=== PATIENT | female | born 1950 | race Caucasian/White ===

== ENCOUNTER → 2017-11-21 10:44 | Outpatient (CLI) | payer MEDICARE, SELFPAY ==
--- NOTE | 2017-11-21 | DI.RAD.S_ITS ---
PROCEDURE: XR CHEST 2V INDICATIONS: DYSPNEA TECHNIQUE: 2 views of the chest were acquired. COMPARISON: [facility], , CHEST 1 VIEW, 12/13/2016, 11:04. FINDINGS: Surgical changes and devices: Surgical clips right upper quadrant. Lungs and pleura: No pleural effusions or pneumothorax. Lungs are clear. Mediastinum: Mediastinal contours are normal. Heart size is normal. Bones and chest wall: No suspicious bony abnormalities. Mild thoracic spondylosis. Soft tissues appear unremarkable. IMPRESSION: No acute cardiopulmonary abnormality. Dictated by: Jeison Maldonado M.D. on 11/21/2017 at 11:36 Approved by: Jeison Maldonado M.D. on 11/21/2017 at 11:37
== END ==
PROVIDERS: Visit Provider Nurse Practitioner Family
DX: R06.00 Dyspnea, unspecified (principal)
CPT/HCPCS: 71046

== ENCOUNTER → 2017-12-10 07:42 | Outpatient (CLI) | payer MEDICARE, SELFPAY ==
--- NOTE | 2017-12-13 14:36 | PM.PFT.1 ---
Pulmonary Function Test Referral & Results Date Patient Seen: 12/10/17 Requesting provider: lBanka Gonzáles Results: The spirometry demonstrates an FVC of 2.45 L which is 77% of predicted. The FEV1 was measured at 1.95 L which is 80% of predicted. The FEV1/FVC ratio was 79 which is 104% of predicted. Following the administration of bronchodilator there was no appreciable change. Lung volumes show an SVC of 2.67 L which is 88% of predicted. The diffusing capacity was measured at 24.19 which is 92% of predicted. No hemoglobin value was provided, so no correction for potential anemia could be made, if appropriate. The maximum voluntary ventilation was reduced. Interpretation: This study demonstrates mild obstructive lung disease without evidence of benefit following bronchodilator. Lung volumes and diffusing capacity are probably normal. Compared to PFTs performed in December 2016, current study is essentially unchanged. Diffusing capacity was 20.08 in 2017 and currently 24.19 which is probably a significant improvement. Clinical correlation suggested
== END ==
PROVIDERS: Visit Provider Nurse Practitioner Family
DX: R06.00 Dyspnea, unspecified (principal)
CPT/HCPCS: 94010; 94060; 94726; 94729

== ENCOUNTER → 2018-05-14 08:19 | Outpatient (CLI) | payer MEDICARE, SELFPAY ==
--- NOTE | 2018-05-14 | DI.MG.S_ITS ---
BILATERAL DIGITAL SCREENING MAMMOGRAM 3D/2D WITH CAD: 05/14/2018 CLINICAL: Routine screening. Family history of breast cancer. Comparison is made to exams dated: 04/22/2017 mammogram, 04/16/2016 mammogram, and 05/25/2015 breast MRI [facility]. There are scattered fibroglandular elements in both breasts. Current study was also evaluated with a Computer Aided Detection (CAD) system. There is a benign biopsy clip in the right breast. No significant masses, calcifications, or other findings are seen in either breast. There has been no significant interval change. IMPRESSION: NEGATIVE There is no mammographic evidence of malignancy. A 1 year screening mammogram is recommended. This exam was interpreted at Station ID: [id number]. NOTE: For mammograms, a report in lay terms will be sent to the patient. Approximately 15% of breast malignancies will not be visualized mammographically. In the management of a palpable breast mass, a negative mammogram must not discourage biopsy of a clinically suspicious lesion. Electronically Signed By: Lobo yu/eduar:05/14/2018 14:16:16 letter sent: Normal Exam ACR BI-RADS Category 1: Negative [id number]
== END ==
PROVIDERS: PCP Internal Medicine; Visit Provider Internal Medicine
DX: Z12.31 Encounter for screening mammogram for malignant neoplasm of breast (principal); Z80.3 Family history of malignant neoplasm of breast
CPT/HCPCS: 77063; 77067

== ENCOUNTER → 2018-07-22 16:33 | Outpatient (CLI) | payer MEDICARE, SELFPAY ==
--- NOTE | 2018-07-22 16:37 | DI.RAD.S_ITS ---
PROCEDURE: XR CHEST 2V INDICATIONS: COUGH,CONGESTION SOB TECHNIQUE: 2 views of the chest were acquired. COMPARISON: [facility], CT, PE STUDY (CTA CHEST), 06/20/2016, 15:58. [facility], CR, XR CHEST 2V, 11/21/2017, 10:33. FINDINGS: Surgical changes and devices: None. Lungs and pleura: Lungs are clear. Biapical pleural parenchymal thickening, right greater than left, is unchanged. No pleural effusions or pneumothorax. Mediastinum: Mediastinal contours are normal. Heart size is normal. Bones and chest wall: No suspicious bony abnormalities. Soft tissues appear unremarkable. IMPRESSION: Stable chest films with no evidence of a acute pulmonary process. Dictated by: Charbel Grove M.D. on 07/22/2018 at 17:03 Approved by: Charbel Grove M.D. on 07/22/2018 at 17:06
== END ==
PROVIDERS: PCP Internal Medicine; Visit Provider Nurse Practitioner Family
DX: R05 Cough (principal); R09.89 Other specified symptoms and signs involving the circulatory and respiratory systems; R06.02 Shortness of breath
CPT/HCPCS: 71046

== ENCOUNTER 2018-10-01 10:06 | Emergency (ER) | payer MEDICARE, SELFPAY ==
[2018-10-01 10:10] VITALS: BP 128/90; PULSE 62; RESP 20; TEMP 36.2; O2SAT 100
--- NOTE | 2018-10-01 10:30 | ED_ITS ---
HPI - Neuro Symptoms/Deficit General Chief Complaint: Neuro Symptoms/Deficit Stated Complaint: sent over by doctor, dizzy, disconnected Time Seen by Provider: 10/01/18 10:29 Source: patient Mode of arrival: ambulatory Limitations: no limitations History of Present Illness HPI Narrative: Patient is a 68-year-old female not on blood thinner sent over by her primary doctor for evaluation of potential stroke. Patient states that several days ago she had a sudden onset of vision changes where she saw all triple. She states that it was with both eyes and with each eye individual. That event lasted approximately 10 minutes and then resolved. She also states that during the time she had right lower extremity weakness which also seems to have greatly improved if not completely resolved. Since then she has felt unsteady. Has vague vision changes. No headaches. Has never had anything like this before. Was seen by her primary doctor who ordered a outpatient MRI however after further consideration thought that this should be done more urgently so he sent her to the emergency room for further evaluation. On Anticoagulants: No Related Data Home Medications Medication Instructions Recorded Confirmed sertraline 100 mg PO BEDTIME #0 12/13/16 10/01/18 Vitamin B-12 1 tab PO DAILY 10/01/18 10/01/18 albuterol sulfate [Ventolin HFA] 1 puff INHALATION PRN PRN 10/01/18 10/01/18 aspirin 81 mg PO DAILY 10/01/18 10/01/18 tiotropium bromide [Spiriva with 1 puff INHALATION DAILY 10/01/18 10/01/18 HandiHaler] Previous Rx's Medication Instructions Recorded loratadine [Claritin] 10 mg PO DAILY PRN #30 tab 10/01/18 meclizine 25 mg PO BID-TID PRN #14 tab 10/01/18 Allergies Allergy/AdvReac Type Severity Reaction Status Date / Time No Known Drug Allergies Allergy Verified 10/01/18 10:18 Review of Systems Constitutional Denies chills, Denies fever(s), Denies frequent falls, Denies malaise and Denies weakness Eyes Comments: Vision changes 3 days ago but none today ENT Ears, Nose, Mouth, and Throat: Reports dizziness, Denies neck pain, Reports disequilibrium, Denies sinus pressure, Denies sore throat and Denies throat swelling Cardiovascular Denies chest pain and Denies dyspnea Respiratory Denies dyspnea Gastrointestinal Gastrointestinal: Denies abdominal pain, Denies nausea and Denies vomiting Musculoskeletal Denies myalgias, Denies arthralgias and Denies neck pain Integumentary/Breasts Denies lesions and Denies rash Neurologic Denies behavioral changes, Denies confusion, Reports dizziness, Denies frequent falls, Reports disequilibrium and Denies weakness Psychiatric Denies behavioral changes and Denies confusion Hematologic/Lymphatic Denies easy bleeding and Denies easy bruising Allergic/Immunologic Denies throat swelling [facility] Medical History Reactive airway disease (Acute) Social History Smoking Status: Never smoker Social History Smoking Status: Never smoker Exam Initial Vital Signs Initial Vital Signs: Vital Signs Temperature 97.1 F L 10/01/18 10:10 Pulse Rate 62 10/01/18 10:10 Respiratory Rate 20 10/01/18 10:10 Blood Pressure 128/90 10/01/18 10:10 Pulse Oximetry 100 10/01/18 10:10 Const General: cooperative, well developed, well groomed and No acute distress Orientation: alert, awake and oriented x3 HENMT Head: normal to inspection and normocephalic Ears: TM's normal bilaterally Nose: external nose normal Eyes Eyelids: eyelids normal Pupils: PERRL EOM: EOM intact bilaterally Resp Effort & Inspection: normal respiratory effort Auscultation: clear to auscultation bilaterally Cardio Rate: regular rate Rhythm: regular rhythm Pulses: radial pulses present GI Inspection: non-distended Palpation: soft, No firm and No tender Skin Lesions: no lesions Rashes: no rashes Neuro General: alert, awake and oriented x3 Cranial Nerves: CN's II-XI intact bilaterally Cognition: normal cognition Speech: speech normal Motor: muscle tone normal throughout Sensory Exam: no sensory deficits noted Extrem General: normal to inspection and capillary refill normal Psych Appearance: grossly normal and well kempt Scores GCS Winters coma scale eye opening: Spontaneous Winters coma scale verbal response: Orientated Maris coma scale motor response: Obey commands Winters coma scale total score: 15 NIH Stroke Scale Level of Conciousness: Alert, keenly responsive Ask month/age: Answers both questions correctly. Open/close eyes, close hand: Performs both tasks correctly Best gaze horizontal: Normal Visual pedro: No visual loss Facial palsy: Normal symetrical movement Left arm drift: No drift for full 10 sec Right arm drift: No drift for full 10 sec Left leg drift: No drift for full 10 sec Right leg drift: No drift for full 10 sec Limb ataxia: Absent Sensory on face/arms/legs: Normal, no sensory loss Best language: No aphasia, normal Dysarthria: Normal Extinction or inattention: No abnormality Total NIH Stroke scale score: 0 Course Orders Ordered: ED Orders 10/01/18 10:30 MR stroke Stat 10/01/18 10:32 Complete Blood Count AUTO DIFF Stat Comprehensive Metabolic Panel Stat Lipase Stat Partial Thromboplastin Time Stat Prothrombin Time INR Stat Thyroid Stimulating Hormone Stat Sodium Chloride (Normal Saline 0.9%) 1,000 mls @ 150 mls/hr IV CONT SERA Last Admin: 10/01/18 11:18 Dose: 150 mls/hr Discontinued Medications Diazepam (Valium) 5 mg PO NOW ONE Stop: 10/01/18 10:38 Last Admin: 10/01/18 10:40 Dose: 5 mg Vital Signs - 8 hr 10/01/18 10:10 10/01/18 11:24 Temperature 97.1 F L Pulse Rate 62 67 Respiratory Rate 20 17 Blood Pressure 128/90 Blood Pressure [Left Arm] 120/83 Pulse Oximetry 100 97 MDM - Neuro Symptoms/Deficit Lab Data Attestation: I reviewed the patient's lab results. Result diagrams: 10/01/18 10:32 10/01/18 10:32 Lab Results 10/01/18 10/01/18 10/01/18 Range/Units 10:32 10:32 10:32 WBC 4.6 (4.5-11.0) X10^3/uL RBC 4.23 (4.0-5.2) X10^6/uL Hgb 13.7 (12.0-16.0) g/dL Hct 39.4 (36-46) % MCV 93.2 (80-100) fL MCH 32.3 (26-34) PG MCHC 34.7 (30-36) % RDW 12.4 (11.6-14.8) % Plt Count 184 (150-400) X10^3/uL Neut % (Auto) 56.6 (50-75) % Lymph % (Auto) 30.5 (25-40) % Pendleton % (Auto) 7.3 (3-14) % Eos % (Auto) 4.8 H (2-4) % Baso % (Auto) 0.8 (0-2) % Neut # (Auto) 2600 (8031-0710) /uL Lymph # (Auto) 1400 (5157-8389) /uL Pendleton # (Auto) 300 (0-900) /uL Eos # (Auto) 200 (0-450) /uL Baso # (Auto) 0 (0-100) /uL PT 10.8 (10.1-12.7) SECONDS INR 0.9 (0.9-1.3) APTT 37 H (26.4-36.2) SECONDS Sodium 141 (137-145) mmol/L Potassium 3.7 (3.4-5.1) mmol/L Chloride 105 (98-107) mmol/L Carbon Dioxide 25 (22-32) mmol/L BUN 14 (7-17) mg/dL Creatinine 0.70 (0.52-1.04) mg/dL Estimated GFR > 60.0 (>60) mL/min BUN/Creatinine Ratio 20.0 (6-22) Glucose 77 L (80-110) mg/dL Calcium 9.8 (8.4-10.2) mg/dL Total Bilirubin 0.4 (0.2-1.3) mg/dL AST 34 (14-36) IU/L ALT 31 (9-52) IU/L Alkaline Phosphatase 81 (38-126) U/L Total Protein 7.2 (6.3-8.2) g/dL Albumin 4.5 (3.5-5.0) g/dL Globulin 2.7 (1.7-4.1) g/dL Albumin/Globulin Ratio 1.7 (1.0-2.8) Lipase 44 (23-300) U/L TSH (0.47-4.68) uIU/mL 10/01/18 Range/Units 10:32 WBC (4.5-11.0) X10^3/uL RBC (4.0-5.2) X10^6/uL Hgb (12.0-16.0) g/dL Hct (36-46) % MCV (80-100) fL MCH (26-34) PG MCHC (30-36) % RDW (11.6-14.8) % Plt Count (150-400) X10^3/uL Neut % (Auto) (50-75) % Lymph % (Auto) (25-40) % Pendleton % (Auto) (3-14) % Eos % (Auto) (2-4) % Baso % (Auto) (0-2) % Neut # (Auto) (6950-8519) /uL Lymph # (Auto) (1091-8009) /uL Pendleton # (Auto) (0-900) /uL Eos # (Auto) (0-450) /uL Baso # (Auto) (0-100) /uL PT (10.1-12.7) SECONDS INR (0.9-1.3) APTT (26.4-36.2) SECONDS Sodium (137-145) mmol/L Potassium (3.4-5.1) mmol/L Chloride (98-107) mmol/L Carbon Dioxide (22-32) mmol/L BUN (7-17) mg/dL Creatinine (0.52-1.04) mg/dL Estimated GFR (>60) mL/min BUN/Creatinine Ratio (6-22) Glucose (80-110) mg/dL Calcium (8.4-10.2) mg/dL Total Bilirubin (0.2-1.3) mg/dL AST (14-36) IU/L ALT (9-52) IU/L Alkaline Phosphatase (38-126) U/L Total Protein (6.3-8.2) g/dL Albumin (3.5-5.0) g/dL Globulin (1.7-4.1) g/dL Albumin/Globulin Ratio (1.0-2.8) Lipase (23-300) U/L TSH 3.12 (0.47-4.68) uIU/mL Imaging Data MRI brain: Radiologist's impression: Magnetic Resonance Report Signed Patient: Radha Steinberg KMR#: [id number] : 1950Acct:[id number] Age/Sex: 68 / FDate of Service: 10/01/18 Loc: ED Accession Number: [id number] Procedure: MR stroke Ordering Provider: Ranulfo Gómez D.O. PROCEDURE: MR STROKE Pre- and post-contrast brain MRI, non-contrast brain MR angiogram, pre- and postcontrast neck MR angiogram INDICATIONS: Blurry vision, ataxia, sent over by for workup TECHNIQUE: Brain: Noncontrast axial T1 spin echo, axial T2 fast spin echo, sagittal and axial FLAIR, coronal T2 fast spin echo, axial gradient echo, axial diffusion and ADC through the brain. After the administration of contrast, axial 3D VIBE of the cranial vasculature and brain. Brain MRA: Non-contrast 3-D time of flight MR angiogram, with multiple khreurj-chjvevdfr-wywtxnylnc (MIP) reformats performed. Neck MRA: Axial and sagittal TruFISP through the neck. Coronal dynamic MR angiogram during administration of contrast in the arterial and venous phases, with 3- dimenstional boljyjv-iravsehnp-kuyeasmmvt (MIP) reformats constructed from subtraction images. COMPARISON: [facility], MR, BRAIN WITHOUT CONTRAST, 12/13/2016, 14:23. FINDINGS: Image quality: Excellent. BRAIN: CSF spaces: Ventricles are normal in size and shape. Basal cisterns are patent. No extra-axial fluid collections. Brain: No intracranial bleeds or mass effects. Oreilly-white matter interface is normal. Age-appropriate cerebral and cerebellar cortical atrophy and mild periventricular white matter chronic ischemic microangiopathic changes are seen. Diffusion weighted images show no acute ischemic insults. Brainstem appears normal. Normal intravascular flow voids are present. No abnormal intracranial enhancement. Skull and face: Calvarial marrow signal is normal. Orbits appear normal. Sinuses: Sinuses and mastoids are clear. BRAIN MR ANGIOGRAM: Anterior circulation: Intracranial internal carotid arteries are normal in size and enhancement. The flow within the paired anterior cerebral arteries is normal and symmetric. The flow within the middle cerebral arteries is normal and symmetric. The anterior communicating artery is seen. No stenoses, occlusions, or aneurysms. Posterior circulation: The visualized portions of the vertebral arteries demonstrate normal caliber, and join to form a normal appearing basilar artery. The flow within the posterior cerebral arteries is normal and symmetric. No stenoses, occlusions, or aneurysms. NECK MR ANGIOGRAM: Carotids: Great vessels demonstrate a conventional anatomy as they arise from the aortic arch. The origins of the common carotid arteries appear patent. The calibers and courses of both common carotid arteries are normal. The bifurcation regions appear normal bilaterally. The internal carotid arteries demonstrate normal course and caliber. Posterior circulation: The origins of the vertebral arteries appear patent. More superior portions of both vertebral arteries demonstrate normal course and caliber, and join to form a normal appearing basilar artery. Miscellaneous: Subclavian arteries appear patent. Pre-contrast images through the neck show no soft tissue abnormalities. IMPRESSION: BRAIN MRI: No evidence of acute infarction, intracranial bleed or midline shift. No area of abnormal contrast enhancement. Age-appropriate atrophy and mild periventric ular white matter microangiopathic changes. BRAIN MR ANGIOGRAM: No hemodynamically significant stenosis or aneurysm is seen in intracranial circulation. NECK MR ANGIOGRAM: No hemodynamically significant stenosis is noted in bilateral neck arteries. Dictated by: Zaheer Suggs M.D. on 10/01/2018 at 11:24 Approved by: Zaheer Suggs M.D. on 10/01/2018 at 11:36 ECG Data Attestation: I personally reviewed and interpreted this ECG as follows: Prior ECG tracings: not available for review Interpretation: Sinus bradycardia Ventricular rate of 59 Normal axis Normal intervals Normal QRS Normal QTC No ST T wave changes MDM Narrative Medical decision making narrative: Labs unremarkable, MRI of the brain shows no signs of acute stroke. EKG is unremarkable. Patient with a nonfocal neurologic exam. I did discuss the case with Dr. weldon who sent her over for the MRI and who is also her primary doctor. Will attempt meclizine to see if this does not improve her symptoms. Also start her on Claritin. Patient also states that much of her symptoms improved after receiving the Valium for the MRI. She was concerned that potentially this was ?nerves? this could be an anxiety issue however I told her that the workup for stroke was appropriate. She expressed understanding and agreement. She will call Dr. Garvin office for follow-up. She was given return precautions. Her is at bedside for these discussions and also expressed understanding and agreement. Discharge Plan Departure Patient Disposition: Home Clinical Impression: Dizziness Instructions: DI for Dizziness-Nonvertigo Activity Restrictions/Additional Instructions: Dr. weldon is expecting your call today to schedule appointment in the next couple days. Take the medications as directed. Return to the emergency department for any new or worsening symptoms Prescriptions: New meclizine 25 mg tablet 25 mg PO BID-TID PRN (Reason: motion sickness) Qty: 14 RF: 0 loratadine [Claritin] 10 mg tablet 10 mg PO DAILY PRN (Reason: allergy symptoms) Qty: 30 RF: 0 No Action sertraline 100 MG tablet 100 mg PO BEDTIME Qty: 0 RF: 0 aspirin 81 mg Tablet,Delayed Release (Dr/Ec) 81 mg PO DAILY RF: 0 albuterol sulfate [Ventolin HFA] 90 mcg/actuation Hfa Aerosol Inhaler 1 puff INHALATION PRN PRN (Reason: Shortness Of Breath) RF: 0 Spiriva with HandiHaler 18 mcg capsule, w/inhalation device 1 puff Inhalation DAILY RF: 0 Vitamin B-12 1 tab PO DAILY RF: 0 Referrals: Michael Weldon MD [Primary Care Provider] -
[2018-10-01] MEDS: diazePAM 5 MG TABLET PO (10:40)
[2018-10-01 10:55] LABS: Add Manual Diff / Slide Review NO; Basophils Absolute Auto 0 /uL (0-100); Basophils Percent Auto 0.8 % (0-2); Eosinophils Absolute Auto 200 /uL (0-450); Eosinophils Percent Auto 4.8 % (2-4); Hematocrit 39.4 % (36-46); Hemoglobin 13.7 g/dL (12.0-16.0); Lymphocytes Absolute Auto 1400 /uL (1100-4500); Lymphocytes Percent Auto 30.5 % (25-40); Mean Corpuscular HGB Conc 34.7 % (30-36); Mean Corpuscular Hemoglobin 32.3 PG (26-34); Mean Corpuscular Volume 93.2 fL (80-100); Monocytes Absolute Auto 300 /uL (0-900); Monocytes Percent Auto 7.3 % (3-14); Neutrophils Absolute Auto 2600 /uL (1500-7000); Neutrophils Percent Auto 56.6 % (50-75); Platelet Count 184 X10^3/uL (150-400); Red Blood Cell Count 4.23 X10^6/uL (4.0-5.2); Red Cell Distribution Width 12.4 % (11.6-14.8); White Blood Cell Count 4.6 X10^3/uL (4.5-11.0)
[2018-10-01 10:59] LABS: INR 0.9 (0.9-1.3); Prothrombin Time 10.8 SECONDS (10.1-12.7)
[2018-10-01 11:02] LABS: PTT Partial Thromboplastin Tim 37 SECONDS (26.4-36.2)
[2018-10-01 11:11] LABS: Alanine Aminotransferase 31 IU/L (9-52); Albumin 4.5 g/dL (3.5-5.0); Albumin Globulin Ratio 1.7 (1.0-2.8); Alkaline Phosphatase 81 U/L (38-126); Aspartate Aminotransferase 34 IU/L (14-36); Bilirubin Total 0.4 mg/dL (0.2-1.3); Blood Urea Nitrogen 14 mg/dL (7-17); Calcium 9.8 mg/dL (8.4-10.2); Carbon Dioxide 25 mmol/L (22-32); Chloride 105 mmol/L (98-107); Estimated Glomerular Filt Rate > 60.0 mL/min (>60); Globulin 2.7 g/dL (1.7-4.1); Glucose 77 mg/dL (80-110); HEMOLYSIS < 15 (0-50); Lipase 44 U/L (23-300); Potassium 3.7 mmol/L (3.4-5.1); Sodium 141 mmol/L (137-145); Total Protein 7.2 g/dL (6.3-8.2)
[2018-10-01] MEDS: SODIUM CHLORIDE 0.9% 1,000 ML 150 ML IV (11:18)
[2018-10-01 11:24] VITALS: BP 120/83; PULSE 67; RESP 17; O2SAT 97
[2018-10-01 11:41] LABS: Thyroid Stimulating Hormone 3.12 uIU/mL (0.47-4.68)
[2018-10-01 12:31] VITALS: BP 132/96; PULSE 63; RESP 17; O2SAT 98
== END 2018-10-01 12:33 | disposition home or self-care (01) ==
PROVIDERS: Emergency Provider Emergency Medicine; PCP Internal Medicine
DX: R42 Dizziness and giddiness (principal); R53.1 Weakness; H53.8 Other visual disturbances
CPT/HCPCS: 36591; 70553; 80053; 83690; 84443; 85025; 85610; 85730; 93005; 93010; 96360; 99283; 99285; 99291; A9579

== ENCOUNTER → 2018-10-22 10:23 | Outpatient (CLI) | payer MEDICARE, SELFPAY ==
--- NOTE | 2018-10-22 11:11 | PM.TREADMILL ---
Cardiac Stress Test Report Referral & Results Date Patient Seen: 10/22/18 Requesting provider: Michael Weldon Indication: TIA Rest ECG: Unremarkable Procedure Note: Today following both written and verbal informed consent the patient was exercised according to a standard Ronaldo protocol patient went for a total of or minutes 32 seconds achieving a maximum heart rate of 149 maximum systolic blood pressure of 160. This is approximately 7.0 METS. Exercise was terminated at this point because of targets were met as well as moderate dyspnea. Patient was also given Cardiolite through a previously started Hep-Lock IV by the nuclear reactor engineer approximately 1 minute prior to the cessation of exercise. No ST-T segment changes identified Normal heart rate and blood pressure response to exercise Functional aerobic impairment rated 0 on the sedentary scale Impression: No evidence of ischemia based on ECG criteria Average exercise capacity Please see perfusion imaging report as well Please note: Actual ECG tracings can be found in the PACS system.
--- NOTE | 2018-10-23 17:10 | DI.NM.S_ITS ---
DATE OF SERVICE: 10/22/2018 PROCEDURE: Two-day treadmill nuclear stress test. INDICATIONS: TIA. RADIOISOTOPES: Resting TC-99m dose was 23.8 and stress Tc-99m dose was 24.8. SYMPTOMS: No angina during the stress test. Patient had njaw-wt-wtaielup dyspnea with exertion. CLINICAL: Patient exercised for 4 minutes and 32 seconds reaching 7.0. METs. RUFINO was 0% on sedentary scale of -15% and +20% on active scale; 99 % of maximum predicted heart rate reached, suggesting adequate stress. Appropriate hemodynamic response to exercise. No chest pain with exercise. Dyspnea noted during exercise. ECG: No ST changes to suggest ischemia during stress test. Sinus rhythm present during the study. PERFUSION IMAGES: No provision evidence of ischemia or infarction. GATED IMAGES: Normal left ventricular size, wall motion, and systolic function (post stress EF 68%). TID ratio 0.97. Lung to heart ratio is 0.29, normal. CONCLUSIONS: Low risk, normal treadmill nuclear stress test. 1. No perfusion evidence of ischemia or infarction. 2. Normal left ventricle or size, wall motion, and systolic function (post stress ejection fraction (EF) 68%). 3. No ECG evidence of ischemia. 4. No angina during the stress test. Patient noted to have dyspnea with exertion. 5. Fair exercise tolerance (7.0 METs, RUFINO 0% on sedentary scale, +20% on active scale). Target heart rate achieved. Appropriate blood pressure response to exercise. 5. Compared to the nuclear stress test done on 12/13/2016, no significant change. Radha Steinberg - WILLIAM/keyonna/ doc#: [id number]/job#: [id number] dd: 10/23/2018 13:09:00 dt: 10/23/2018 16:53:00 DICTATING /COPIES TO: Ashley Crisostomo MD COPIES MNE: FEDERICO
== END ==
PROVIDERS: PCP Internal Medicine; Visit Provider Internal Medicine
DX: G45.9 Transient cerebral ischemic attack, unspecified (principal); R06.00 Dyspnea, unspecified
CPT/HCPCS: 78452; 93016; 93017; 93018; A9502

== ENCOUNTER → 2018-12-15 07:45 | Outpatient (CLI) | payer MEDICARE, SELFPAY ==
--- NOTE | 2018-12-15 | DI.RAD.S_ITS ---
PROCEDURE: FL BARIUM SWALLOW INDICATIONS: Chest pain due to reflux suspected, prior history of fundoplication for excessive reflux. Unexplained pain. COMPARISON: [facility], , BARIUM SWALLOW WITH SPEECH, 08/31/2015, 10:29. FINDINGS: Function: There is normal esophageal peristalsis. There is mild spontaneous and elicited gastroesophageal reflux through the area of fundoplication, extending to the junction of the upper and middle thirds of the esophagus episodically. There is a distortion of the esophagogastric junction consistent with fundoplication, which is smoothly marginated. Morphology: Air-contrast images demonstrate normal mucosal morphology. Single contrast views show no esophageal strictures, extrinsic mass effects, or diverticula. Limited images of the stomach demonstrate normal appearance. IMPRESSION: Prior fundoplication, with mild episodic spontaneous and elicited gastroesophageal reflux allowing reflux to extend to the junction of the upper and middle thirds of the esophagus. No associated evidence of esophageal stricture or mucosal irregularity. A mass lesion is not found. Dictated by: Aleksey Catherine M.D. on 12/15/2018 at 8:58 Approved by: Aleksey Catherine M.D. on 12/15/2018 at 9:00
== END ==
PROVIDERS: PCP Internal Medicine; Visit Provider Internal Medicine
DX: R07.89 Other chest pain (principal); K21.9 Gastro-esophageal reflux disease without esophagitis
CPT/HCPCS: 74220

== ENCOUNTER → 2019-04-09 15:10 | Outpatient (CLI) | payer MEDICARE, SELFPAY ==
[2019-04-09 15:39] LABS: Add Manual Diff / Slide Review NO; Basophils Absolute Auto 0 /uL (0-100); Basophils Percent Auto 0.7 % (0-2); Eosinophils Absolute Auto 200 /uL (0-450); Eosinophils Percent Auto 3.8 % (2-4); Hematocrit 39.4 % (36-46); Hemoglobin 13.3 g/dL (12.0-16.0); Lymphocytes Absolute Auto 2000 /uL (1100-4500); Lymphocytes Percent Auto 31.8 % (25-40); Mean Corpuscular HGB Conc 33.7 % (30-36); Mean Corpuscular Hemoglobin 31.2 PG (26-34); Mean Corpuscular Volume 92.5 fL (80-100); Monocytes Absolute Auto 500 /uL (0-900); Monocytes Percent Auto 8.5 % (3-14); Neutrophils Absolute Auto 3400 /uL (1500-7000); Neutrophils Percent Auto 55.2 % (50-75); Platelet Count 183 X10^3/uL (150-400); Red Blood Cell Count 4.26 X10^6/uL (4.0-5.2); Red Cell Distribution Width 12.9 % (11.6-14.8); White Blood Cell Count 6.2 X10^3/uL (4.5-11.0)
[2019-04-09 16:34] LABS: Alanine Aminotransferase 29 IU/L (9-52); Albumin 4.6 g/dL (3.5-5.0); Albumin Globulin Ratio 1.7 (1.0-2.8); Alkaline Phosphatase 93 U/L (38-126); Aspartate Aminotransferase 38 IU/L (14-36); BUN Creatinine Ratio 22.9 (6-22); Bilirubin Total 0.4 mg/dL (0.2-1.3); Blood Urea Nitrogen 16 mg/dL (7-17); Calcium 10.1 mg/dL (8.4-10.2); Carbon Dioxide 29 mmol/L (22-32); Chloride 101 mmol/L (98-107); Estimated Glomerular Filt Rate > 60.0 mL/min (>60); Globulin 2.7 g/dL (1.7-4.1); Glucose 81 mg/dL (80-110); HEMOLYSIS < 15 (0-50); Potassium 4.2 mmol/L (3.4-5.1); Sodium 140 mmol/L (137-145); Total Protein 7.3 g/dL (6.3-8.2)
== END ==
PROVIDERS: PCP Internal Medicine; Visit Provider Nurse Practitioner Family
DX: R19.7 Diarrhea, unspecified (principal); K92.1 Melena
CPT/HCPCS: 36415; 80053; 85025

== ENCOUNTER → 2019-04-24 12:38 | Outpatient (CLI) | payer MEDICARE, SELFPAY ==
--- NOTE | 2019-04-24 | DI.MG.S_ITS ---
BILATERAL DIGITAL DIAGNOSTIC MAMMOGRAM 3D/2D: 04/24/2019 CLINICAL: Left breast lump and nipple pain. Comparison is made to exams dated: 05/14/2018 mammogram, 04/22/2017 mammogram, and 04/16/2016 mammogram - [facility]. There are scattered fibroglandular elements in both breasts. There is a triangular marker overlying the skin of the upper outer left breast at the site of the patient's reported palpable abnormality. There is no underlying mammographic abnormality directly underlying the triangular marker. There is an oval indistinct low density asymmetry located slightly inferior and lateral to to the triangular marker at anterior to middle depth. There is no underlying mass or abnormality on mammography to explain patient's reported left nipple and retroareolar pain. There are circular mole markers overlying the right breast. There is a biopsy clip in the superior lateral right breast. IMPRESSION: INCOMPLETE: NEEDS ADDITIONAL IMAGING EVALUATION There is a triangular marker overlying the skin of the upper outer left breast at the site of the patient's reported palpable abnormality. There is no underlying mammographic abnormality directly underlying the triangular marker. There is an oval indistinct low density asymmetry located slightly inferior and lateral to to the triangular marker at anterior to middle depth. Targeted diagnostic ultrasound recommended for further evaluation, which will be performed immediately following this exam. There is no underlying mass or abnormality on mammography to explain patient's reported left nipple and retroareolar pain. Targeted diagnostic ultrasound recommended for further evaluation, which will be performed immediately following this exam. This exam was interpreted at Station ID: [id number]. NOTE: For mammograms, a report in lay terms will be sent to the patient. Approximately 15% of breast malignancies will not be visualized mammographically. In the management of a palpable breast mass, a negative mammogram must not discourage biopsy of a clinically suspicious lesion. Electronically Signed By: Mauri Carter M.D. ecl/:04/24/2019 17:00:34 copy to: Michael Weldon ACR BI-RADS Category 0: Incomplete 3340F
--- NOTE | 2019-04-24 | DI.US.S_ITS ---
LIMITED ULTRASOUND OF LEFT BREAST: 04/24/2019 CLINICAL: Palpable left breast lump. Intermittent pain in the left breast. Comparison is made to exams dated: 04/24/2019 mammogram, 05/14/2018 mammogram, 04/22/2017 mammogram, 04/16/2016 mammogram, 05/25/2015 breast MRI, and 04/08/2015 mammogram - [facility]. Color flow and real-time ultrasound of the left breast outer aspect and retroareolar regions were performed. Oreilly scale images of the real-time examination were reviewed. Targeted ultrasound at the site of the patient's reported focal palpable abnormality of the left breast at the 12 o'clock position 3 cm from nipple demonstrates no underlying mass or abnormality. Targeted ultrasound of the left breast nipple and retroareolar region and along the 12:00 position at the site of patient's reported left breast tenderness and pain demonstrates no underlying mass or abnormality. Targeted ultrasound of an area of lumpiness/palpable abnormality as described by the patient in the left breast lower outer quadrant approximately 4-5 cm from the nipple demonstrates no underlying mass or abnormality. Targeted ultrasound of an area of focal tenderness in the left breast at 2:00 position 9 cm from the nipple demonstrates a benign-appearing intramammary lymph node measuring 0.5 x 0.6 x 0.2 cm with no focal cortical thickening and expected hilar vascularity on Doppler imaging. Targeted ultrasound of the upper-outer quadrant of the left breast demonstrates no other mass or abnormality to correlate with the oval low density asymmetry described on comparison mammogram of 04/24/19. Target ultrasound of the left axilla and left axillary tail pain demonstrates no left axillary tail or axilary mass or lymphadenopathy to correlate with patient's upper outer left breast pain, with a benign-appearing left axillary lymph node measuring 0.8 x 0.5 x 0.6 cm with no focal cortical thickening and preserved fatty hilum that demonstrates expected hilar vascularity on Doppler imaging. IMPRESSION: PROBABLY BENIGN 1) Targeted ultrasound of an area of focal tenderness in the left breast at 2:00 position 9 cm from the nipple demonstrates a 0.6 cm benign-appearing intramammary lymph node. Targeted ultrasound demonstrates no other mass or abnormality to correlate with the oval low density asymmetry described on comparison mammogram of 04/24/19 in the upper outer quadrant of the left breast. A follow up diagnostic mammogram in 6 months (with ultrasound if indicated) is recommended to demonstrate continued stability. The patient is advised to monitor her breasts and to return sooner for re-evaluation should she feel anything grow or change. 2) No ultrasound findings to explain the patient's remaining focal palpable abnormalities, breast pain, and breast tenderness as described above. Recommend clinical followup for further evaluation and management. This exam was interpreted at Station ID: [id number]. Electronically Signed By: Mauri Carter M.D. ecl/:04/24/2019 17:07:44 copy to: Michael Weldon letter sent: Followup Recommended Ultrasound BI-RADS: 3 Probably benign
== END ==
PROVIDERS: PCP Internal Medicine; Visit Provider Nurse Practitioner Family
DX: R92.8 Other abnormal and inconclusive findings on diagnostic imaging of breast (principal); N63.21 Unspecified lump in the left breast, upper outer quadrant; N64.4 Mastodynia
CPT/HCPCS: 76642; 77066; G0279

== ENCOUNTER 2019-08-27 11:55 | Emergency (ER) | payer MEDICARE, SELFPAY ==
[2019-08-27 12:00] VITALS: BP 120/76; PULSE 100; RESP 17; TEMP 38; O2SAT 97
--- NOTE | 2019-08-27 12:31 | DI.RAD.S_ITS ---
PROCEDURE: XR CHEST 2V INDICATIONS: shortness of breath/cough TECHNIQUE: 2 views of the chest were acquired. COMPARISON: [facility], CR, XR CHEST 2V, 07/22/2018, 16:39. FINDINGS: Surgical changes and devices: None. Lungs and pleura: Lungs are clear. No pleural effusions or pneumothorax. Mediastinum: Mediastinal contours are normal. Heart size is normal. Bones and chest wall: No suspicious bony abnormalities. Soft tissues appear unremarkable. IMPRESSION: No acute cardiopulmonary pathology. Dictated by: Zaheer Suggs M.D. on 08/27/2019 at 13:02 Approved by: Zaheer Suggs M.D. on 08/27/2019 at 13:02
--- NOTE | 2019-08-27 12:43 | ED_ITS ---
HPI - URI/Sore Throat <Susan Dickens, KENO WRITER / RUNNER - Last Filed: 08/27/19 21:49> General Chief Complaint: Shortness of Breath/Dyspnea Stated Complaint: states cant breath,sore throat,headache Time Seen by Provider: 08/27/19 12:06 Source: patient and family Mode of arrival: Ambulatory History of Present Illness HPI Narrative: 69yo sent by the clinic from Dr. Weldon for concerns of increasing lower respiratory symptoms. The patient states she has a history of small airway disease related to GERD, she states she takes Advair twice a day in uses her albuterol inhaler when needed. Patient states her and her were traveling from [place] last week, her had a cough, fever, and rhinorrhea 6 days ago which resolved after 24 hours. Patient states she develops symptoms approximately 6 days ago as well. She initially had rhinorrhea, dry cough, and fatigue. She was seen by Dr. weldon on Saturday, patient reports her lungs were clear at that time. Saturday (yesterday) patient developed a fever of 101F wh ich was reduced with Tylenol. She started to feel better this morning but then had an increase and coughing and shortness of breath, she also developed a fever of 100F. Patient called Dr. Weldon who recommended that she be seen in the emergency department. Patient denies any wheezing, productive cough (states it is rather dry), dizziness, vision changes, abdominal pain, vomiting, diarrhea, or any other concerns. She did states she occasionally an intermittent dull aching 4/10 pain on the right side of her neck for the past month, this is worse with movement, laying on her pillow wrong, and the pain is better with heat and massage. Related Data Home Medications Medication Instructions Recorded Confirmed albuterol sulfate [Ventolin HFA] 1 puff INHALATION PRN PRN 10/01/18 08/27/19 cyanocobalamin (vitamin B-12) 2,000 mcg PO DAILY 10/01/18 08/27/19 [Vitamin B-12] fluticasone propion-salmeterol 1 inh INHALATION BID 08/27/19 08/27/19 [Advair HFA] omeprazole 40 mg PO DAILY 08/27/19 08/27/19 Previous Rx's Medication Instructions Recorded oseltamivir [Tamiflu] 75 mg PO BID 5 Days #10 cap 08/27/19 oseltamivir [Tamiflu] 75 mg PO BID 5 Days #10 cap 08/27/19 Allergies Allergy/AdvReac Type Severity Reaction Status Date / Time No Known Drug Allergies Allergy Verified 08/27/19 12:31 Review of Systems <TYREE Vargas - Last Filed: 08/27/19 21:49> Review of Systems Narrative: REVIEW OF SYSTEMS: GENERAL: Reports fevers, see HPI. HENT: No head trauma or hearing loss. EYES: No loss of vision, double vision, eye pain, irritation or discharge. CARDIOVASCULAR: No syncope. RESPIRATORY: Reports cough, see HPI. GASTROINTESTINAL: No nausea, vomiting, diarrhea, or constipation. MUSCULOSKELETAL: No weakness or injury. INTEGUMENTARY: No rash, lesions, or pruritus. NEURO: No memory loss, or confusion. Patient History <TYREE Vargas - Last Filed: 08/27/19 21:49> Social History Smoking Status: Never smoker Smoking Status: Never smoker alcohol intake frequency: holidays/special occasions only Substance Use Type: does not use Exam <TYREE Vargas - Last Filed: 08/27/19 21:49> Initial Vital Signs Initial Vital Signs: Vital Signs Temperature 100.4 F H 08/27/19 12:00 Pulse Rate 100 H 08/27/19 12:00 Respiratory Rate 17 08/27/19 12:00 Blood Pressure 120/76 08/27/19 12:00 Pulse Oximetry 97 08/27/19 12:00 PHYSICAL EXAMINATION: GENERAL: Well groomed, alert, and cooperative. Answers questions promptly and appropriately. Vital signs noted. HENT: Normocephalic, atraumatic. Ear canals patent. TMs intact without mucus or erythema. Oropharynx with slight erythema, postnasal drip noted.. Tonsils are not present. EYES: Conjunctiva pink, sclera white, no periorbital swelling. No discharge. CHEST: Normal to inspection and without deformities. CARDIOVASCULAR: S1 and S2 sounds normal. Regular rate and rhythm, no murmurs, clicks, or bruits. RESPIRATORY: Normal respiratory rate, trachea midline, airway patent. No stridor, nasal flaring or accessory muscle use. Able to speak in full sentences. Lungs are clear in all pedro without wheeze, rhonchi, or crackles. Dry cough heard throughout examination. Patient's shortness of breath significantly improved after DuoNeb administration. GI: Abdomen soft without tenderness or masses. MUSCULOSKELETAL: Normal gait and coordination. Equal tone and mass bilaterally. EXTREMITIES: Moves all extremities. SKIN: Warm, dry, soft, appropriate color for ethnicity. No lesions, rashes, or wounds to visualized areas. NEURO: Alert and Oriented X 3. Good coordination. No ataxia or cognitive issues. PSYCH: Appropriate affect and mood. <Ranulfo Gómez DO - Last Filed: 09/04/19 20:37> Initial Vital Signs Initial Vital Signs: Vital Signs Temperature 100.4 F H 08/27/19 12:00 Pulse Rate 100 H 08/27/19 12:00 Respiratory Rate 17 08/27/19 12:00 Blood Pressure 120/76 08/27/19 12:00 Pulse Oximetry 97 08/27/19 12:00 Course <TYREE Vargas - Last Filed: 08/27/19 21:49> Course Course Narrative: Patient reported significant improvement of symptoms such as resolution of shortness of breath after administration of DuoNeb. Orders Ordered: Discontinued Medications Acetaminophen (Tylenol) 650 mg PO NOW ONE Stop: 08/27/19 12:44 Last Admin: 08/27/19 12:50 Dose: 650 mg Documented by: DAVID Albuterol/Ipratropium (Duoneb) 3 ml INH NOW ONE Stop: 08/27/19 14:52 Last Admin: 08/27/19 15:20 Dose: 3 ml Documented by: ILDEFONSO Espinoza Consultation #1: Patient was staffed with Dr. Gómez Vital Signs Vital signs: Vital Signs - 8 hr 08/27/19 14:30 08/27/19 15:00 08/27/19 15:31 Pulse Rate 92 H 88 90 Respiratory Rate 24 20 16 Blood Pressure [Left Arm] 110/68 103/62 Pulse Oximetry 94 91 97 <Ranulfo Gómez DO - Last Filed: 09/04/19 20:37> Orders Ordered: Discontinued Medications Acetaminophen (Tylenol) 650 mg PO NOW ONE Stop: 08/27/19 12:44 Last Admin: 08/27/19 12:50 Dose: 650 mg Documented by: DAVID Albuterol/Ipratropium (Duoneb) 3 ml INH NOW ONE Stop: 08/27/19 14:52 Last Admin: 08/27/19 15:20 Dose: 3 ml Documented by: ILDEFONSO Vital Signs Vital signs: Vital Signs - 8 hr 08/27/19 14:30 08/27/19 15:00 08/27/19 15:31 Pulse Rate 92 H 88 90 Respiratory Rate 24 20 16 Blood Pressure [Left Arm] 110/68 103/62 Pulse Oximetry 94 91 97 MDM - URI/Sore Throat <TYREE Vargas - Last Filed: 08/27/19 21:49> Medical Records Attestation: I reviewed the patient's medical records. Lab Data Attestation: I reviewed the patient's lab results. Labs: Lab Results 08/27/19 Range/Units 12:29 Chlamy pneumoniae PCR Not detected (Not Detect) Adenovirus (PCR) Not detected (Not Detect) B.parapertussis DNA PCR Not detected (Not Detect) Coronavirus OC43 (PCR) Not detected (Not Detect) Coronavirus HKU1 (PCR) Not detected (Not Detect) Coronavirus 229E (PCR) Not detected (Not Detect) Coronavirus NL63 (PCR) Not detected (Not Detect) Human Metapneumovir PCR Not detected (Not Detect) Influenza Type A (PCR) Detected H (Not Detect) Influenza Type B (PCR) Not detected (Not Detect) M. pneumoniae (PCR) Not detected (Not Detect) Parainfluenza 1 (PCR) Not detected (Not Detect) Parainfluenza 2 (PCR) Not detected (Not Detect) Parainfluenza 3 (PCR) Not detected (Not Detect) Parainfluenza 4 (PCR) Not detected (Not Detect) RSV (PCR) Not detected (Not Detect) Entero/Rhino (PCR) Not detected (Not Detect) Imaging Data Chest x-ray: Radiologist's Impression: [address] [address] XRay Report Signed Patient: Radha Steinberg KMR#: [id number] : 8Acct:[id number] Age/Sex: 69 / FDate of Service: 08/27/19 Loc: ED Accession Number: [id number] Procedure: XR chest 2V Ordering Provider: Hedlin,Susan K[employer] WRITER / RUNNER PROCEDURE: XR CHEST 2V INDICATIONS: shortness of breath/cough TECHNIQUE: 2 views of the chest were acquired. COMPARISON: [facility], CR, XR CHEST 2V, 07/22/2018, 16:39. FINDINGS: Surgical changes and devices: None. Lungs and pleura: Lungs are clear. No pleural effusions or pneumothorax. Mediastinum: Mediastinal contours are normal. Heart size is normal. Bones and chest wall: No suspicious bony abnormalities. Soft tissues appear unremarkable. IMPRESSION: No acute cardiopulmonary pathology. Dictated by: Zaheer Suggs M.D. on 08/27/2019 at 13:02 Approved by: Zaheer Suggs M.D. on 08/27/2019 at 13:02 [facility] Narrative Medical decision making narrative: 69-year-old female with history of small airway disease sent to the emergency department by Dr. weldon for continued shortness of breath and fevers over the past 5-6 days. Patient tested positive for influenza a, or shortness of breath was significantly improved after administration of DuoNeb. Chest x-ray was negative for any acute pulmonary process such as pneumonia. Patient's tachycardia and fever was significantly reduced after p.o. fluids and Tylenol. There is no other concern for bacterial illness due to non remarkable examination. Patient was not tested for Covid-19 as she does not meet criteria for admission for travel and was shown to test positive for the flu. After much discussion with patient about the benefits and side effects, Tamiflu treatment was started due to recent study by Henry LYON, that sickness decreased severity and duration of 3-4 days in elderly patients over 65 comorbidities even if symptom onset is greater than 48 hours. Patient was encouraged to drink lots of fluids. She was encouraged to follow up with her primary care provider in a week for further evaluation. She was encouraged to continue using her albuterol inhaler as needed for shortness of breath. Return precautions given for any new or worsening symptoms such as uncontrollable fevers, severe shortness of breath, or EDC. She agreed to plan of care verbalized understanding. No concern for cardiac involvement as her right arm pain is worse with movement, chest x-ray is normal, patient's shortness of breath significantly improved after DuoNeb administration, and patient clearly has a respiratory viral illness with rhinorrhea, sore throat, and dry cough. <Ranulfo Gómez, DO - Last Filed: 09/04/19 20:37> Lab Data Labs: Lab Results 08/27/19 Range/Units 12:29 Chlamy pneumoniae PCR Not detected (Not Detect) Adenovirus (PCR) Not detected (Not Detect) B.parapertussis DNA PCR Not detected (Not Detect) Coronavirus OC43 (PCR) Not detected (Not Detect) Coronavirus HKU1 (PCR) Not detected (Not Detect) Coronavirus 229E (PCR) Not detected (Not Detect) Coronavirus NL63 (PCR) Not detected (Not Detect) Human Metapneumovir PCR Not detected (Not Detect) Influenza Type A (PCR) Detected H (Not Detect) Influenza Type B (PCR) Not detected (Not Detect) M. pneumoniae (PCR) Not detected (Not Detect) Parainfluenza 1 (PCR) Not detected (Not Detect) Parainfluenza 2 (PCR) Not detected (Not Detect) Parainfluenza 3 (PCR) Not detected (Not Detect) Parainfluenza 4 (PCR) Not detected (Not Detect) RSV (PCR) Not detected (Not Detect) Entero/Rhino (PCR) Not detected (Not Detect) Discharge Plan Departure Patient Disposition: Home Clinical Impression: Influenza A Discharge Date/Time: 08/27/19 16:17 Instructions: DI for Influenza -- Adult Activity Restrictions/Additional Instructions: Thank you for entrusting me with your care today. As discussed, you have been diagnosed with influenza. I prescribed you Tamiflu per discussion to help decrease severity and prolonged symptoms, this was sent to [facility] in [place]. This medication may cause diarrhea, headaches, nausea, and or vomiting. Follow up with your primary care provider in 1-2 weeks for further evaluation if your symptoms continue. Continue to use your albuterol as needed for shortness of breath. Return emergency department if your symptoms worsen such as worsening shortness of breath, chest pain, syncope, high fevers that do not decreased with Tylenol or ibuprofen, or any other concerns. Prescriptions: New oseltamivir [Tamiflu] 75 mg capsule 75 mg PO BID 5 Days Qty: 10 RF: 0 oseltamivir [Tamiflu] 75 mg capsule 75 mg PO BID 5 Days Qty: 10 RF: 0 No Action cyanocobalamin (vitamin B-12) [Vitamin B-12] 2,000 mcg Tablet Extended Release 2,000 mcg PO DAILY RF: 0 albuterol sulfate [Ventolin HFA] 90 mcg/actuation Hfa Aerosol Inhaler 1 puff INHALATION PRN PRN (Reason: Shortness Of Breath) RF: 0 omeprazole 40 mg capsule,delayed release(DR/EC) 40 mg PO DAILY RF: 0 Advair HFA 230-21 mcg/actuation HFA aerosol inhaler 1 inh INHALATION BID RF: 0 Referrals: Michael Weldon MD [Primary Care Provider] - <Ranulfo Gómez, - Last Filed: 09/04/19 20:37> Sign Out Provider Sign Out Attestation: Dr Gómez Co-Sign Statement: I was available for consultation during this patient's emergency department visit. This chart is signed by myself for administrative purposes only. I did not have direct contact with this patient during this visit. They were seen independently by the APC.
[2019-08-27 12:50] VITALS: TEMP 38
[2019-08-27] MEDS: ACETAMINOPHEN 325 MG TABLET 650 MG PO (12:50)
--- NOTE | 2019-08-27 12:54 | PC.NURSE ---
Given 500mL of ice water to drink to hydrate patient.
[2019-08-27 13:23] VITALS: BP 110/65; PULSE 95; RESP 16; TEMP 36.9; O2SAT 97
[2019-08-27 14:30] VITALS: BP 110/68; PULSE 92; RESP 24; O2SAT 94
[2019-08-27 15:00] VITALS: BP 103/62; PULSE 88; RESP 20; O2SAT 91
[2019-08-27] MEDS: ALBUTEROL/IPRATROPIUM 3 ML AMPUL INH (15:20)
[2019-08-27 15:31] VITALS: PULSE 90; RESP 16; O2SAT 97
[2019-08-27 15:36] LABS: Adenovirus Not Detected (Not Detect); Bordetella pertussis Not Detected (Not Detect); Chlamydophila pneumoniae Not Detected (Not Detect); Coronavirus 229E Not Detected (Not Detect); Coronavirus HKU1 Not Detected (Not Detect); Coronavirus NL 63 Not Detected (Not Detect); Coronavirus OC43 Not Detected (Not Detect); Human Metapneumovirus Not Detected (Not Detect); Human Rhinovirus/Enterovirus Not Detected (Not Detect); Influenza A Detected (Not Detect); Influenza B Not Detected (Not Detect); Mycoplasma pneumoniae Not Detected (Not Detect); Parainfluenza Virus 1 Not Detected (Not Detect); Parainfluenza Virus 2 Not Detected (Not Detect); Parainfluenza Virus 3 Not Detected (Not Detect); Parainfluenza Virus 4 Not Detected (Not Detect); Respiratory Syncytial Virus Not Detected (Not Detect)
== END 2019-08-27 16:17 | disposition home or self-care (01) ==
PROVIDERS: Emergency Provider Nurse Practitioner; PCP Internal Medicine
DX: J10.1 Influenza due to other identified influenza virus with other respiratory manifestations (principal)
CPT/HCPCS: 71046; 87633; 94640; 99283

== ENCOUNTER → 2019-10-27 09:36 | Outpatient (CLI) | payer MEDICARE, SELFPAY ==
--- NOTE | 2019-10-27 | DI.MG.S_ITS ---
UNILATERAL LEFT DIGITAL DIAGNOSTIC MAMMOGRAM 3D/2D SHORT-TERM FOLLOW-UP: 10/27/2019 CLINICAL: Patient returns for a 6 month follow up of the left breast. Comparison is made to exams dated: 04/24/2019 mammogram, 05/14/2018 mammogram, and 04/22/2017 mammogram - [facility]. There are scattered fibroglandular elements in left breast. The previously seen oval asymmetry seen on the prior mammogram dated 04/24/19 is no longer seen. No significant masses, calcifications, or other findings are seen in the breast. IMPRESSION: There is no mammographic evidence of malignancy. Return to annual mammogram screening schedule is recommended. This exam was interpreted at Station ID: [id number]. NOTE: For mammograms, a report in lay terms will be sent to the patient. Approximately 15% of breast malignancies will not be visualized mammographically. In the management of a palpable breast mass, a negative mammogram must not discourage biopsy of a clinically suspicious lesion. Electronically Signed By: Kemi Lepe M.D. lk/:10/27/2019 10:23:40 letter sent: Normal Exam ACR BI-RADS Category 2: Benign Finding(s) 3342F
== END ==
PROVIDERS: PCP Internal Medicine; Referring Provider Internal Medicine; Visit Provider Internal Medicine
DX: R92.8 Other abnormal and inconclusive findings on diagnostic imaging of breast (principal)
CPT/HCPCS: 77065; G0279

== ENCOUNTER → 2020-01-29 07:30 | Outpatient (CLI) | payer MEDICARE, SELFPAY ==
[2020-01-29 08:24] LABS: Add Manual Diff / Slide Review NO; Basophils Absolute Auto 0 /uL (0-100); Basophils Percent Auto 0.8 % (0-2); Eosinophils Absolute Auto 300 /uL (0-450); Eosinophils Percent Auto 5.2 % (2-4); Hematocrit 38.7 % (36-46); Lymphocytes Absolute Auto 1400 /uL (1100-4500); Lymphocytes Percent Auto 26.7 % (25-40); Mean Corpuscular HGB Conc 33.5 % (30-36); Mean Corpuscular Hemoglobin 30.8 PG (26-34); Mean Corpuscular Volume 91.9 fL (80-100); Monocytes Absolute Auto 400 /uL (0-900); Neutrophils Absolute Auto 3100 /uL (1500-7000); Neutrophils Percent Auto 59.3 % (50-75); Platelet Count 164 X10^3/uL (150-400); Red Blood Cell Count 4.21 X10^6/uL (4.0-5.2); Red Cell Distribution Width 12.4 % (11.6-14.8); White Blood Cell Count 5.3 X10^3/uL (4.5-11.0)
[2020-01-29 08:45] LABS: Alanine Aminotransferase 42 IU/L (<35); Albumin 4.3 g/dL (3.5-5.0); Albumin Globulin Ratio 1.7 (1.0-2.8); Alkaline Phosphatase 98 U/L (38-126); Aspartate Aminotransferase 52 IU/L (14-36); BUN Creatinine Ratio 24.3 (6-22); Bilirubin Total 0.6 mg/dL (0.2-1.3); Blood Urea Nitrogen 18 mg/dL (7-17); Calcium 9.8 mg/dL (8.4-10.2); Carbon Dioxide 26 mmol/L (22-32); Chloride 106 mmol/L (98-107); Cholesterol 282 mg/dL (140-199); Estimated Glomerular Filt Rate > 60.0 mL/min (>60); Globulin 2.6 g/dL (1.7-4.1); Glucose 89 mg/dL (80-110); HDL Cholesterol 82 mg/dL (40-60); HEMOLYSIS < 15 (0-50); LDL Cholesterol Calculated 183 mg/dL (<100); Potassium 4.5 mmol/L (3.4-5.1); Sodium 138 mmol/L (137-145); Total Protein 6.9 g/dL (6.3-8.2); Triglycerides 85 mg/dL (35-150)
[2020-01-29 09:03] LABS: Vitamin D 25 Hydroxy (D3) 19.9 ng/mL (30.0-100.0)
[2020-01-29 09:15] LABS: TSH w/ Reflex to FT4 3.59 uIU/mL (0.47-4.68)
== END ==
PROVIDERS: PCP Registered Nurse Diabetes Educator; Referring Provider Registered Nurse Diabetes Educator; Visit Provider Registered Nurse Diabetes Educator
DX: F32.9 Major depressive disorder, single episode, unspecified (principal); K21.9 Gastro-esophageal reflux disease without esophagitis; R53.83 Other fatigue; Z13.1 Encounter for screening for diabetes mellitus; Z13.220 Encounter for screening for lipoid disorders; Z86.2 Personal history of diseases of the blood and blood-forming organs and certain disorders involving the immune mechanism; E55.9 Vitamin D deficiency, unspecified; E78.5 Hyperlipidemia, unspecified
CPT/HCPCS: 36415; 80053; 80061; 82306; 84443; 85025

== ENCOUNTER → 2020-02-08 07:24 | Outpatient (CLI) | payer MEDICARE, SELFPAY ==
--- NOTE | 2020-02-08 07:27 | DI.US.S_ITS ---
PROCEDURE: US ABDOMEN LIMITED INDICATIONS: ELEVATED LIVER ENZYMES TECHNIQUE: Real-time focused scanning was performed of the abdomen, with image documentation. COMPARISON: None. FINDINGS: The liver is normal in size and demonstrates no focal lesions. Status post cholecystectomy. There is no biliary dilatation, the common bile duct measures 4 mm. No significant pancreatic abnormality is seen on these images. IMPRESSION: Normal appearing liver. Status post cholecystectomy, without biliary dilatation. Dictated by: Rolando Hurst M.D. on 02/08/2020 at 9:11 Approved by: Rolando Hurst M.D. on 02/08/2020 at 9:12
[2020-02-08 08:40] LABS: HEMOLYSIS < 15 (0-50); Iron 97 ug/dL (37-170)
[2020-02-08 08:52] LABS: Percent Iron Saturation 24 % (15-50); Total Iron Binding Capacity 411 ug/dL (265-497); Transferrin 346 mg/dL (206-381)
[2020-02-08 09:17] LABS: Ferritin 17 ng/mL (11-264)
[2020-02-08 15:46] LABS: Hep C Virus Ab w/Reflex Quant NEGATIVE s/c (NEGATIVE)
[2020-02-09 08:41] LABS: Hepatitis A Ab IgM Negative (Negative); Hepatitis A Ab Total Positive (Negative); Hepatitis B Core AB w/Reflex Positive (Negative); Hepatitis B Core AB, IgM Negative (Negative)
== END ==
PROVIDERS: PCP Registered Nurse Diabetes Educator; Referring Provider Registered Nurse Diabetes Educator; Visit Provider Registered Nurse Diabetes Educator
DX: R74.8 Abnormal levels of other serum enzymes (principal); E78.5 Hyperlipidemia, unspecified; R79.89 Other specified abnormal findings of blood chemistry; Z90.49 Acquired absence of other specified parts of digestive tract
CPT/HCPCS: 36415; 76705; 82728; 83540; 83550; 86704; 86708; 86803

== ENCOUNTER → 2020-02-12 10:53 | Outpatient (CLI) | payer MEDICARE, SELFPAY ==
[2020-02-12 13:35] LABS: Hepatitis B Surface Antigen NEGATIVE s/c (NEGATIVE)
[2020-02-13 08:09] LABS: Hepatitis B Surf Ab Qualitativ Non Reactive (.)
== END ==
PROVIDERS: PCP Registered Nurse Diabetes Educator; Referring Provider Registered Nurse Diabetes Educator; Visit Provider Registered Nurse Diabetes Educator
DX: R76.8 Other specified abnormal immunological findings in serum (principal)
CPT/HCPCS: 36415; 86706; 87340

== ENCOUNTER → 2020-02-24 07:09 | Outpatient (CLI) | payer MEDICARE, SELFPAY ==
[2020-02-25 10:48] LABS: Hepatitis B Core AB w/Reflex Positive (Negative); Hepatitis B Core AB, IgM Negative (Negative)
[2020-02-26 20:59] LABS: Hepatitis B Virus DNA HBV DNA not detected IU/mL (.)
== END ==
PROVIDERS: PCP Registered Nurse Diabetes Educator; Referring Provider Registered Nurse Diabetes Educator; Visit Provider Registered Nurse Diabetes Educator
DX: R76.8 Other specified abnormal immunological findings in serum (principal)
CPT/HCPCS: 36415; 86704; 87517

== ENCOUNTER → 2020-04-17 14:03 | Outpatient (CLI) | payer MEDICARE, SELFPAY ==
[2020-04-18 14:10] LABS: COVID19 -Nasal RAPID Negative (Negative)
== END ==
PROVIDERS: PCP Registered Nurse Diabetes Educator; Visit Provider Physician Assistant
DX: Z11.59 Encounter for screening for other viral diseases (principal)
CPT/HCPCS: 87635

== ENCOUNTER → 2020-04-25 11:33 | Outpatient (CLI) | payer MEDICARE, SELFPAY ==
--- NOTE | 2020-04-25 | DI.MG.S_ITS ---
BILATERAL DIGITAL SCREENING MAMMOGRAM 3D/2D WITH CAD: 04/25/2020 CLINICAL: Family history of breast cancer. Routine screening. Comparison is made to exams dated: 10/27/2019 mammogram, 04/24/2019 mammogram, 05/14/2018 mammogram, 04/22/2017 mammogram, and 04/16/2016 mammogram - [facility]. There are scattered fibroglandular elements in both breasts. Current study was also evaluated with a Computer Aided Detection (CAD) system. There is a biopsy clip in the right breast. No significant masses, calcifications, or other findings are seen in either breast. There has been no significant interval change. IMPRESSION: NEGATIVE There is no mammographic evidence of malignancy. A 1 year screening mammogram is recommended. This exam was interpreted at Station ID: [id number]. NOTE: For mammograms, a report in lay terms will be sent to the patient. Approximately 15% of breast malignancies will not be visualized mammographically. In the management of a palpable breast mass, a negative mammogram must not discourage biopsy of a clinically suspicious lesion. Electronically Signed By: James suarez/eduar:04/25/2020 15:06:46 letter sent: Normal Exam ACR BI-RADS Category 1: Negative 3341F
== END ==
PROVIDERS: PCP Registered Nurse Diabetes Educator; Referring Provider Registered Nurse Diabetes Educator; Visit Provider Registered Nurse Diabetes Educator
DX: Z12.31 Encounter for screening mammogram for malignant neoplasm of breast (principal); Z80.3 Family history of malignant neoplasm of breast
CPT/HCPCS: 77063; 77067

== ENCOUNTER → 2020-05-05 09:55 | Outpatient (CLI) | payer MEDICARE, SELFPAY ==
[2020-05-05 12:12] LABS: Alanine Aminotransferase 22 IU/L (<35); Albumin Globulin Ratio 1.4 (1.0-2.8); Alkaline Phosphatase 75 U/L (38-126); Aspartate Aminotransferase 36 IU/L (14-36); Bilirubin Total 0.4 mg/dL (0.2-1.3); Bilirubin Unconjugated 0.4 mg/dL (0.0-1.1); Cholesterol 219 mg/dL (140-199); Globulin 2.8 g/dL (1.7-4.1); HDL Cholesterol 69 mg/dL (40-60); HEMOLYSIS < 15 (0-50); LDL Cholesterol Calculated 131 mg/dL (<100); Total Protein 6.8 g/dL (6.3-8.2); Triglycerides 97 mg/dL (35-150)
== END ==
PROVIDERS: PCP Registered Nurse Diabetes Educator; Referring Provider Registered Nurse Diabetes Educator; Visit Provider Registered Nurse Diabetes Educator
DX: E78.5 Hyperlipidemia, unspecified (principal); R79.89 Other specified abnormal findings of blood chemistry
CPT/HCPCS: 36415; 80061; 80076

== ENCOUNTER → 2020-08-02 11:39 | Outpatient (CLI) | payer MEDICARE, SELFPAY ==
--- NOTE | 2020-08-02 | DI.RAD.S_ITS ---
PROCEDURE: XR CERVICAL SPINE 2V OR 3V INDICATIONS: NECK PAIN TECHNIQUE: 3 views of the cervical spine were acquired. COMPARISON: None. FINDINGS: Bones: No acute fractures or dislocations to the C7 level. The lateral masses of C1 appear intact on the odontoid view. No suspicious bony lesions. Multilevel disc space narrowing, and degenerative endplate changes, and uncovertebral joint and facet hypertrophy are seen that appear worst at the C4-5 and C5-6 levels. Soft tissues: No prevertebral soft tissue swelling. IMPRESSION: No acute osseous abnormality. Moderate multilevel spondylosis. Dictated by: Yinka Call M.D. on 08/02/2020 at 12:55 Approved by: Yinka Call M.D. on 08/02/2020 at 12:56
== END ==
PROVIDERS: PCP Physician Assistant; Referring Provider Physician Assistant; Visit Provider Physician Assistant
DX: M54.2 Cervicalgia (principal); M47.812 Spondylosis without myelopathy or radiculopathy, cervical region
CPT/HCPCS: 72040

== ENCOUNTER → 2020-11-03 09:42 | Outpatient (CLI) | payer MEDICARE, SELFPAY ==
--- NOTE | 2020-11-03 | DI.RAD.S_ITS ---
PROCEDURE: XR HAND LT MIN 3V INDICATIONS: BI HAND PAIN TECHNIQUE: 3 views of the hand(s) acquired. COMPARISON: [facility], CR, XR HAND RT MIN 3V, 11/03/2020, 9:59. FINDINGS: Bones: No fractures or dislocations. Carpal bones are normally aligned. No suspicious bony lesions. Syns-gu-aqvvlsrk osteoarthritic changes are present involving the radiocarpal joint, triscaphe joint, 1st carpometacarpal joint, 1st metacarpophalangeal joint, and multiple interphalangeal joints. Soft tissues: No suspicious soft tissue calcifications. IMPRESSION: Umvi-dm-ukllbidk osteoarthritic changes. Dictated by: Karl Davis M.D. on 11/03/2020 at 16:53 Approved by: Karl Davis M.D. on 11/03/2020 at 16:54
--- NOTE | 2020-11-03 | DI.RAD.S_ITS ---
PROCEDURE: XR HAND RT MIN 3V INDICATIONS: BI HAND PAIN TECHNIQUE: 3 views of the hand(s) acquired. COMPARISON: [facility], CR, XR HAND LT MIN 3V, 11/03/2020, 9:59. FINDINGS: Bones: No fractures or dislocations. Carpal bones are normally aligned. No suspicious bony lesions. There is eejl-wb-schmexjg osteoarthritic changes at the radiocarpal joint, triscaphe joint, 1st carpometacarpal joint, 1st metacarpophalangeal joint and multiple interphalangeal joints. Soft tissues: No suspicious soft tissue calcifications. IMPRESSION: Enjv-tm-[id number] osteoarthritic changes. Dictated by: Karl Davis M.D. on 11/03/2020 at 17:03 Approved by: Karl Davis M.D. on 11/03/2020 at 17:04
[2020-11-03 10:27] LABS: Add Manual Diff / Slide Review NO; Basophils Absolute Auto 0 /uL (0-100); Basophils Percent Auto 0.6 % (0-2); Eosinophils Absolute Auto 300 /uL (0-450); Eosinophils Percent Auto 6.6 % (2-4); Hematocrit 37.9 % (36-46); Hemoglobin 12.6 g/dL (12.0-16.0); Lymphocytes Absolute Auto 1600 /uL (1100-4500); Lymphocytes Percent Auto 34.5 % (25-40); Mean Corpuscular HGB Conc 33.2 % (30-36); Mean Corpuscular Volume 93.5 fL (80-100); Monocytes Absolute Auto 400 /uL (0-900); Neutrophils Absolute Auto 2300 /uL (1500-7000); Neutrophils Percent Auto 50.3 % (50-75); Platelet Count 161 X10^3/uL (150-400); Red Blood Cell Count 4.05 X10^6/uL (4.0-5.2); Red Cell Distribution Width 12.5 % (11.6-14.8); White Blood Cell Count 4.6 X10^3/uL (4.5-11.0)
[2020-11-03 10:44] LABS: Alanine Aminotransferase 22 IU/L (<35); Albumin Globulin Ratio 1.5 (1.0-2.8); Alkaline Phosphatase 70 U/L (38-126); Aspartate Aminotransferase 35 IU/L (14-36); BUN Creatinine Ratio 23.3 (6-22); Bilirubin Total 0.2 mg/dL (0.2-1.3); Blood Urea Nitrogen 17 mg/dL (7-17); Calcium 9.5 mg/dL (8.4-10.2); Carbon Dioxide 27 mmol/L (22-32); Chloride 106 mmol/L (98-107); Estimated Glomerular Filt Rate > 60.0 mL/min (>60); Globulin 2.7 g/dL (1.7-4.1); Glucose 92 mg/dL (80-110); Potassium 4.5 mmol/L (3.4-5.1); Sodium 139 mmol/L (137-145); Total Protein 6.7 g/dL (6.3-8.2)
[2020-11-03 10:45] LABS: Erythrocyte Sedimentation Rate 27 MM/HR (0-20)
[2020-11-03 19:14] LABS: HEMOLYSIS < 15 (0-50)
[2020-11-03 19:16] LABS: Rheumatoid Factor < 8.6 IU/mL (<12.0)
[2020-11-05 18:24] LABS: ANA Screen, IFA Positive (.)
[2020-11-07 00:06] LABS: CCP Antibodies IgG/IgA 3 units (0-19)
== END ==
PROVIDERS: PCP Physician Assistant; Referring Provider Physician Assistant; Visit Provider Physician Assistant
DX: I10 Essential (primary) hypertension (principal); M25.549 Pain in joints of unspecified hand
CPT/HCPCS: 36415; 73130; 80053; 85025; 85651; 86038; 86200; 86430

== ENCOUNTER → 2020-11-15 14:35 | Outpatient (CLI) | payer MEDICARE, SELFPAY | PROVIDERS: PCP Physician Assistant; Referring Provider Physician Assistant; Visit Provider Physician Assistant | DX: M85.851 Other specified disorders of bone density and structure, right thigh (principal); Z78.0 Asymptomatic menopausal state | CPT/HCPCS: 77080 ==

== ENCOUNTER → 2021-01-09 16:29 | Outpatient (CLI) | payer MEDICARE, SELFPAY ==
--- NOTE | 2021-01-09 | DI.MRI.S_ITS ---
PROCEDURE: MR HAND RT WO CON INDICATIONS: PAIN TECHNIQUE: Noncontrast coronal T1 spin echo and T2 fast spin echo with fat saturation, axial proton density fast spin echo and T2 fast spin echo with fat saturation, sagittal T1 spin echo and STIR through the hand and fingers. COMPARISON: [facility], CR, XR HAND RT MIN 3V, 11/03/2020, 9:59. FINDINGS: Image quality: Excellent. Bones: Moderate degenerative changes at the 1st carpometacarpal and metacarpophalangeal joints with a small 1st metacarpophalangeal fusion. Mild degenerative changes are seen in the interphalangeal joints of the fingers. No osseous erosions or osteitis. No intra-osseous lesions. Soft tissues: There is partial tearing of the extensor digitorum communis tendons to the 2nd and 3rd fingers at the level of the wrist with 4th extensor compartment tenosynovitis. Findings are better demonstrated on the wrist MRI exam performed on the same day. Mild extensor carpi ulnaris tendinosis and tenosynovitis is also seen. A 7 mm ganglion cyst is seen dorsal to the triscaphe joint. A 5 x 4 x 5 mm T2-hyperintense lesion is seen in the subcutaneous tissues volar to the 3rd proximal phalangeal shaft (image 13 of series 5) that is most likely a small adventitial bursal collection or ganglion cyst versus focal venous varix or soft tissue mass. Visualized muscles demonstrate normal bulk and internal signal. No intramuscular masses identified. IMPRESSION: 1. Partial intrasubstance tearing of the extensor digitorum communis tendons to the 2nd and 3rd fingers with tenosynovitis involving the 4th extensor compartment. 2. Mild extensor carpi ulnaris tendinosis and tenosynovitis. 3. Ovoid 5 mm T2-hyperintense lesion in the subcutaneous tissues at the volar aspect of the 3rd finger at the level of the proximal phalangeal shaft. This most likely represents a cystic lesion such as an adventitial bursal effusion or ganglion cyst, although rarely a solid mass can have a similar appearance. Recommend correlation with clinical exam findings. Targeted ultrasound or contrast enhanced MRI could be obtained for further evaluation if there is suspicion for a solid mass. 4. Moderate osteoarthrosis at the 1st carpometacarpal and 1st metacarpophalangeal joints. 5. Small 7 mm ganglion cyst dorsal to the triscaphe joint. Dictated by: Yinka Call M.D. on 01/10/2021 at 8:26 Approved by: Yinka Call M.D. on 01/10/2021 at 8:37
--- NOTE | 2021-01-09 | DI.MRI.S_ITS ---
PROCEDURE: MR WRIST RT WO CON INDICATIONS: Pain in right wrist and hand TECHNIQUE: Noncontrast coronal proton density fast spin echo and T2 fast spin echo with fat saturation; coronal 3-D gradient echo, axial T1 spin echo and T2 fast spin echo with fat saturation, sagittal T1 spin echo through the wrist. COMPARISON: [facility], CR, XR HAND RT MIN 3V, 11/03/2020, 9:59. FINDINGS: Image quality: Excellent. Bones and cartilage: The carpal bones are normally aligned. Mild edema is seen at the proximal ulnar aspect of the lunate that may be related to a prior contusion or degenerative changes. There is neutral ulnar variance. There is full-thickness cartilage loss at the 1st carpometacarpal joint with small subchondral cystic changes and marginal spurring. Bchz-cz-sesbprgm degenerative changes are seen at the 1st metacarpophalangeal joint with small joint effusion. No evidence for avascular necrosis. Carpal ligaments: The scapholunate and lunotriquetral ligaments appear intact. Triangular fibrocartilage complex: Mildly increased signal intensity is seen at the ulnar attachments of the triangle fibrocartilage without definite fluid signal intensity. Tendons and soft tissues: The carpal tunnel structures appear normal, including the median nerve. The ulnar nerve appears normal within Guyon's canal. There is partial intrasubstance tearing of the 2nd extensor digitorum communis tendon just distal to Ellen's tubercle with tenosynovitis of the remaining 4th extensor compartment tendons and mild partial intrasubstance tearing of the 3rd extensor tendon. There is mild tendinosis and tenosynovitis of the extensor carpi ulnaris tendon. The remaining extensor tendons are intact. A small ganglion cyst is seen dorsal to the triscaphe joint measuring 7 x 4 x 5 mm. IMPRESSION: 1. Moderate partial intrasubstance tearing of the extensor digitorum communis tendon to the 2nd digit just distal to Ellen's tubercle. There is also mild intrasubstance tearing of the 3rd extensor tendon and tenosynovitis throughout the 4th extensor compartment. 2. Mild tendinosis and tenosynovitis of the extensor carpi ulnaris tendon. 3. Small focus of edema at the proximal ulnar aspect of the ulna may be secondary to a prior impaction injury or chronic degenerative changes. There is neutral ulnar variance. 4. Mildly increased signal at the ulnar attachments of the triangle fibrocartilage may represent intrasubstance degeneration or low-grade partial tearing. 5. Moderate degenerative changes at the 1st carpometacarpal joint and mild to moderate osteoarthrosis at the 1st metacarpophalangeal joint. 6. Small 7 mm ganglion cyst dorsal to the triscaphe joint. Dictated by: Yinka Call M.D. on 01/10/2021 at 8:11 Approved by: Yinka Call M.D. on 01/10/2021 at 8:26
== END ==
PROVIDERS: Family Provider Physician Assistant; PCP Physician Assistant; Referring Provider Internal Medicine Rheumatology; Visit Provider Internal Medicine Rheumatology
DX: M25.531 Pain in right wrist (principal); M79.641 Pain in right hand; S66.310A Strain of extensor muscle, fascia and tendon of right index finger at wrist and hand level, initial encounter; S66.312A Strain of extensor muscle, fascia and tendon of right middle finger at wrist and hand level, initial encounter; M65.841 Other synovitis and tenosynovitis, right hand; M19.041 Primary osteoarthritis, right hand; M18.11 Unilateral primary osteoarthritis of first carpometacarpal joint, right hand; M67.431 Ganglion, right wrist
CPT/HCPCS: 73218; 73221

== ENCOUNTER 2021-01-31 13:45 | Outpatient (RCR) | payer MEDICARE, SELFPAY ==
--- NOTE | 2021-01-19 16:13 | PT.OIE ---
Current Diagnoses Spondylosis without myelopathy or radiculopathy, cervical region (01/19/21) Abnormal posture (01/19/21) Past Medical History (Last Reviewed 05/03/20 @ 07:18 by TYREE Castro) Depression Dyslipidemia GERD (gastroesophageal reflux disease) Hepatitis B core antibody positive History of anemia Knee pain, bilateral Liver enzyme elevation Low vitamin D level Reactive airway disease Visit Care Team Role Provider Type Neyda Cohen PA-C Family Provider Non-Staff Primary Care Provider Specialty: Medical Address: [address] [place] [address], [id number] Email: Eusebia Villanueva MD Attending Provider Non-Staff Referring Provider Specialty: Rheumatology Address: [address] [place] [address], [id number] Email: Physical Therapy Initial Evaluation PT-OP-A Visit Information Start: 01/19/21 08:51 Freq: Status: Active Protocol: Document 01/19/21 11:15 AW (Rec: 01/19/21 17:02 AW [email or web address]) Out-Patient Physical Therapy Visit Information Visit Information Visit Type Initial Evaluation Visit Start Time 10:30 Visit Stop Time 11:15 Total Visit Minutes 45 Visit Number 1 Number of CERTIFIED SCRUB TECH Visits 0 Evaluation Information Evaluation Date 01/19/21 Precautions Precautions osteopenia, orthopnea PT-OP-B Current Condition Start: 01/19/21 08:51 Freq: Status: Active Protocol: Document 01/19/21 11:15 AW (Rec: 01/19/21 08:56 AW [email or web address]) Current Condition History of Current Condition Onset Date chronic with acute symptoms last few months Current Complaints neck and mid back pain History of Current Condition Pt reports neck pain off and on for years but it usually goes away. It has not gone away over the past few months. In early 2020, she was sailing in [place] and spent a lot of time looking up at the sails one day. After that, her right arm went numb and she had trouble moving it. She was treated wt chiropractic and her arm improved. She now notices difficulty with neck rotation which she attributes to pain in her lower neck and upper traps. She has rheumatoid arthritis which mostly affects her hands. Prior Treatments and Tests - Accupuncture B knee pain - C-spine x-ray July 2020: Bones: No acute fractures or dislocations to the C7 level. The lateral masses of C1 appear intact on the odontoid view. No suspicious bony lesions. Multilevel disc space narrowing, and degenerative endplate changes, and uncovertebral joint and facet hypertrophy are seen that appear worst at the C4-5 and C5-6 levels. Soft tissues: No prevertebral soft tissue swelling. IMPRESSION: No acute osseous abnormality. Moderate multilevel spondylosis. Future Testing and Treatments Planned Rheumatology follow up on 02/01 Developmental History Developmental History GERD, rheumatoid arthritis, osteopenia Prior Functional Status Baseline Function- ADL's Independent Baseline Function- Mobility Independent Current Functional Impairments (Reported) Functional Limitations- Recreation/ Pt has neck pain with quilting Hobbies . PT-OP-C Subjective Start: 01/19/21 08:51 Freq: Status: Active Protocol: Document 01/19/21 11:15 AW (Rec: 01/19/21 17:02 AW [email or web address]) Patient Questionnaires Neck Disability Index NDI Score 17 Neck Disability Index Impairment 20 to 39% Impaired (Score 10- 19) OP-PT Pain Assessment Pain Assessment Grid Paper Pain Assessment Grid Completed No PT-OP-F Manual Assessment Start: 01/19/21 08:51 Freq: Status: Active Protocol: Document 01/19/21 11:15 AW (Rec: 01/22/21 15:48 AW [id number]) Manual Assessments Soft Tissue Assessment Soft Tissue Mobility Assessment Moderate tone at bilateral cervical paraspinals and upper trapezius (R>L). PT-OP-H Neuro Start: 01/19/21 08:51 Freq: Status: Active Protocol: Document 01/19/21 11:15 AW (Rec: 01/22/21 15:48 AW [id number]) Sensation Evaluation Gross Sensation Gross Sensation WNL Deep Tendon Reflex & Clonus Assessment Deep Tendon Reflex Bilateral Bicep Deep Tendon Reflex 2+ Normal PT-OP-J Posture/Palpation/Skin Start: 01/19/21 08:51 Freq: Status: Active Protocol: Document 01/19/21 11:15 AW (Rec: 01/22/21 15:48 AW [id number]) Posture Evaluation Position Sitting Evaluation View Lateral Head/C-Spine Posture Excess Extension,Forward Head T-Spine Posture Increased Kyphosis Shoulder Posture (L) Rounded,(R) Rounded,(L) Forward,(R) Forward Scapula Posture (L) Protracted,(R) Protracted Arm Posture (L) Internally Rotated,(R) Internally Rotated PT-OP-K Range of Motion Start: 01/19/21 08:51 Freq: Status: Active Protocol: Document 01/19/21 11:15 AW (Rec: 01/22/21 15:48 AW [id number]) Cervical Spine Range of Motion Cervical Spine Active Degrees Testing Position Sitting Flexion 34 Extension 25 Rotation Left 25 Rotation Right 35 Lateral Flexion Left 12 Lateral Flexion Right 18 ROM Limitations Pain Shoulder Goniometric Range of Motion Shoulder left Shoulder ROM WFL Yes Flexion 155 Abduction 135 right Shoulder ROM WFL Yes Flexion 155 Abduction 130 PT-OP-L Special Tests Start: 01/19/21 08:51 Freq: Status: Active Protocol: Document 01/19/21 11:15 AW (Rec: 01/22/21 15:48 AW [id number]) Special Tests Cervical Spine Special Tests Traction Test Results vaguely relieving Spurling's Test Test Results negative bilaterally PT-OP-M Strength Start: 01/19/21 08:51 Freq: Status: Active Protocol: Document 01/19/21 11:15 AW (Rec: 01/22/21 15:48 AW [id number]) Cervical Spine Strength Cervical Spine Manual Muscle Testing Testing Position Sitting Flexion (C1-2) 4 Good Extension 4+ Good+ Rotation Left 4 Good Rotation Right 4+ Good+ Lateral Flexion Left (C3) 4 Good Lateral Flexion Right (C3) 4+ Good+ Scapula Strength Scapula Manual Muscle Testing bilateral Elevation (C4) 5 Normal Adduction 4 Good Abduction 4 Good Shoulder Strength Shoulder Manual Muscle Testing bilateral Flexion 4+ Good+ External Rotation 4 Good Internal Rotation 4+ Good+ Comments Abduction: R 4+/5; L 4/5 PT-OP-Q Treatments Start: 01/19/21 08:51 Freq: Status: Active Protocol: Document 01/19/21 11:15 AW (Rec: 01/19/21 17:06 AW [email or web address]) Therapeutic Exercises Sitting Exercises cervical retraction Sitting Exercise Name cervical retraction Reps/Minutes x10 Comments HEP scapular retraction Sitting Exercise Name scapular retraction Side bilateral Reps/Minutes x10 Comments HEP UT stretch Sitting Exercise Name UT stretch Side bilateral Resistance self, manual Reps/Minutes 30 SH x 4 Comments HEP Manual Therapy Treatment Soft Tissue Mobilization UT, cervical paraspinals, lev scap, rhomboids Mobilization Type Strumming,Sustained Pressure Intensity/Depth Moderate Body Position Supine Manual Traction Cervical Body Position Supine Reps/Duration 30 sec x 3 Comments relieving Self-Care/Home Management Treatment Education Patient Education Home Exercise Program Other Education UT stretch, cervical retraction, scapular retraction PT-OP-T Assessment and Plan Start: 01/19/21 08:51 Freq: Status: Active Protocol: Document 01/19/21 11:15 AW (Rec: 01/22/21 16:12 AW [id number]) Physical Therapy Assessment Rehab Potential Rehabilitation Potential Excellent Evaluation Complexity Number of Personal Factors/Comorbidities 1-2 Number of Body Systems Impaired 1-2 Clinical Presentation at Evaluation Stable Impairments Impairments Functional Activities,Pain, Posture,ROM,Soft Tissue Mobility,Strength Other Concerns Barriers to Rehabilitation (-) depression (+) active lifestyle and positive association with movement Goals Four Impairment NDI Long-Term Goal (LTG) Pt will score 20% impaired or less on NDI to demonstrate improved function in daily activities. LTG Duration 10 weeks - 03/30/21 Three Impairment ROM Short Term Goal (STG) Pt will improve lateral flexion to 25 degrees bilaterally (from 18 deg R and 12 deg L) with 2/10 or less pain STG Duration 4 weeks - 02/16/21 Paper Coater Goal (LTG) Pt will improve cervical rotation to at least 45 degrees bilaterally with 2/10 or less pain for improved comfort and safety while driving. LTG Duration 10 weeks - 03/30/21 Two Impairment lacks HEP Short Term Goal (STG) Pt will be independent with HEP to support therapy services provided in clinic STG Duration 4 weeks - 02/16/21 Long-Term Goal (LTG) Pt will perform HEP with good awareness and postural self- correction absent any external verbal cues. LTG Duration 10 weeks - 03/30/21 One Impairment posture Short Term Goal (STG) Pt will be educated in implications of posture for neck pain and ROM STG Duration 4 weeks - 02/16/21 Long-Term Goal (LTG) Pt will set up her quilting workspace for optimal posture and improved biomechanics to allow her to quilt up to one hour at a time without increase in baseline pain. LTG Duration 10 weeks - 03/30/21 Assessment Summary Assessment Radha is a 71 yo woman seen in outpatient PT with complaints of neck/mid-back pain and decreased cervical range of motion - epecially in rotation. She denies all red flag signs. She presents with habitual postures which are likely predisposing for injury . Weak cervical and scapular stabilizers along with shortened pectoral fibers are perpetuating for her condition . She would benefit from skilled physical therapy to address these impairments in order to allow her to complete daily and recreational activities such as driving and quilting with reduced pain. Therapy will also aim to reduce the likelihood of further injury. Physical Therapy Plan Frequency and Duration Frequency of Treatment 1-2x/week Duration of Treatment 10 weeks Plan of Care Start Date 01/19/21 Plan of Care End Date 03/30/21 Therapeutic Interventions Therapeutic Interventions Home Exercise Program,Joint Mobilizations,Manual Therapy, Neuromuscular Re-education, Patient/Caregiver Education, Self-Care/Home Management, Sensory Integration,Soft Tissue Mobilization,Taping, Therapeutic Activities, Therapeutic Exercises Modalities Cold Pack/Ice Massage,Electric Stimulation,Hot Packs Next Visit Focus/Plan Next Note Type Treatment Note Next Visit Plan Review initial HEP. Manual therapy for upper trapezius tone and to improve rotation. Progress cervical AROM for HEP as tolerated.
--- NOTE | 2021-01-19 16:13 | PT.OPPOC ---
Physical, Occupational & Speech Therapy At [facility] Current Diagnoses Spondylosis without myelopathy or radiculopathy, cervical region (01/19/21) Abnormal posture (01/19/21) Visit Care Team Role Provider Type Neyda Cohen PA-C Family Provider Non-Staff Primary Care Provider Specialty: Medical Address: [address] [place] [address], [id number] Email: Eusebia Villanueva MD Attending Provider Non-Staff Referring Provider Specialty: Rheumatology Address: [address] [place] [address], [address] Email: Plan Of Care PT-OP-T Assessment and Plan Start: 01/19/21 08:51 Freq: Status: Active Protocol: Document 01/19/21 11:15 AW (Rec: 01/22/21 16:12 AW [id number]) Physical Therapy Assessment Rehab Potential Rehabilitation Potential Excellent Evaluation Complexity Number of Personal Factors/Comorbidities 1-2 Number of Body Systems Impaired 1-2 Clinical Presentation at Evaluation Stable Impairments Impairments Functional Activities,Pain, Posture,ROM,Soft Tissue Mobility,Strength Other Concerns Barriers to Rehabilitation (-) depression (+) active lifestyle and positive association with movement Goals Four Impairment NDI Alf Goal (LTG) Pt will score 20% impaired or less on NDI to demonstrate improved function in daily activities. LTG Duration 10 weeks - 03/30/21 Three Impairment ROM Short Term Goal (STG) Pt will improve lateral flexion to 25 degrees bilaterally (from 18 deg R and 12 deg L) with 2/10 or less pain STG Duration 4 weeks - 02/16/21 Structural Welder Goal (LTG) Pt will improve cervical rotation to at least 45 degrees bilaterally with 2/10 or less pain for improved comfort and safety while driving. LTG Duration 10 weeks - 03/30/21 Two Impairment lacks HEP Short Term Goal (STG) Pt will be independent with HEP to support therapy services provided in clinic STG Duration 4 weeks - 02/16/21 Structural Welder Goal (LTG) Pt will perform HEP with good awareness and postural self- correction absent any external verbal cues. LTG Duration 10 weeks - 03/30/21 One Impairment posture Short Term Goal (STG) Pt will be educated in implications of posture for neck pain and ROM STG Duration 4 weeks - 02/16/21 Structural Welder Goal (LTG) Pt will set up her quilting workspace for optimal posture and improved biomechanics to allow her to quilt up to one hour at a time without increase in baseline pain. LTG Duration 10 weeks - 03/30/21 Assessment Summary Assessment Radha is a 71 yo woman seen in outpatient PT with complaints of neck/mid-back pain and decreased cervical range of motion - epecially in rotation. She denies all red flag signs. She presents with habitual postures which are likely predisposing for injury . Weak cervical and scapular stabilizers along with shortened pectoral fibers are perpetuating for her condition . She would benefit from skilled physical therapy to address these impairments in order to allow her to complete daily and recreational activities such as driving and quilting with reduced pain. Therapy will also aim to reduce the likelihood of further injury. Physical Therapy Plan Frequency and Duration Frequency of Treatment 1-2x/week Duration of Treatment 10 weeks Plan of Care Start Date 01/19/21 Plan of Care End Date 03/30/21 Therapeutic Interventions Therapeutic Interventions Home Exercise Program,Joint Mobilizations,Manual Therapy, Neuromuscular Re-education, Patient/Caregiver Education, Self-Care/Home Management, Sensory Integration,Soft Tissue Mobilization,Taping, Therapeutic Activities, Therapeutic Exercises Modalities Cold Pack/Ice Massage,Electric Stimulation,Hot Packs Next Visit Focus/Plan Next Note Type Treatment Note Next Visit Plan Review initial HEP. Manual therapy for upper trapezius tone and to improve rotation. Progress cervical AROM for HEP as tolerated. Plan of Care Dates Plan of Care Start Date 01/19/21 Plan of Care End Date 03/30/21 Electronically Signed by: Theresa Jaimes, PT 01/22/21 [id number] Please Sign and Return: I have reviewed this Plan of Care and certify that the skilled therapy services above are required to meet the patient?s needs. Physician Signature Date Printed Name and Credentials Clinical Instructor Signature Printed Name and Credentials
--- NOTE | 2021-01-24 17:14 | PT.OTN ---
Current Diagnoses Spondylosis without myelopathy or radiculopathy, cervical region (01/24/21) Abnormal posture (01/24/21) Physical Therapy Treatment Note PT-OP-A Visit Information Start: 01/19/21 08:51 Freq: Status: Active Protocol: Document 01/24/21 14:30 AW (Rec: 01/24/21 14:31 AW [id number]) Out-Patient Physical Therapy Visit Information Visit Information Visit Type Treatment Note Visit Start Time 13:45 Visit Stop Time 14:30 Total Visit Minutes 45 Visit Number 2 Number of BRAILLE TRANSCRIBER Visits 0 Evaluation Information Evaluation Date 01/19/21 Precautions Precautions osteopenia, orthopnea PT-OP-B Current Condition Start: 01/19/21 08:51 Freq: Status: Active Protocol: Document 01/19/21 11:15 AW (Rec: 01/19/21 08:56 AW [id number]) Current Condition History of Current Condition Onset Date chronic with acute symptoms last few months Current Complaints neck and mid back pain History of Current Condition Pt reports neck pain off and on for years but it usually goes away. It has not gone away over the past few months. In early 2020, she was sailing in [place] and spent a lot of time looking up at the sails one day. After that, her right arm went numb and she had trouble moving it. She was treated [facility] chiropractic and her arm improved. She now notices difficulty with neck rotation which she attributes to pain in her lower neck and upper traps. She has rheumatoid arthritis which mostly affects her hands. Prior Treatments and Tests - Accupuncture B knee pain - C-spine x-ray July 2020: Bones: No acute fractures or dislocations to the C7 level. The lateral masses of C1 appear intact on the odontoid view. No suspicious bony lesions. Multilevel disc space narrowing, and degenerative endplate changes, and uncovertebral joint and facet hypertrophy are seen that appear worst at the C4-5 and C5-6 levels. Soft tissues: No prevertebral soft tissue swelling. IMPRESSION: No acute osseous abnormality. Moderate multilevel spondylosis. Future Testing and Treatments Planned Rheumatology follow up on 02/01 Developmental History Developmental History GERD, rheumatoid arthritis, osteopenia Prior Functional Status Baseline Function- ADL's Independent Baseline Function- Mobility Independent Current Functional Impairments (Reported) Functional Limitations- Recreation/ Pt has neck pain with quilting Hobbies . PT-OP-C Subjective Start: 01/19/21 08:51 Freq: Status: Active Protocol: Document 01/24/21 14:30 AW (Rec: 01/24/21 14:31 AW [id number]) OP-PT Subjective Patient Comments Patient Comments Those exercises really seemed to help. Patient Reported Progress Improving PT-OP-F Manual Assessment Start: 01/19/21 08:51 Freq: Status: Active Protocol: Document 01/19/21 11:15 AW (Rec: 01/22/21 15:48 AW [id number]) Manual Assessments Soft Tissue Assessment Soft Tissue Mobility Assessment Moderate tone at bilateral cervical paraspinals and upper trapezius (R>L). PT-OP-H Neuro Start: 01/19/21 08:51 Freq: Status: Active Protocol: Document 01/19/21 11:15 AW (Rec: 01/22/21 15:48 AW [id number]) Sensation Evaluation Gross Sensation Gross Sensation WNL Deep Tendon Reflex & Clonus Assessment Deep Tendon Reflex Bilateral Bicep Deep Tendon Reflex 2+ Normal PT-OP-J Posture/Palpation/Skin Start: 01/19/21 08:51 Freq: Status: Active Protocol: Document 01/19/21 11:15 AW (Rec: 01/22/21 15:48 AW [id number]) Posture Evaluation Position Sitting Evaluation View Lateral Head/C-Spine Posture Excess Extension,Forward Head T-Spine Posture Increased Kyphosis Shoulder Posture (L) Rounded,(R) Rounded,(L) Forward,(R) Forward Scapula Posture (L) Protracted,(R) Protracted Arm Posture (L) Internally Rotated,(R) Internally Rotated PT-OP-K Range of Motion Start: 01/19/21 08:51 Freq: Status: Active Protocol: Document 01/19/21 11:15 AW (Rec: 01/22/21 15:48 AW [id number]) Cervical Spine Range of Motion Cervical Spine Active Degrees Testing Position Sitting Flexion 34 Extension 25 Rotation Left 25 Rotation Right 35 Lateral Flexion Left 12 Lateral Flexion Right 18 ROM Limitations Pain Shoulder Goniometric Range of Motion Shoulder left Shoulder ROM WFL Yes Flexion 155 Abduction 135 right Shoulder ROM WFL Yes Flexion 155 Abduction 130 PT-OP-L Special Tests Start: 01/19/21 08:51 Freq: Status: Active Protocol: Document 01/19/21 11:15 AW (Rec: 01/22/21 15:48 AW [id number]) Special Tests Cervical Spine Special Tests Traction Test Results vaguely relieving Spurling's Test Test Results negative bilaterally PT-OP-M Strength Start: 01/19/21 08:51 Freq: Status: Active Protocol: Document 01/19/21 11:15 AW (Rec: 01/22/21 15:48 AW [id number]) Cervical Spine Strength Cervical Spine Manual Muscle Testing Testing Position Sitting Flexion (C1-2) 4 Good Extension 4+ Good+ Rotation Left 4 Good Rotation Right 4+ Good+ Lateral Flexion Left (C3) 4 Good Lateral Flexion Right (C3) 4+ Good+ Scapula Strength Scapula Manual Muscle Testing bilateral Elevation (C4) 5 Normal Adduction 4 Good Abduction 4 Good Shoulder Strength Shoulder Manual Muscle Testing bilateral Flexion 4+ Good+ External Rotation 4 Good Internal Rotation 4+ Good+ Comments Abduction: R 4+/5; L 4/5 PT-OP-Q Treatments Start: 01/19/21 08:51 Freq: Status: Active Protocol: Document 01/24/21 14:30 AW (Rec: 01/24/21 14:31 AW [id number]) Therapeutic Exercises Supine Exercises pec stretch Supine Exercise Name pec stretch Side bilateral Equipment Used 1/2 foam roll Reps/Minutes 2 min Comments ~90 deg abduction; added to HEP Sidelying Exercises open book Sidelying Exercise Name open book Side bilateral Reps/Minutes x 10 Comments added to HEP Sitting Exercises pulleys Sitting Exercise Name pulleys Side bilateral Reps/Minutes 4 min Comments flexion, scaption, abd with active cervical rotation cervical retraction Sitting Exercise Name cervical retraction Reps/Minutes x10 Comments HEP review scapular retraction Sitting Exercise Name scapular retraction Side bilateral Reps/Minutes x10 Comments HEP review; performed in standing UT stretch Sitting Exercise Name UT stretch Side bilateral Resistance self, manual Reps/Minutes 30 SH x 4 Comments good independent performance Standing Exercises thoracic extension/trunk rotation Standing Exercise Name thoracic extension/trunk rotation Side bilateral Equipment Used pvc Reps/Minutes x 10 eac direction Comments focus on upper thoracic extension; added to HEP Manual Therapy Treatment Soft Tissue Mobilization UT, cervical paraspinals, lev scap, rhomboids Mobilization Type Strumming,Sustained Pressure Intensity/Depth Moderate Body Position Supine Comments with active rotation and contract/relax in rotation/ side bend Manual Traction Cervical Body Position Supine Reps/Duration 30 sec x 3 Comments relieving Self-Care/Home Management Treatment Education Patient Education Body Mechanics,Home Exercise Program,Posture Other Education Added open book and T/S rotation and supine pec stretch Activities Self-Care/Home Management Activities Discussed home quilting set up with advice to use towel roll at lumbar spine for support. Also recommended bringing sewing work closer as able and taking q 20 minute breaks for stretch and posture check. PT-OP-T Assessment and Plan Start: 01/19/21 08:51 Freq: Status: Active Protocol: Document 01/24/21 14:30 AW (Rec: 01/24/21 17:14 AW [id number]) Physical Therapy Assessment Other Concerns Barriers to Rehabilitation (-) depression (+) active lifestyle and positive association with movement Goals Four Impairment NDI Developmental Behavioral Physician Goal (LTG) Pt will score 20% impaired or less on NDI to demonstrate improved function in daily activities. LTG Duration 10 weeks - 03/30/21 Three Impairment ROM Short Term Goal (STG) Pt will improve lateral flexion to 25 degrees bilaterally (from 18 deg R and 12 deg L) with 2/10 or less pain STG Duration 4 weeks - 02/16/21 Developmental Behavioral Physician Goal (LTG) Pt will improve cervical rotation to at least 45 degrees bilaterally with 2/10 or less pain for improved comfort and safety while driving. LTG Duration 10 weeks - 03/30/21 Two Impairment lacks HEP Short Term Goal (STG) Pt will be independent with HEP to support therapy services provided in clinic STG Duration 4 weeks - 02/16/21 Developmental Behavioral Physician Goal (LTG) Pt will perform HEP with good awareness and postural self- correction absent any external verbal cues. LTG Duration 10 weeks - 03/30/21 One Impairment posture Short Term Goal (STG) Pt will be educated in implications of posture for neck pain and ROM STG Duration 4 weeks - 02/16/21 Custodial Goal (LTG) Pt will set up her quilting workspace for optimal posture and improved biomechanics to allow her to quilt up to one hour at a time without increase in baseline pain. LTG Duration 10 weeks - 03/30/21 Assessment Summary Assessment Radha reports improved postural awareness during daily activities and responded positively to HEP. She tolerated ther ex and manual therapy well today with more comfortable rotation after treatment. Physical Therapy Plan Frequency and Duration Frequency of Treatment 1-2x/week Duration of Treatment 10 weeks Plan of Care Start Date 01/19/21 Plan of Care End Date 03/30/21 Therapeutic Interventions Therapeutic Interventions Home Exercise Program,Joint Mobilizations,Manual Therapy, Neuromuscular Re-education, Patient/Caregiver Education, Self-Care/Home Management, Sensory Integration,Soft Tissue Mobilization,Taping, Therapeutic Activities, Therapeutic Exercises Modalities Cold Pack/Ice Massage,Electric Stimulation,Hot Packs Next Visit Focus/Plan Next Note Type Treatment Note Next Visit Plan Review HEP. Progress thoracic extension and scapular stabilization as tolerated
--- NOTE | 2021-01-26 12:14 | PT.OTN ---
Current Diagnoses Spondylosis without myelopathy or radiculopathy, cervical region (01/26/21) Abnormal posture (01/26/21) Physical Therapy Treatment Note PT-OP-A Visit Information Start: 01/19/21 08:51 Freq: Status: Active Protocol: Document 01/26/21 12:00 AW (Rec: 01/26/21 12:11 AW [id number]) Out-Patient Physical Therapy Visit Information Visit Information Visit Type Treatment Note Visit Start Time 11:16 Visit Stop Time 12:00 Total Visit Minutes 44 Visit Number 3 Number of POSTAL INSPECTOR Visits 0 Evaluation Information Evaluation Date 01/19/21 Precautions Precautions osteopenia, orthopnea PT-OP-B Current Condition Start: 01/19/21 08:51 Freq: Status: Active Protocol: Document 01/19/21 11:15 AW (Rec: 01/19/21 08:56 AW [id number]) Current Condition History of Current Condition Onset Date chronic with acute symptoms last few months Current Complaints neck and mid back pain History of Current Condition Pt reports neck pain off and on for years but it usually goes away. It has not gone away over the past few months. In early 2020, she was sailing in [place] and spent a lot of time looking up at the sails one day. After that, her right arm went numb and she had trouble moving it. She was treated [facility] chiropractic and her arm improved. She now notices difficulty with neck rotation which she attributes to pain in her lower neck and upper traps. She has rheumatoid arthritis which mostly affects her hands. Prior Treatments and Tests - Accupuncture B knee pain - C-spine x-ray July 2020: Bones: No acute fractures or dislocations to the C7 level. The lateral masses of C1 appear intact on the odontoid view. No suspicious bony lesions. Multilevel disc space narrowing, and degenerative endplate changes, and uncovertebral joint and facet hypertrophy are seen that appear worst at the C4-5 and C5-6 levels. Soft tissues: No prevertebral soft tissue swelling. IMPRESSION: No acute osseous abnormality. Moderate multilevel spondylosis. Future Testing and Treatments Planned Rheumatology follow up on 02/01 Developmental History Developmental History GERD, rheumatoid arthritis, osteopenia Prior Functional Status Baseline Function- ADL's Independent Baseline Function- Mobility Independent Current Functional Impairments (Reported) Functional Limitations- Recreation/ Pt has neck pain with quilting Hobbies . PT-OP-C Subjective Start: 01/19/21 08:51 Freq: Status: Active Protocol: Document 01/26/21 12:00 AW (Rec: 01/26/21 12:11 AW [id number]) OP-PT Subjective Patient Comments Patient Comments I'm actually feeling pretty good and I'm more aware of my posture while walking my dog. Patient Reported Progress Improving PT-OP-F Manual Assessment Start: 01/19/21 08:51 Freq: Status: Active Protocol: Document 01/19/21 11:15 AW (Rec: 01/22/21 15:48 AW [id number]) Manual Assessments Soft Tissue Assessment Soft Tissue Mobility Assessment Moderate tone at bilateral cervical paraspinals and upper trapezius (R>L). PT-OP-H Neuro Start: 01/19/21 08:51 Freq: Status: Active Protocol: Document 01/19/21 11:15 AW (Rec: 01/22/21 15:48 AW [id number]) Sensation Evaluation Gross Sensation Gross Sensation WNL Deep Tendon Reflex & Clonus Assessment Deep Tendon Reflex Bilateral Bicep Deep Tendon Reflex 2+ Normal PT-OP-J Posture/Palpation/Skin Start: 01/19/21 08:51 Freq: Status: Active Protocol: Document 01/19/21 11:15 AW (Rec: 01/22/21 15:48 AW [id number]) Posture Evaluation Position Sitting Evaluation View Lateral Head/C-Spine Posture Excess Extension,Forward Head T-Spine Posture Increased Kyphosis Shoulder Posture (L) Rounded,(R) Rounded,(L) Forward,(R) Forward Scapula Posture (L) Protracted,(R) Protracted Arm Posture (L) Internally Rotated,(R) Internally Rotated PT-OP-K Range of Motion Start: 01/19/21 08:51 Freq: Status: Active Protocol: Document 01/19/21 11:15 AW (Rec: 01/22/21 15:48 AW [id number]) Cervical Spine Range of Motion Cervical Spine Active Degrees Testing Position Sitting Flexion 34 Extension 25 Rotation Left 25 Rotation Right 35 Lateral Flexion Left 12 Lateral Flexion Right 18 ROM Limitations Pain Shoulder Goniometric Range of Motion Shoulder left Shoulder ROM WFL Yes Flexion 155 Abduction 135 right Shoulder ROM WFL Yes Flexion 155 Abduction 130 PT-OP-L Special Tests Start: 01/19/21 08:51 Freq: Status: Active Protocol: Document 01/19/21 11:15 AW (Rec: 01/22/21 15:48 AW [id number]) Special Tests Cervical Spine Special Tests Traction Test Results vaguely relieving Spurling's Test Test Results negative bilaterally PT-OP-M Strength Start: 01/19/21 08:51 Freq: Status: Active Protocol: Document 01/19/21 11:15 AW (Rec: 01/22/21 15:48 AW [id number]) Cervical Spine Strength Cervical Spine Manual Muscle Testing Testing Position Sitting Flexion (C1-2) 4 Good Extension 4+ Good+ Rotation Left 4 Good Rotation Right 4+ Good+ Lateral Flexion Left (C3) 4 Good Lateral Flexion Right (C3) 4+ Good+ Scapula Strength Scapula Manual Muscle Testing bilateral Elevation (C4) 5 Normal Adduction 4 Good Abduction 4 Good Shoulder Strength Shoulder Manual Muscle Testing bilateral Flexion 4+ Good+ External Rotation 4 Good Internal Rotation 4+ Good+ Comments Abduction: R 4+/5; L 4/5 PT-OP-Q Treatments Start: 01/19/21 08:51 Freq: Status: Active Protocol: Document 01/26/21 12:00 AW (Rec: 01/26/21 12:11 AW [id number]) Therapeutic Exercises Supine Exercises pec stretch Supine Exercise Name pec stretch Side bilateral Equipment Used 1/2 foam roll Reps/Minutes 2 min Comments ~90 deg abduction; oskar shape [place] Sitting Exercises cervical AROM Sitting Exercise Name rotation, lateral flexion Comments good independent set up and performance pulleys Sitting Exercise Name pulleys Side bilateral Reps/Minutes 4 min Comments flexion, scaption, abd with active cervical rotation Standing Exercises paloff press Standing Exercise Name paloff press Side bilateral Resistance level 1 Equipment Used TB Reps/Minutes x10 GH extension Standing Exercise Name GH extension Side bilateral Resistance level 1 Equipment Used TB Reps/Minutes 2x15 Comments focus cervical/scap retraction resisted rows Standing Exercise Name resisted rows Side bilateral Resistance level 1 Equipment Used TB Reps/Minutes 2x15 Comments focus cervical/scap retraction isometric cervical retraction Standing Exercise Name iso retraction Equipment Used small ball Reps/Minutes 2x15 thoracic extension/trunk rotation Standing Exercise Name thoracic extension/trunk rotation Side bilateral Equipment Used pvc Reps/Minutes x 10 eac direction Comments focus on upper thoracic extension; added to HEP Other Exercises cat cow Comments on fists due to hand pain Self-Care/Home Management Treatment Education Patient Education Body Mechanics,Home Exercise Program,Posture Other Education Updated HEP scanned to EMR PT-OP-T Assessment and Plan Start: 01/19/21 08:51 Freq: Status: Active Protocol: Document 01/26/21 12:00 AW (Rec: 01/26/21 12:14 AW [email or web address]) Physical Therapy Assessment Other Concerns Barriers to Rehabilitation (-) depression (+) active lifestyle and positive association with movement Goals Four Impairment NDI Correction Goal (LTG) Pt will score 20% impaired or less on NDI to demonstrate improved function in daily activities. LTG Duration 10 weeks - 03/30/21 Three Impairment ROM Short Term Goal (STG) Pt will improve lateral flexion to 25 degrees bilaterally (from 18 deg R and 12 deg L) with 2/10 or less pain STG Duration 4 weeks - 02/16/21 Correction Goal (LTG) Pt will improve cervical rotation to at least 45 degrees bilaterally with 2/10 or less pain for improved comfort and safety while driving. LTG Duration 10 weeks - 03/30/21 Two Impairment lacks HEP Short Term Goal (STG) Pt will be independent with HEP to support therapy services provided in clinic STG Duration 4 weeks - 02/16/21 Correction Goal (LTG) Pt will perform HEP with good awareness and postural self- correction absent any external verbal cues. LTG Duration 10 weeks - 03/30/21 One Impairment posture Short Term Goal (STG) Pt will be educated in implications of posture for neck pain and ROM STG Duration 4 weeks - 02/16/21 Railway Station Manager Goal (LTG) Pt will set up her quilting workspace for optimal posture and improved biomechanics to allow her to quilt up to one hour at a time without increase in baseline pain. LTG Duration 10 weeks - 03/30/21 Assessment Summary Assessment Pt demonstrates improved postural awareness without verbal cues and is growing in independent HEP performance. Discussed re-visiting next week and evaluating for possible discharge at that time. Physical Therapy Plan Frequency and Duration Frequency of Treatment 1-2x/week Duration of Treatment 10 weeks Plan of Care Start Date 01/19/21 Plan of Care End Date 03/30/21 Therapeutic Interventions Therapeutic Interventions Home Exercise Program,Joint Mobilizations,Manual Therapy, Neuromuscular Re-education, Patient/Caregiver Education, Self-Care/Home Management, Sensory Integration,Soft Tissue Mobilization,Taping, Therapeutic Activities, Therapeutic Exercises Modalities Cold Pack/Ice Massage,Electric Stimulation,Hot Packs Next Visit Focus/Plan Next Note Type Treatment Note Next Visit Plan Consolidate HEP for possible discharge
--- NOTE | 2021-01-31 14:31 | PT.OTN ---
Current Diagnoses Spondylosis without myelopathy or radiculopathy, cervical region (01/31/21) Abnormal posture (01/31/21) Physical Therapy Treatment Note PT-OP-A Visit Information Start: 01/19/21 08:51 Freq: Status: Active Protocol: Document 01/31/21 14:24 AW (Rec: 01/31/21 14:27 AW [id number]) Out-Patient Physical Therapy Visit Information Visit Information Visit Type Treatment Note Visit Start Time 13:45 Visit Stop Time 14:24 Total Visit Minutes 39 Visit Number 4 Number of QUALITY ASSURANCE CONSULTANT Visits 0 Evaluation Information Evaluation Date 01/19/21 Precautions Precautions osteopenia, orthopnea PT-OP-B Current Condition Start: 01/19/21 08:51 Freq: Status: Active Protocol: Document 01/19/21 11:15 AW (Rec: 01/19/21 08:56 AW [id number]) Current Condition History of Current Condition Onset Date chronic with acute symptoms last few months Current Complaints neck and mid back pain History of Current Condition Pt reports neck pain off and on for years but it usually goes away. It has not gone away over the past few months. In early 2020, she was sailing in [place] and spent a lot of time looking up at the sails one day. After that, her right arm went numb and she had trouble moving it. She was treated [facility] and her arm improved. She now notices difficulty with neck rotation which she attributes to pain in her lower neck and upper traps. She has rheumatoid arthritis which mostly affects her hands. Prior Treatments and Tests - Accupuncture B knee pain - C-spine x-ray July 2020: Bones: No acute fractures or dislocations to the C7 level. The lateral masses of C1 appear intact on the odontoid view. No suspicious bony lesions. Multilevel disc space narrowing, and degenerative endplate changes, and uncovertebral joint and facet hypertrophy are seen that appear worst at the C4-5 and C5-6 levels. Soft tissues: No prevertebral soft tissue swelling. IMPRESSION: No acute osseous abnormality. Moderate multilevel spondylosis. Future Testing and Treatments Planned Rheumatology follow up on 02/01 Developmental History Developmental History GERD, rheumatoid arthritis, osteopenia Prior Functional Status Baseline Function- ADL's Independent Baseline Function- Mobility Independent Current Functional Impairments (Reported) Functional Limitations- Recreation/ Pt has neck pain with quilting Hobbies . PT-OP-C Subjective Start: 01/19/21 08:51 Freq: Status: Active Protocol: Document 01/31/21 14:24 AW (Rec: 01/31/21 14:27 AW [id number]) OP-PT Subjective Patient Comments Patient Comments I feel pretty good during the day. Sometimes sore at night but better after I do my exercise. I have been sleeping better without pain interruptions. Patient Reported Progress Improving PT-OP-F Manual Assessment Start: 01/19/21 08:51 Freq: Status: Active Protocol: Document 01/19/21 11:15 AW (Rec: 01/22/21 15:48 AW [id number]) Manual Assessments Soft Tissue Assessment Soft Tissue Mobility Assessment Moderate tone at bilateral cervical paraspinals and upper trapezius (R>L). PT-OP-H Neuro Start: 01/19/21 08:51 Freq: Status: Active Protocol: Document 01/19/21 11:15 AW (Rec: 01/22/21 15:48 AW [id number]) Sensation Evaluation Gross Sensation Gross Sensation WNL Deep Tendon Reflex & Clonus Assessment Deep Tendon Reflex Bilateral Bicep Deep Tendon Reflex 2+ Normal PT-OP-J Posture/Palpation/Skin Start: 01/19/21 08:51 Freq: Status: Active Protocol: Document 01/19/21 11:15 AW (Rec: 01/22/21 15:48 AW [id number]) Posture Evaluation Position Sitting Evaluation View Lateral Head/C-Spine Posture Excess Extension,Forward Head T-Spine Posture Increased Kyphosis Shoulder Posture (L) Rounded,(R) Rounded,(L) Forward,(R) Forward Scapula Posture (L) Protracted,(R) Protracted Arm Posture (L) Internally Rotated,(R) Internally Rotated PT-OP-K Range of Motion Start: 01/19/21 08:51 Freq: Status: Active Protocol: Document 01/19/21 11:15 AW (Rec: 01/22/21 15:48 AW [id number]) Cervical Spine Range of Motion Cervical Spine Active Degrees Testing Position Sitting Flexion 34 Extension 25 Rotation Left 25 Rotation Right 35 Lateral Flexion Left 12 Lateral Flexion Right 18 ROM Limitations Pain Shoulder Goniometric Range of Motion Shoulder left Shoulder ROM WFL Yes Flexion 155 Abduction 135 right Shoulder ROM WFL Yes Flexion 155 Abduction 130 PT-OP-L Special Tests Start: 01/19/21 08:51 Freq: Status: Active Protocol: Document 01/19/21 11:15 AW (Rec: 01/22/21 15:48 AW [id number]) Special Tests Cervical Spine Special Tests Traction Test Results vaguely relieving Spurling's Test Test Results negative bilaterally PT-OP-M Strength Start: 01/19/21 08:51 Freq: Status: Active Protocol: Document 01/19/21 11:15 AW (Rec: 01/22/21 15:48 AW [id number]) Cervical Spine Strength Cervical Spine Manual Muscle Testing Testing Position Sitting Flexion (C1-2) 4 Good Extension 4+ Good+ Rotation Left 4 Good Rotation Right 4+ Good+ Lateral Flexion Left (C3) 4 Good Lateral Flexion Right (C3) 4+ Good+ Scapula Strength Scapula Manual Muscle Testing bilateral Elevation (C4) 5 Normal Adduction 4 Good Abduction 4 Good Shoulder Strength Shoulder Manual Muscle Testing bilateral Flexion 4+ Good+ External Rotation 4 Good Internal Rotation 4+ Good+ Comments Abduction: R 4+/5; L 4/5 PT-OP-Q Treatments Start: 01/19/21 08:51 Freq: Status: Active Protocol: Document 01/31/21 14:24 AW (Rec: 01/31/21 14:27 AW [id number]) Therapeutic Exercises Sitting Exercises pulleys Sitting Exercise Name pulleys Side bilateral Reps/Minutes 4 min Comments flexion, scaption, abd with active cervical rotation UT stretch Sitting Exercise Name UT stretch Side bilateral Resistance self, manual Reps/Minutes 30 SH x 4 Comments good independent performance Standing Exercises wall push up Standing Exercise Name wall push up Equipment Used feet 18 from wall Comments hard on right wrist; dc'ed resisted GH ER Standing Exercise Name resisted GH ER Side bilateral Resistance level 1 Equipment Used TB Reps/Minutes x15 Comments cued scap retraction paloff press Standing Exercise Name paloff press Side bilateral Resistance level 2 Equipment Used TB Reps/Minutes x10 Comments added GH flexion GH extension Standing Exercise Name GH extension Side bilateral Resistance level 2 Equipment Used TB Reps/Minutes 2x15 Comments focus cervical/scap retraction resisted rows Standing Exercise Name resisted rows Side bilateral Resistance level 2 Equipment Used TB Reps/Minutes 2x15 Comments focus cervical/scap retraction thoracic extension/trunk rotation Standing Exercise Name thoracic extension/trunk rotation Side bilateral Equipment Used pvc Reps/Minutes x 10 eac direction Comments focus on upper thoracic extension; added to HEP Other Exercises modified plank Other Exercise Name modified plank Equipment Used high table on forearms Comments cued cervical neutral ball T and Y Other Exercise Name ball T and Y Equipment Used 55 cm ball Reps/Minutes x6 each position with 5SH Comments cued cervical neutral Self-Care/Home Management Treatment Education Patient Education Body Mechanics,Home Exercise Program,Posture Other Education Reviewed HEP for independent performance PT-OP-T Assessment and Plan Start: 01/19/21 08:51 Freq: Status: Active Protocol: Document 01/31/21 14:24 AW (Rec: 01/31/21 14:30 AW [id number]) Physical Therapy Assessment Other Concerns Barriers to Rehabilitation (-) depression (+) active lifestyle and positive association with movement Goals Four Impairment NDI Loan And Credit Manager Goal (LTG) Pt will score 20% impaired or less on NDI to demonstrate improved function in daily activities. LTG Duration 10 weeks - 03/30/21 Three Impairment ROM Short Term Goal (STG) Pt will improve lateral flexion to 25 degrees bilaterally (from 18 deg R and 12 deg L) with 2/10 or less pain STG Duration 4 weeks - 02/16/21 Custodial Goal (LTG) Pt will improve cervical rotation to at least 45 degrees bilaterally with 2/10 or less pain for improved comfort and safety while driving. 01/31/21 ACHIEVED LTG Duration 10 weeks - 03/30/21 Two Impairment lacks HEP Short Term Goal (STG) Pt will be independent with HEP to support therapy services provided in clinic 01/31/21 ACHIEVED STG Duration 4 weeks - 02/16/21 Loan And Credit Manager Goal (LTG) Pt will perform HEP with good awareness and postural self- correction absent any external verbal cues. LTG Duration PROGRESSING One Impairment posture Short Term Goal (STG) Pt will be educated in implications of posture for neck pain and ROM 01/31/21 ACHIEVED STG Duration 4 weeks - 02/16/21 Loan And Credit Manager Goal (LTG) Pt will set up her quilting workspace for optimal posture and improved biomechanics to allow her to quilt up to one hour at a time without increase in baseline pain. LTG Duration 10 weeks - 03/30/21 Assessment Summary Assessment Pt demonstrates independent HEP performance. Treatment today focused on consolidating HEP and adding increased challenge. Physical Therapy Plan Frequency and Duration Frequency of Treatment 1-2x/week Duration of Treatment 10 weeks Plan of Care Start Date 01/19/21 Plan of Care End Date 03/30/21 Therapeutic Interventions Therapeutic Interventions Home Exercise Program,Joint Mobilizations,Manual Therapy, Neuromuscular Re-education, Patient/Caregiver Education, Self-Care/Home Management, Sensory Integration,Soft Tissue Mobilization,Taping, Therapeutic Activities, Therapeutic Exercises Modalities Cold Pack/Ice Massage,Electric Stimulation,Hot Packs Discharge Physical Therapy Discharge Reasons Goals Met Discharge Comments Pt is appropriate for discharge to [facility].
== END 2021-02-01 08:15 | disposition home or self-care (01) ==
LOC: PHYS 13:45
PROVIDERS: Family Provider Physician Assistant; PCP Physician Assistant; Referring Provider Internal Medicine Rheumatology; Visit Provider Internal Medicine Rheumatology
DX: M47.812 Spondylosis without myelopathy or radiculopathy, cervical region (principal); R29.3 Abnormal posture
CPT/HCPCS: 97110; 97140; 97161

== ENCOUNTER → 2021-02-13 07:37 | Outpatient (CLI) | payer MEDICARE, SELFPAY ==
[2021-02-13 09:56] LABS: Add Manual Diff / Slide Review NO; Basophils Absolute Auto 0 /uL (0-100); Basophils Percent Auto 0.7 % (0-2); Eosinophils Absolute Auto 300 /uL (0-450); Eosinophils Percent Auto 5.4 % (2-4); Hematocrit 37.6 % (36-46); Hemoglobin 12.5 g/dL (12.0-16.0); Lymphocytes Absolute Auto 1800 /uL (1100-4500); Lymphocytes Percent Auto 33.9 % (25-40); Mean Corpuscular HGB Conc 33.3 % (30-36); Mean Corpuscular Hemoglobin 31.3 PG (26-34); Mean Corpuscular Volume 93.9 fL (80-100); Monocytes Absolute Auto 400 /uL (0-900); Monocytes Percent Auto 7.9 % (3-14); Neutrophils Absolute Auto 2800 /uL (1500-7000); Neutrophils Percent Auto 52.1 % (50-75); Platelet Count 174 X10^3/uL (150-400); Red Blood Cell Count 4.01 X10^6/uL (4.0-5.2); Red Cell Distribution Width 12.8 % (11.6-14.8); White Blood Cell Count 5.4 X10^3/uL (4.5-11.0)
[2021-02-13 11:43] LABS: Alanine Aminotransferase 32 IU/L (<35); Albumin 4.2 g/dL (3.5-5.0); Albumin Globulin Ratio 1.4 (1.0-2.8); Alkaline Phosphatase 80 U/L (38-126); Aspartate Aminotransferase 40 IU/L (14-36); BUN Creatinine Ratio 32.9 (6-22); Bilirubin Total 0.4 mg/dL (0.2-1.3); Blood Urea Nitrogen 23 mg/dL (7-17); Calcium 9.8 mg/dL (8.4-10.2); Carbon Dioxide 29 mmol/L (22-32); Chloride 104 mmol/L (98-107); Estimated Glomerular Filt Rate > 60.0 mL/min (>60); Glucose 84 mg/dL (80-110); HEMOLYSIS < 15 (0-50); Potassium 4.8 mmol/L (3.4-5.1); Sodium 137 mmol/L (137-145); Total Protein 7.2 g/dL (6.3-8.2)
== END ==
PROVIDERS: Family Provider Physician Assistant; PCP Physician Assistant; Referring Provider Internal Medicine Rheumatology; Visit Provider Internal Medicine Rheumatology
DX: Z79.899 Other long term (current) drug therapy (principal); M06.09 Rheumatoid arthritis without rheumatoid factor, multiple sites
CPT/HCPCS: 36415; 80053; 85025

== ENCOUNTER → 2021-02-18 10:03 | Outpatient (CLI) | payer MEDICARE, SELFPAY ==
[2021-02-18 13:28] LABS: COVID19 -Nasal RAPID Negative (Negative)
== END ==
PROVIDERS: Family Provider Physician Assistant; PCP Physician Assistant; Visit Provider Nurse Practitioner
DX: Z01.812 Encounter for preprocedural laboratory examination (principal); Z20.822 Contact with and (suspected) exposure to COVID-19
CPT/HCPCS: 87635; C9803

== ENCOUNTER 2021-02-21 07:57 | Day surgery (SDC) | payer MEDICARE, SELFPAY ==
[2021-02-21 08:49] VITALS: BP 103/69; PULSE 69; RESP 14; TEMP 37.3; O2SAT 99; BMI 26.2
[2021-02-21] MEDS: PROPARACAINE 0.5% OPHTH SOL 2 DROPS EYE-OP (08:58)
[2021-02-21] MEDS: CATARACT EYE COMPOUND (10 DROPS/SYRINGE) 3 DROPS EYE-OP (08:58)
--- NOTE | 2021-02-21 10:00 | PM.PREOP ---
Pre-operative Note Interval Note History & Physical reviewed/Exam performed by Physician: Yes Changes to H&P: No
--- NOTE | 2021-02-21 10:00 | PM.OP.1 ---
Operative Date/Time/Diagnoses Pre-op diagnosis: Nuclear cataract right eye Procedure & Clinicians Procedure: Cataract Surgery Same procedure as scheduled: Yes Surgeon: Justin Tate Anesthesia Type: MAC +/- and Sedation Operative Notes Procedure in detail: Patient brought to the operating suite. Tetracaine drops placed in the right eye.Marking instrument was used to michela the vertical and horizontal meridians. Patient was prepped and draped in sterile manner. Wire lid speculum was placed in the eye. Betadine drops were placed on the eye. This was irrigated. Lidocaine jelly was placed on the eye. A paracentesis port was created with a side-port blade. 0.1 mL 1% preservative free lidocaine was injected into the anterior chamber. The anterior chamber was deepened with viscoelastic. 2.6 mm keratome was used to create a temporal clear corneal incision. Cystotome and Utrata forceps were used to create continuous tear capsulorrhexis. Balanced salt solution was used to hydro dissect the nucleus. The phacoemulsification handpiece was inserted and the nucleus was removed using the stop and chop technique. The irrigation aspiration handpiece was inserted and the remaining cortex was removed. Anterior chamber was deepened with viscoelastic. An Aguirre [id number] intraocular lens with a power of 24.5 was injected into the capsular bag. Irrigation aspiration handpiece was inserted and the remaining viscoelastic was removed. The lens was rotated to the 180 degree meridian. Incision was hydrated with balanced salt solution and found to be leak free with pressure with Weck-Xuan sponges. 0.1 mL Vigamox injected anterior chamber. 0.3 mL Kenalog 10 mg was injected subconjunctivally. Lid speculum was removed. The patient left the operating room in excellent condition. Complications: none Post-operative Condition: stable Disposition: same day surgery
[2021-02-21] MEDS: PHENYLEPHRINE/LIDOCAINE VIAL (OR) 0.2 ML EYE-OP (10:16)
[2021-02-21] MEDS: MOXIFLOXACIN INJ 4 MG/0.8 ML VIAL 0.5 MG EYE-OP (10:16)
[2021-02-21] MEDS: HYALURONATE SODIUM 30 MG-10 MG/ML SYRINGES 1 BOX INTRAOCULA (10:16)
[2021-02-21] MEDS: TETRACAINE 0.5% OPHTH DROPS 4 ML 2 DROPS EYE-OP (10:17)
[2021-02-21] MEDS: TRIAMCINOLONE 50 MG/5 ML VIAL INJ (10:17)
[2021-02-21] MEDS: BALANCED SALT IRRIG SOLN NO.2 500 ML, EPINEPHrine 1 MG IRR (10:17)
[2021-02-21] MEDS: LIDOCAINE 2% (GLYDO) 6 ML GEL TOP (10:17)
[2021-02-21 10:33] VITALS: BP 115/77; PULSE 66; RESP 14; TEMP 36.6; O2SAT 97
[2021-02-21 10:50] VITALS: BP 115/76; PULSE 73; RESP 12; TEMP 36.2; O2SAT 97
== END 2021-02-21 10:56 | disposition home or self-care (01) ==
PROVIDERS: Family Provider Physician Assistant; PCP Physician Assistant; Referring Provider Ophthalmology; Visit Provider Ophthalmology
PROC: (CPT 66984; principal; 2021-02-21 09:45)
DX: H25.11 Age-related nuclear cataract, right eye (principal); M06.9 Rheumatoid arthritis, unspecified; K21.9 Gastro-esophageal reflux disease without esophagitis
CPT/HCPCS: 66984; J0171; J2250; J3301; V2787

== ENCOUNTER → 2021-03-06 08:00 | Outpatient (CLI) | payer MEDICARE, SELFPAY ==
[2021-03-06 08:47] LABS: Add Manual Diff / Slide Review NO; Basophils Absolute Auto 100 /uL (0-100); Basophils Percent Auto 1.2 % (0-2); Eosinophils Absolute Auto 400 /uL (0-450); Eosinophils Percent Auto 7.8 % (2-4); Hematocrit 37.6 % (36-46); Hemoglobin 12.6 g/dL (12.0-16.0); Lymphocytes Absolute Auto 1800 /uL (1100-4500); Lymphocytes Percent Auto 37.8 % (25-40); Mean Corpuscular HGB Conc 33.6 % (30-36); Mean Corpuscular Hemoglobin 31.8 PG (26-34); Mean Corpuscular Volume 94.9 fL (80-100); Monocytes Absolute Auto 400 /uL (0-900); Monocytes Percent Auto 8.1 % (3-14); Neutrophils Absolute Auto 2100 /uL (1500-7000); Neutrophils Percent Auto 45.1 % (50-75); Platelet Count 176 X10^3/uL (150-400); Red Blood Cell Count 3.97 X10^6/uL (4.0-5.2); Red Cell Distribution Width 12.5 % (11.6-14.8); White Blood Cell Count 4.7 X10^3/uL (4.5-11.0)
[2021-03-06 09:02] LABS: Alanine Aminotransferase 23 IU/L (<35); Albumin 4.1 g/dL (3.5-5.0); Albumin Globulin Ratio 1.5 (1.0-2.8); Alkaline Phosphatase 82 U/L (38-126); Aspartate Aminotransferase 35 IU/L (14-36); BUN Creatinine Ratio 21.1 (6-22); Bilirubin Total 0.4 mg/dL (0.2-1.3); Blood Urea Nitrogen 16 mg/dL (7-17); Calcium 9.6 mg/dL (8.4-10.2); Carbon Dioxide 30 mmol/L (22-32); Chloride 103 mmol/L (98-107); Estimated Glomerular Filt Rate > 60.0 mL/min (>60); Globulin 2.8 g/dL (1.7-4.1); Glucose 91 mg/dL (80-110); HEMOLYSIS < 15 (0-50); Potassium 4.5 mmol/L (3.4-5.1); Sodium 137 mmol/L (137-145); Total Protein 6.9 g/dL (6.3-8.2)
[2021-03-06 12:26] LABS: COVID19 -Nasal RAPID Negative (Negative)
== END ==
PROVIDERS: Nurse Practitioner Family; Family Provider Physician Assistant; PCP Physician Assistant; Referring Provider Internal Medicine Rheumatology; Visit Provider Internal Medicine Rheumatology
DX: Z79.899 Other long term (current) drug therapy (principal); M06.09 Rheumatoid arthritis without rheumatoid factor, multiple sites; Z01.812 Encounter for preprocedural laboratory examination; Z20.822 Contact with and (suspected) exposure to COVID-19
CPT/HCPCS: 36415; 80053; 85025; 87635; C9803

== ENCOUNTER 2021-03-07 10:35 | Day surgery (SDC) | payer MEDICARE, SELFPAY ==
[2021-03-07] MEDS: PROPARACAINE 0.5% OPHTH SOL 2 DROPS EYE-OP (10:46)
[2021-03-07 10:47] VITALS: BP 119/81; PULSE 59; RESP 15; TEMP 36.4; O2SAT 99; BMI 26.1
[2021-03-07] MEDS: CATARACT EYE COMPOUND (10 DROPS/SYRINGE) 3 DROPS EYE-OP (10:47)
--- NOTE | 2021-03-07 12:09 | PM.PREOP ---
Pre-operative Note Interval Note History & Physical reviewed/Exam performed by Physician: Yes Changes to H&P: No
--- NOTE | 2021-03-07 12:10 | P.OP_ITS ---
Operative Date/Time/Diagnoses Pre-op diagnosis: Nuclear Cataract Left eye Post-op diagnosis: same Procedure & Clinicians Same procedure as scheduled: Yes Surgeon: Justin Tate Anesthesia Type: MAC +/- and Sedation Operative Notes Procedure in detail: Patient brought to the operating suite. Tetracaine drops placed in the left eye. Marking instrument was used to michela the vertical and horizontal meridians. Patient was prepped and draped in sterile manner. Wire lid speculum was placed in the eye. Marking instrument was used to michela the 170 degree meridian. Betadine drops were placed on the eye. This was irrigated. Lidocaine jelly was placed on the eye. A paracentesis port was created with a side-port blade. 0.1 mL 1% preservative free lidocaine was injected into the anterior chamber. The anterior chamber was deepened with viscoelastic. 2.6 mm keratome was used to create a temporal clear corneal incision. Cystotome and Utrata forceps were used to create continuous tear capsulorrhexis. Balanced salt solution was used to hydro dissect the nucleus. The phacoemulsification handpiece was inserted and the nucleus was removed using the stop and chop techn ique. The irrigation aspiration handpiece was inserted and the remaining cortex was removed. Anterior chamber was deepened with viscoelastic. An Aguirre [id number] intraocular lens with a power of 23.0 was injected into the capsular bag. Irrigation aspiration handpiece was inserted and the remaining viscoelastic was removed. The lens was rotated to the 170 degree meridian. Incision was hydrated with balanced salt solution and found to be leak free with pressure with Weck- Xuan sponges. 0.1 mL Vigamox injected anterior chamber. 0.3 mL Kenalog 10 mg was injected subconjunctivally. Lid speculum was removed. The patient left the operating room in excellent condition. Complications: none Post-operative Condition: stable Disposition: same day surgery
[2021-03-07] MEDS: HYALURONATE SODIUM 30 MG-10 MG/ML SYRINGES 1 BOX INTRAOCULA (12:30)
[2021-03-07] MEDS: MOXIFLOXACIN INJ 4 MG/0.8 ML VIAL 0.5 MG EYE-OP (12:30)
[2021-03-07] MEDS: PHENYLEPHRINE/LIDOCAINE VIAL (OR) 0.2 ML EYE-OP (12:30)
[2021-03-07] MEDS: LIDOCAINE 2% (GLYDO) 6 ML GEL TOP (12:30)
[2021-03-07] MEDS: BALANCED SALT IRRIG SOLN NO.2 500 ML, EPINEPHrine 1 MG IRR (12:31)
[2021-03-07] MEDS: TRIAMCINOLONE 50 MG/5 ML VIAL INJ (12:31)
[2021-03-07] MEDS: TETRACAINE 0.5% OPHTH DROPS 4 ML 2 DROPS EYE-OP (12:31)
[2021-03-07 12:56] VITALS: BP 109/65; PULSE 63; RESP 16; TEMP 36.4; O2SAT 98
== END 2021-03-07 12:58 | disposition home or self-care (01) ==
PROVIDERS: Family Provider Physician Assistant; PCP Physician Assistant; Referring Provider Ophthalmology; Visit Provider Ophthalmology
PROC: (CPT 66984; principal; 2021-03-07 12:15)
DX: H25.12 Age-related nuclear cataract, left eye (principal); K21.9 Gastro-esophageal reflux disease without esophagitis
CPT/HCPCS: 66984; J0171; J2250; J3010; J3301; V2787

== ENCOUNTER → 2021-03-24 07:25 | Outpatient (CLI) | payer MEDICARE, SELFPAY ==
[2021-03-24 08:24] LABS: Add Manual Diff / Slide Review NO; Basophils Absolute Auto 0 /uL (0-100); Eosinophils Absolute Auto 300 /uL (0-450); Hematocrit 37.8 % (36-46); Hemoglobin 12.6 g/dL (12.0-16.0); Lymphocytes Absolute Auto 1900 /uL (1100-4500); Lymphocytes Percent Auto 39.7 % (25-40); Mean Corpuscular HGB Conc 33.3 % (30-36); Mean Corpuscular Hemoglobin 31.7 PG (26-34); Mean Corpuscular Volume 95.1 fL (80-100); Monocytes Absolute Auto 400 /uL (0-900); Neutrophils Absolute Auto 2100 /uL (1500-7000); Neutrophils Percent Auto 44.3 % (50-75); Platelet Count 171 X10^3/uL (150-400); Red Blood Cell Count 3.97 X10^6/uL (4.0-5.2); Red Cell Distribution Width 13.2 % (11.6-14.8); White Blood Cell Count 4.8 X10^3/uL (4.5-11.0)
[2021-03-24 08:28] LABS: Alanine Aminotransferase 22 IU/L (<35); Albumin 4.3 g/dL (3.5-5.0); Albumin Globulin Ratio 1.7 (1.0-2.8); Alkaline Phosphatase 77 U/L (38-126); Aspartate Aminotransferase 31 IU/L (14-36); BUN Creatinine Ratio 23.6 (6-22); Bilirubin Total 0.5 mg/dL (0.2-1.3); Blood Urea Nitrogen 17 mg/dL (7-17); Calcium 9.9 mg/dL (8.4-10.2); Carbon Dioxide 34 mmol/L (22-32); Chloride 102 mmol/L (98-107); Estimated Glomerular Filt Rate > 60.0 mL/min (>60); Globulin 2.6 g/dL (1.7-4.1); Glucose 87 mg/dL (80-110); HEMOLYSIS < 15 (0-50); Potassium 4.4 mmol/L (3.4-5.1); Sodium 139 mmol/L (137-145); Total Protein 6.9 g/dL (6.3-8.2)
== END ==
PROVIDERS: Family Provider Physician Assistant; PCP Physician Assistant; Referring Provider Internal Medicine Rheumatology; Visit Provider Internal Medicine Rheumatology
DX: Z79.899 Other long term (current) drug therapy (principal); M06.09 Rheumatoid arthritis without rheumatoid factor, multiple sites
CPT/HCPCS: 36415; 80053; 85025

== ENCOUNTER → 2021-04-19 09:12 | Outpatient (CLI) | payer MEDICARE, SELFPAY ==
[2021-04-19 12:59] LABS: COVID-19 CEPHEID PCR (VTM/NP) Negative (Negative)
== END ==
PROVIDERS: Family Provider Physician Assistant; PCP Physician Assistant; Visit Provider Nurse Practitioner Family
DX: Z20.822 Contact with and (suspected) exposure to COVID-19 (principal)
CPT/HCPCS: C9803; U0003

== ENCOUNTER → 2021-05-04 17:00 | Outpatient (CLI) | payer MEDICARE, SELFPAY ==
--- NOTE | 2021-05-04 | DI.MG.S_ITS ---
BILATERAL DIGITAL SCREENING MAMMOGRAM 3D/2D WITH CAD: 05/04/2021 CLINICAL: Routine screening. Family history of breast cancer. Comparison is made to exams dated: 04/25/2020 mammogram, 10/27/2019 mammogram, 04/24/2019 mammogram, and 05/14/2018 mammogram - [facility]. There are scattered fibroglandular elements in both breasts. Current study was also evaluated with a Computer Aided Detection (CAD) system. There is a biopsy clip in the right breast. No significant masses, calcifications, or other findings are seen in either breast. There has been no significant interval change. IMPRESSION: NEGATIVE There is no mammographic evidence of malignancy. A 1 year screening mammogram is recommended. This exam was interpreted at Station ID: [id number]. NOTE: For mammograms, a report in lay terms will be sent to the patient. Approximately 15% of breast malignancies will not be visualized mammographically. In the management of a palpable breast mass, a negative mammogram must not discourage biopsy of a clinically suspicious lesion. Electronically Signed By: Jes may/eduar:05/05/2021 10:18:11 letter sent: Normal Exam ACR BI-RADS Category 1: Negative 3341F
== END ==
PROVIDERS: Family Provider Physician Assistant; PCP Physician Assistant; Referring Provider Physician Assistant; Visit Provider Physician Assistant
DX: Z12.31 Encounter for screening mammogram for malignant neoplasm of breast (principal); Z80.3 Family history of malignant neoplasm of breast
CPT/HCPCS: 77063; 77067

== ENCOUNTER → 2021-05-15 16:03 | Outpatient (CLI) | payer MEDICARE, SELFPAY ==
--- NOTE | 2021-05-15 | DI.RAD.S_ITS ---
PROCEDURE: XR CHEST 2V INDICATIONS: SHORT OF BREATH TECHNIQUE: 2 views of the chest were acquired. COMPARISON: [facility], CR, XR CHEST 2V, 08/27/2019, 12:27. FINDINGS: Surgical changes and devices: None. Lungs and pleura: Coarsened interstitial markings. Lungs are clear. No pleural effusions or pneumothorax. Mediastinum: Mediastinal contours are normal. Heart size is normal. Bones and chest wall: No suspicious bony abnormalities. Soft tissues appear unremarkable. IMPRESSION: No acute cardiopulmonary abnormality. Dictated by: John Anders M.D. on 05/15/2021 at 16:29 Approved by: John Anders M.D. on 05/15/2021 at 16:30
== END ==
PROVIDERS: Family Provider Physician Assistant; PCP Physician Assistant; Referring Provider Physician Assistant; Visit Provider Physician Assistant
DX: R06.02 Shortness of breath (principal)
CPT/HCPCS: 71046

== ENCOUNTER → 2021-05-16 16:07 | Outpatient (ROUT) | payer MEDICARE, SELFPAY ==
[2021-05-16 16:28] LABS: COVID19 -Nasal RAPID Negative (Negative)
== END ==
PROVIDERS: Family Provider Physician Assistant; PCP Physician Assistant; Visit Provider Internal Medicine
DX: Z20.822 Contact with and (suspected) exposure to COVID-19 (principal)
CPT/HCPCS: 87635

== ENCOUNTER → 2021-05-30 12:37 | Outpatient (CLI) | payer MEDICARE, SELFPAY ==
[2021-05-30 13:46] LABS: NT-proBNP (BNP-Adult 18+) 100 pg/mL (<125)
== END ==
PROVIDERS: Family Provider Physician Assistant; PCP Physician Assistant; Referring Provider Physician Assistant; Visit Provider Physician Assistant
DX: R06.02 Shortness of breath (principal)
CPT/HCPCS: 36415; 83880

== ENCOUNTER → 2021-06-02 15:10 | Outpatient (CLI) | payer MEDICARE, SELFPAY ==
--- NOTE | 2021-06-02 | DI.CT.S_ITS ---
PROCEDURE: CT CHEST WO CON INDICATIONS: Shortness of breath TECHNIQUE: Noncontrast 5 mm thick sections acquired from the pulmonary apices to the posterior costophrenic angles. 1 mm lung window, 5 mm thick coronal and sagittal and 7 mm axial MIP reformats were then acquired. For radiation dose reduction, the following was used: automated exposure control, adjustment of mA and/or kV according to patient size. COMPARISON: [facility], CT, PE STUDY (CTA CHEST), 06/20/2016, 15:58. FINDINGS: Image quality: Excellent. Lungs and pleura: Biapical pleural thickening/scarring. No suspicious pulmonary nodule or mass. No consolidation, pleural effusions or pneumothorax. Central and peripheral airways are patent and normal in caliber. Mediastinum: Heart size is normal. No pericardial effusion. No mediastinal adenopathy by size criteria. Thoracic aorta and central pulmonary arteries are normal in size. Mild calcified atheromatous change of the aorta. Esophagus is normal in caliber. Small hiatal hernia. Bones and chest wall: No suspicious bony lesions. No vertebral body compression fractures. No axillary or supraclavicular adenopathy by size criteria. Thyroid gland demonstrates homogeneous attenuation. Abdomen: Visualized upper abdominal solid organs and bowel loops appear normal in the absence of contrast. IMPRESSION: 1. No significant abnormality. Dictated by: John Anders M.D. on 06/02/2021 at 16:11 Approved by: John Anders M.D. on 06/02/2021 at 16:17
== END ==
PROVIDERS: Family Provider Physician Assistant; PCP Physician Assistant; Referring Provider Physician Assistant; Visit Provider Physician Assistant
DX: R06.02 Shortness of breath (principal)
CPT/HCPCS: 71250

== ENCOUNTER → 2021-07-03 08:22 | Outpatient (CLI) | payer MEDICARE, SELFPAY ==
--- NOTE | 2021-07-03 08:25 | DI.ECHO.S_ITS ---
[place] [facility]---------+ [facility] +---------+ : : [address] : : : : [id number] : : : : Phone: [phone]+ Echocardiogram Report + + :Name: ASHER RODRIGUEZ Study Date: 07/03/2021 Height: 65 in : :[facility] ReadingLocation: Weight: 160 lb : : Gender: Female BSA: 1.8 m2 : :: 1950 Age: 71 yrs BP: 120/84 mmHg: :Reason For Study: SHORTNESS OF BREATH : :Ordering Physician: CAMILA, : :ANDREW Performed By: Mariel Joyce : :Referring: GRETA GAR : + + Interpretation Summary Normal left ventricle size with ejection fraction 55-60%. Borderline dilated right ventricle with normal right ventricular systolic function. Mild aortic valve sclerosis. Procedure: A two-dimensional transthoracic echocardiogram with color flow and Doppler was performed. The study quality was technically adequate. There is no prior echocardiogram noted for this patient. The patient was in sinus rhythm with heart rates between 56-66 bpm during the exam. Left Ventricle: The left ventricle is normal in size and wall thickness. The ejection fraction is estimated to be 55-60%. There are no focal wall motion abnormalities. Diastolic parameters suggest probable normal left ventricular diastolic function and normal filling pressures. Right Ventricle: The right ventricle is borderline dilated. The right ventricular systolic function is normal. Atria: The left atrial size is normal. Right atrial size is normal. There is no Doppler evidence for an interatrial shunt. Mitral Valve: The mitral valve leaflets appear mildly thickened, but open well. The mitral valve leaflets appear to open well. There is trace mitral regurgitation. Aortic Valve: The aortic valve is trileaflet. The aortic valve opens well. There is mild aortic valve sclerosis. There is no aortic valve stenosis. No aortic regurgitation is present. Tricuspid Valve: The tricuspid valve is normal in structure and function. There is a trace or physiologic amount of tricuspid regurgitation. Pulmonary artery pressures cannot be estimated because of the lack of a measurable TR jet velocity. Pulmonic Valve: The pulmonic valve leaflets are thin and pliable; valve motion is normal. There is trace pulmonic regurgitation. Great Vessels: The aortic root is normal size. The dimensions of the ascending aorta are normal. The IVC is of normal diameter and collapses greater than 50% with a sniff. This suggests a low right atrial pressure of 3 mm Hg. Pericardium/ Pleura There is no pericardial effusion. There is no pleural effusion. MMode/2D Measurements & Calculations LVIDd: 4.2 cm LVOT diam: 2.1 cm LVIDs: 2.6 cm Ao root diam: 2.9 cm FS: 37.9 % asc Aorta Diam: 3.3 cm IVSd: 0.89 cm Ao Arch Diam (Prox Trans): 2.4 cm LVPWd: 0.78 cm LV lipscomb. diameter/BSA (cm/m^2): 2.3 LV sys. diameter/BSA (cm/m^2): 1.5 LA A2 area: 18.3 cm2 RA long axis: 5.4 cm LA A4 area: 18.4 cm2 RA area: 18.3 cm2 LA length (vol): 4.8 cm RA vol: 53.1 ml LA vol: 59.6 ml RA : 29.5 ml/m2 LA vol index: 33.1 ml/m2 IVC diam: 1.1 cm RVD1 (basal): 4.1 cm TAPSE: 2.1 cm Doppler Measurements & Calculations Ao V2 max: 109.0 cm/sec LVOT Max King: 89.0 cm/sec Ao V2 mean: 77.3 cm/sec LV V1 max P.2 mmHg Ao max P.8 mmHg LV V1 VTI: 20.1 cm Ao mean P.7 mmHg JENNIFER(I,D): 2.8 cm2 Ao V2 VTI: 25.0 cm JENNIFER(V,D): 2.9 cm2 sev ratio: 0.81 JENNIFER indexed to BSA (cm^2/m^2): 1.6 MV E max king: 84.9 cm/sec PA V2 max: 74.5 cm/sec MV A max king: 71.0 cm/sec PA V2 mean: 47.1 cm/sec MV E/A: 1.2 PA mean P.1 mmHg Med Peak E' King: 10.6 cm/sec PA pr(Accel): 25.9 mmHg E/E' med: 8.0 Lat Peak E' King: 10.5 cm/sec E/E' lat: 8.1 E/e' average: 8.0 MV dec time: 0.18 sec SV(LVOT): 70.5 ml Electronically signed by: Kaylynn Quiroz on Reading Physician:07/03/2021 10:39 AM
== END ==
PROVIDERS: Family Provider Physician Assistant; PCP Physician Assistant; Referring Provider Physician Assistant; Visit Provider Physician Assistant
DX: I35.8 Other nonrheumatic aortic valve disorders (principal); R06.02 Shortness of breath
CPT/HCPCS: 93306

== ENCOUNTER → 2021-07-26 10:08 | Outpatient (CLI) | payer MEDICARE, SELFPAY ==
[2021-07-26 11:30] LABS: COVID19 - ADMIT (NP swab/PCR) Negative (Negative)
== END ==
PROVIDERS: Family Provider Physician Assistant; PCP Physician Assistant; Visit Provider Family Medicine Sleep Medicine
DX: Z20.822 Contact with and (suspected) exposure to COVID-19 (principal)
CPT/HCPCS: C9803; U0003; U0005

== ENCOUNTER → 2021-08-28 07:41 | Outpatient (CLI) | payer MEDICARE, SELFPAY ==
[2021-08-28 09:13] LABS: Cholesterol 227 mg/dL (140-199); HDL Cholesterol 62 mg/dL (40-60); LDL Cholesterol Calculated 153 mg/dL (<100); Triglycerides 60 mg/dL (35-150)
== END ==
PROVIDERS: Family Provider Physician Assistant; PCP Physician Assistant; Referring Provider Internal Medicine Cardiovascular Disease; Visit Provider Internal Medicine Cardiovascular Disease
DX: I25.10 Atherosclerotic heart disease of native coronary artery without angina pectoris (principal)
CPT/HCPCS: 36415; 80061

== ENCOUNTER → 2021-11-15 10:00 | Outpatient (CLI) | payer MEDICARE, SELFPAY ==
[2021-11-15 13:46] LABS: COVID-19 CEPHEID PCR (VTM/NP) Negative (Negative)
== END ==
PROVIDERS: Family Provider Physician Assistant; PCP Physician Assistant; Visit Provider Family Medicine Sleep Medicine
DX: Z20.822 Contact with and (suspected) exposure to COVID-19 (principal)
CPT/HCPCS: C9803; U0003; U0005

== ENCOUNTER → 2022-05-03 07:23 | Outpatient (CLI) | payer MEDICARE, SELFPAY ==
[2022-05-03 09:04] LABS: Add Manual Diff / Slide Review NO; Basophils Absolute Auto 0 /uL (0-100); Basophils Percent Auto 1.1 % (0-2); Eosinophils Absolute Auto 400 /uL (0-450); Eosinophils Percent Auto 9.1 % (2-4); Hematocrit 36.8 % (36-46); Hemoglobin 12.5 g/dL (12.0-16.0); Lymphocytes Absolute Auto 1700 /uL (1100-4500); Lymphocytes Percent Auto 38.8 % (25-40); Mean Corpuscular HGB Conc 33.9 % (30-36); Mean Corpuscular Hemoglobin 32.8 PG (26-34); Mean Corpuscular Volume 96.7 fL (80-100); Monocytes Absolute Auto 400 /uL (0-900); Monocytes Percent Auto 8.4 % (3-14); Neutrophils Absolute Auto 1900 /uL (1500-7000); Neutrophils Percent Auto 42.6 % (50-75); Platelet Count 176 X10^3/uL (150-400); Red Blood Cell Count 3.81 X10^6/uL (4.0-5.2); Red Cell Distribution Width 13.5 % (11.6-14.8); White Blood Cell Count 4.5 X10^3/uL (4.5-11.0)
[2022-05-03 15:27] LABS: Alanine Aminotransferase 22 IU/L (<35); Albumin 3.9 g/dL (3.5-5.0); Albumin Globulin Ratio 1.4 (1.0-2.8); Alkaline Phosphatase 76 U/L (38-126); Aspartate Aminotransferase 29 IU/L (14-36); BUN Creatinine Ratio 17.6 (6-22); Bilirubin Total 0.3 mg/dL (0.2-1.3); Blood Urea Nitrogen 13 mg/dL (7-17); Calcium 9.4 mg/dL (8.4-10.2); Carbon Dioxide 30 mmol/L (22-32); Chloride 103 mmol/L (98-107); Cholesterol 222 mg/dL (140-199); Estimated Glomerular Filt Rate > 60 mL/min (>60); Globulin 2.7 g/dL (1.7-4.1); Glucose 82 mg/dL (80-110); HDL Cholesterol 58 mg/dL (40-60); HEMOLYSIS < 15 (0-50); LDL Cholesterol Calculated 145 mg/dL (<100); Potassium 4.6 mmol/L (3.4-5.1); Sodium 141 mmol/L (137-145); Total Protein 6.6 g/dL (6.3-8.2); Triglycerides 93 mg/dL (35-150)
[2022-05-03 16:32] LABS: Folate > 20.0 ng/mL (2.76-20.0); Vitamin B12 883 pg/mL (239-931)
== END ==
PROVIDERS: Family Provider Physician Assistant; PCP Family Medicine; Referring Provider Family Medicine; Visit Provider Family Medicine
DX: E78.5 Hyperlipidemia, unspecified; G62.9 Polyneuropathy, unspecified; J18.9 Pneumonia, unspecified organism; M19.90 Unspecified osteoarthritis, unspecified site; L27.0 Generalized skin eruption due to drugs and medicaments taken internally; E56.9 Vitamin deficiency, unspecified
CPT/HCPCS: 36415; 80053; 80061; 82607; 82746; 85025

== ENCOUNTER → 2022-06-01 08:04 | Outpatient (CLI) | payer MEDICARE, SELFPAY ==
--- NOTE | 2022-06-01 08:06 | DI.MG.S_ITS ---
BILATERAL DIGITAL SCREENING MAMMOGRAM 3D/2D WITH CAD: 06/01/2022 CLINICAL: Routine screening. Family history of breast cancer. Comparison is made to exams dated: 05/04/2021 mammogram, 04/25/2020 mammogram, and 04/24/2019 mammogram - [facility]. There are scattered areas of fibroglandular density in both breasts (category b / 25%-50% glandular tissue). Current study was also evaluated with a Computer Aided Detection (CAD) system. There is a biopsy clip in the right breast. No significant masses, calcifications, or other findings are seen in either breast. There has been no significant interval change. IMPRESSION: NEGATIVE There is no mammographic evidence of malignancy. A 1 year screening mammogram is recommended. Based on the Tyrer Cuzick model (a risk assessment model) the patient's lifetime risk is 5.8% and her 10 year risk is 5.2%. According to the ACR, ACS, and NCCN guidelines, an annual breast MRI exam along with mammogram is recommended if the patient's lifetime risk is 20% or greater. This exam was interpreted at Station ID: [id number]. NOTE: For mammograms, a report in lay terms will be sent to the patient. Approximately 15% of breast malignancies will not be visualized mammographically. In the management of a palpable breast mass, a negative mammogram must not discourage biopsy of a clinically suspicious lesion. Electronically Signed By: Jes may/eduar:06/01/2022 13:34:26 letter sent: Normal Exam ACR BI-RADS Category 1: Negative 3341F
== END ==
PROVIDERS: Family Provider Physician Assistant; PCP Family Medicine; Referring Provider Family Medicine; Visit Provider Family Medicine
DX: Z12.31 Encounter for screening mammogram for malignant neoplasm of breast (principal); Z80.3 Family history of malignant neoplasm of breast
CPT/HCPCS: 77063; 77067

== ENCOUNTER → 2022-08-02 10:50 | Outpatient (ROUT) | payer MEDICARE, SELFPAY ==
[2022-08-02 11:44] LABS: COVID19 -Nasal RAPID Negative (Negative)
== END ==
PROVIDERS: Family Provider Physician Assistant; PCP Family Medicine; Visit Provider Family Medicine
DX: J06.9 Acute upper respiratory infection, unspecified (principal); Z20.822 Contact with and (suspected) exposure to COVID-19
CPT/HCPCS: 87635

== ENCOUNTER → 2022-08-06 08:30 | Outpatient (CLI) | payer MEDICARE, SELFPAY ==
[2022-08-06 09:01] LABS: Add Manual Diff / Slide Review NO; Basophils Absolute Auto 0 /uL (0-100); Basophils Percent Auto 0.9 % (0-2); Eosinophils Absolute Auto 200 /uL (0-450); Eosinophils Percent Auto 6.3 % (2-4); Hematocrit 37.3 % (36-46); Hemoglobin 12.6 g/dL (12.0-16.0); Lymphocytes Absolute Auto 1300 /uL (1100-4500); Lymphocytes Percent Auto 34.5 % (25-40); Mean Corpuscular HGB Conc 33.7 % (30-36); Mean Corpuscular Hemoglobin 32.9 PG (26-34); Mean Corpuscular Volume 97.5 fL (80-100); Monocytes Absolute Auto 300 /uL (0-900); Neutrophils Absolute Auto 1900 /uL (1500-7000); Neutrophils Percent Auto 49.3 % (50-75); Platelet Count 159 X10^3/uL (150-400); Red Blood Cell Count 3.83 X10^6/uL (4.0-5.2); Red Cell Distribution Width 13.6 % (11.6-14.8); White Blood Cell Count 3.8 X10^3/uL (4.5-11.0)
[2022-08-06 09:19] LABS: Alanine Aminotransferase 39 IU/L (<35); Albumin 4.3 g/dL (3.5-5.0); Albumin Globulin Ratio 1.3 (1.0-2.8); Alkaline Phosphatase 83 U/L (38-126); Aspartate Aminotransferase 46 IU/L (14-36); BUN Creatinine Ratio 15.3 (6-22); Bilirubin Total 0.5 mg/dL (0.2-1.3); Blood Urea Nitrogen 11 mg/dL (7-17); Calcium 9.4 mg/dL (8.4-10.2); Carbon Dioxide 28 mmol/L (22-32); Chloride 103 mmol/L (98-107); Cholesterol 179 mg/dL (140-199); Estimated Glomerular Filt Rate > 60 mL/min (>60); Globulin 3.3 g/dL (1.7-4.1); Glucose 88 mg/dL (80-110); HDL Cholesterol 64 mg/dL (40-60); HEMOLYSIS < 15 (0-50); LDL Cholesterol Calculated 100 mg/dL (<100); Potassium 4.4 mmol/L (3.4-5.1); Sodium 141 mmol/L (137-145); Total Protein 7.6 g/dL (6.3-8.2); Triglycerides 75 mg/dL (35-150)
== END ==
PROVIDERS: Family Provider Physician Assistant; PCP Family Medicine; Referring Provider Family Medicine; Visit Provider Family Medicine
DX: R74.8 Abnormal levels of other serum enzymes (principal); E78.5 Hyperlipidemia, unspecified; M19.90 Unspecified osteoarthritis, unspecified site
CPT/HCPCS: 36415; 80053; 80061; 85025

== ENCOUNTER 2022-09-23 11:09 | Emergency (ER) | payer MEDICARE, SELFPAY ==
[2022-09-23] VITALS (10 sets, daily range): BP systolic 106–165; BP diastolic 60–77; PULSE 58–75; RESP 17–24; TEMP 36.3; O2SAT 91–100; BMI 26.3
--- NOTE | 2022-09-23 11:24 | DI.RAD.S_ITS ---
PROCEDURE: XR CHEST 1V INDICATIONS: Flu like symptoms TECHNIQUE: One view of the chest was acquired. COMPARISON: [facility], CR, XR CHEST 2V, 08/27/2019, 12:27. [facility], CR, XR CHEST 2V, 05/15/2021, 16:00. FINDINGS: Surgical changes and devices: Cholecystectomy clips are seen. Lungs and pleura: On this semiupright portable chest examination, no large pneumothorax or large pleural effusions are seen. No focal infiltrates are seen. Mediastinum: Mediastinal contours appear normal. Heart size is normal. Bones and chest wall: No suspicious bony lesions. Age-appropriate bony degenerative changes are seen. Overlying soft tissues appear unremarkable. IMPRESSION: No focal infiltrates are seen. Dictated by: Rolando Hurst M.D. on 09/23/2022 at 11:03 Approved by: Rolando Hurst M.D. on 09/23/2022 at 11:04
[2022-09-23 11:37] LABS: Add Manual Diff / Slide Review NO; Basophils Absolute Auto 100 /uL (0-100); Basophils Percent Auto 1.2 % (0-2); Eosinophils Absolute Auto 400 /uL (0-450); Eosinophils Percent Auto 8.6 % (2-4); Hematocrit 37.2 % (36-46); Hemoglobin 12.6 g/dL (12.0-16.0); Lymphocytes Absolute Auto 1600 /uL (1100-4500); Lymphocytes Percent Auto 35.3 % (25-40); Mean Corpuscular HGB Conc 33.9 % (30-36); Mean Corpuscular Hemoglobin 32.7 PG (26-34); Mean Corpuscular Volume 96.6 fL (80-100); Monocytes Absolute Auto 400 /uL (0-900); Monocytes Percent Auto 8.9 % (3-14); Neutrophils Absolute Auto 2100 /uL (1500-7000); Platelet Count 179 X10^3/uL (150-400); Red Blood Cell Count 3.85 X10^6/uL (4.0-5.2); Red Cell Distribution Width 13.2 % (11.6-14.8); White Blood Cell Count 4.6 X10^3/uL (4.5-11.0)
[2022-09-23 11:46] LABS: Prothrombin Time 11.6 SECONDS (10.1-12.7)
[2022-09-23 11:52] LABS: Alanine Aminotransferase 32 IU/L (<35); Albumin 4.2 g/dL (3.5-5.0); Albumin Globulin Ratio 1.3 (1.0-2.8); Alkaline Phosphatase 112 U/L (38-126); Aspartate Aminotransferase 40 IU/L (14-36); BUN Creatinine Ratio 15.9 (6-22); Bilirubin Total 0.6 mg/dL (0.2-1.3); Blood Urea Nitrogen 11 mg/dL (7-17); Calcium 9.6 mg/dL (8.4-10.2); Carbon Dioxide 30 mmol/L (22-32); Chloride 102 mmol/L (98-107); Creatine Kinase 117 U/L (30-135); Estimated Glomerular Filt Rate > 60 mL/min (>60); Globulin 3.3 g/dL (1.7-4.1); Glucose 95 mg/dL (80-110); HEMOLYSIS < 15 (0-50); Lipase 40 U/L (23-300); Sodium 137 mmol/L (137-145); Total Protein 7.5 g/dL (6.3-8.2)
[2022-09-23 12:04] LABS: Troponin I < 0.012 ng/mL (0.01-0.034)
[2022-09-23 12:07] LABS: CKMB % Relative Index 0.4 % (1.5-5.0); Creatine Kinase MB 0.44 ng/mL (<2.37)
--- NOTE | 2022-09-23 13:06 | DI.CT.S_ITS ---
PROCEDURE: CT ABDOMEN PELVIS W CON INDICATIONS: Hx Ovidio fundoplication, cholecystectomy, RUQ/Flank pain TECHNIQUE: After the administration of intravenous contrast, axial sections acquired from the lung bases to the pubic symphysis. Coronal and sagittal reformats were performed. For radiation dose reduction, the following was used: automated exposure control, adjustment of mA and/or kV according to patient size. COMPARISON: None. FINDINGS: Image quality: Excellent. Lung bases: Unremarkable. Heart: No significant findings. ABDOMEN: Liver: No masses. Gallbladder: Surgically absent. Biliary ducts: Appropriate post cholecystectomy. Pancreas: Normal. Spleen: Normal. Adrenal Glands: No nodules. Kidneys and Ureters: Symmetric enhancement. No nephrolithiasis or hydronephrosis. No hydroureter. Stomach and Bowel: There is morphology of a Brianna fundoplication and very small hiatal hernia suggesting partial slipped Brianna. The stomach is decompressed. Normal caliber small bowel with some air-fluid levels. Mildly increased quantity of solid stool throughout the colon. No focal colon wall thickening or inflammation. Peritoneum: No abnormal intraperitoneal fluid. No free air. Ventral Wall: No hernias. Abdominal Nodes: No retroperitoneal or mesenteric adenopathy by size criteria. Vessels: Aorta and inferior vena cava are normal in size. PELVIS: Pelvic Organs: Normal CT appearance of the uterus. Ovarian tissue is not seen. Bladder: Normal wall thickness. Pelvic Nodes: No enlarged lymph nodes. Miscellaneous: No hernias are seen. 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 Grade 1 anterolisthesis L4-5. Mild facet arthropathy. No fractures to explain right flank pain. IMPRESSION: 1. No visible fractures or right renal pathology to explain right flank pain. 2. Mild diffuse colonic obstipation. 3. Partial slipped Brianna. Dictated by: Jes Collazo M.D. on 09/23/2022 at 13:33 Approved by: Jes Collazo M.D. on 09/23/2022 at 13:40
[2022-09-23 13:25] LABS: C-Reactive Protein Quant 0.7 mg/dL (<1.0)
--- NOTE | 2022-09-23 13:27 | ED.ABDPAIN ---
HPI - Abdominal Pain <[facility] - Last Filed: 09/23/22 16:31> General Chief Complaint: Abdominal Pain Stated Complaint: rt side abd pain, pressure into chest Time Seen by Provider: 09/23/22 12:32 Source: patient Mode of arrival: Ambulatory History of Present Illness HPI narrative: This is a 72-year-old female with history any son fundoplication 9 years ago, cholecystectomy 9 years ago, GERD on daily PPI, and reports worsening right upper quadrant and right flank pain over the last 1 month with galilea-colored stools that are pencil thin. She denies fever or chills. States that she also has history of vocal cord spasticity in his seen ENT at [facility]. She sees Dr. Ruano for her pulmonary interstitial lung disease. And Dr. Zuñiga for rheumatology regarding her new diagnosis of Sjogren's syndrome. She states that they think her vocal cord spasticity is secondary to her Sjogren's syndrome. She has not had nausea or vomiting but endorses epigastric pain, states this pain radiates to her right flank and she has right-sided flank tenderness to palpation. Denies history of nephrolithiasis, denies blood in her stools or dysuria with urinary frequency or urgency. She states that she is had anorexia, pain in her abdomen has been intermittently across the transverse lower aspect in worse with walking, bending over, also primarily in the right upper quadrant radiating to her right flank. She [facility] and is scheduled to have esophageal dilatation in 2 weeks. She has not been seen by Gastroenterology recently. States that she is had endoscopy and colonoscopy in the past but it has been a long time. Related Data Home Medications Medication Instructions Recorded Confirmed cyanocobalamin (vitamin B-12) 2,000 mcg PO DAILY 10/01/18 05/23/22 2,000 mcg tablet,extended release (Vitamin B-12 ER) omeprazole 40 mg capsule,delayed 40 mg PO DAILY 08/27/19 05/23/22 release cholecalciferol (vitamin D3) 50 50 mcg PO DAILY 02/21/21 05/23/22 mcg (2,000 unit) capsule (Vitamin D3) meloxicam 15 mg tablet 15 mg PO PRN PRN Pain (Scale Score 02/21/21 05/23/22 1-3) cyclobenzaprine 5 mg tablet 5 mg PO .PRN 02/07/22 05/23/22 dicyclomine 10 mg capsule 10 mg PO .PRN 02/07/22 05/23/22 escitalopram oxalate 10 mg tablet 10 mg PO DAILY 02/07/22 05/23/22 folic acid 1 mg tablet 4 mg PO DAILY 02/07/22 05/23/22 hydrocortisone-acetic acid 1 %-2 % drp otic (ear) 02/07/22 05/23/22 ear drops methotrexate sodium 2.5 mg tablet 17.5 mg PO WEEKLY 02/07/22 05/23/22 atorvastatin 10 mg tablet 10 mg PO DAILY 05/23/22 05/23/22 Previous Rx's Medication Instructions Recorded cephalexin 500 mg capsule 500 mg PO TID 5 days #15 caps 09/23/22 omeprazole 40 mg capsule,delayed 40 mg PO BID #60 caps 09/23/22 release polyethylene glycol 3350 17 17 g PO BID PRN soft stools #510 09/23/22 gram/dose oral powder (Miralax) grams sucralfate 1 gram tablet (Carafate) 1 g PO TID PRN epigastric pain #60 09/23/22 tabs Allergies Allergy/AdvReac Type Severity Reaction Status Date / Time No Known Drug Allergies Allergy Verified 09/23/22 10:59 Review of Systems <TYREE Hatfield - Last Filed: 09/23/22 16:31> Review of Systems ROS Unobtainable: All systems reviewed & are unremarkable except as noted in HPI and below Patient History <TYREE Hatfield - Last Filed: 09/23/22 16:31> Medical History (Updated 09/23/22 @ 16:31 by TYREE Hatfield) Depression Dyslipidemia GERD (gastroesophageal reflux disease) Hepatitis B core antibody positive History of anemia Knee pain, bilateral Liver enzyme elevation Low vitamin D level Reactive airway disease Social History household members: spouse Smoking Status: Never smoker alcohol intake: never Smoking Status: Never smoker alcohol intake frequency: holidays/special occasions only Substance Use Type: does not use Exam <TYREE Hatfield - Last Filed: 09/23/22 16:31> Narrative Exam Narrative: Reviewed vitals signs and nursing notes. General: cooperative, in no acute distress, well groomed, afebrile HEENT: symmetrical facial expressions, moist mucous membranes, neck is supple CV: regular rate and rhythm, warm extremities Respiratory: Without abnormal breath sounds, normal work of breathing, without tachypnea, hypoxia. GI: abdomen soft, nontender to palpation in all quadrants, nondistended, without masses, rebound tenderness, mild right-sided CVA tenderness MSK: moves all extremities, neurovascularly intact, no weakness, normal tone Skin: brisk capillary refill, without rash or wound Neuro: normal speech and cognition, A&O x3, ambulatory, clear speech Initial Vital Signs Initial Vital Signs: Vital Signs Temperature 97.3 F L 09/23/22 11:10 Pulse Rate 64 09/23/22 11:10 Respiratory Rate 18 09/23/22 11:10 Blood Pressure 165/75 H 09/23/22 11:10 Pulse Oximetry 98 09/23/22 11:10 Oxygen Delivery Method Room Air 09/23/22 11:10 <Ingrid Woodard DO - Last Filed: 09/24/22 08:27> Initial Vital Signs Initial Vital Signs: Vital Signs Temperature 97.3 F L 09/23/22 11:10 Pulse Rate 64 09/23/22 11:10 Respiratory Rate 18 09/23/22 11:10 Blood Pressure 165/75 H 09/23/22 11:10 Pulse Oximetry 98 09/23/22 11:10 Oxygen Delivery Method Room Air 09/23/22 11:10 Course <TYREE Hatfield - Last Filed: 09/23/22 16:31> Orders Ordered: Discontinued Medications Acetaminophen (Acetaminophen 325 Mg Tablet) 650 mg PO NOW ONE Stop: 09/23/22 13:31 Last Admin: 09/23/22 13:54 Dose: 650 mg Documented By: BS Cephalexin HCl (Cephalexin 250 Mg Capsule) 500 mg PO NOW ONE Stop: 09/23/22 14:19 Last Admin: 09/23/22 14:30 Dose: 500 mg Documented By: SPF Al Hydrox/Mg Hydrox/Simethicone 20 ml/ Lidocaine HCl 15 ml 0 ml PO NOW ONE Stop: 09/23/22 13:31 Last Admin: 09/23/22 13:54 Dose: 45 ml Documented By: BS Ondansetron HCl (Ondansetron 4 Mg Odt) 4 mg PO NOW PRN PRN Reason: Nausea And Vomiting Ondansetron HCl (Ondansetron 4 Mg/2 Ml Inj) 4 mg IV NOW PRN PRN Reason: Nausea And Vomiting Pantoprazole Sodium (Pantoprazole 40 Mg Vial) 80 mg IV NOW ONE Stop: 09/23/22 13:31 Last Admin: 09/23/22 13:58 Dose: 80 mg Documented By: SHAI Vital Signs Vital signs: Vital Signs - 8 hr 09/23/22 11:10 09/23/22 11:18 09/23/22 11:30 Temperature 97.3 F L Pulse Rate 64 61 Respiratory Rate 18 22 Blood Pressure 165/75 H 130/60 Pulse Oximetry 98 98 Oxygen Delivery Method Room Air 09/23/22 11:30 09/23/22 12:00 09/23/22 12:00 Temperature Pulse Rate 58 L 63 Respiratory Rate 22 22 Blood Pressure 118/71 Pulse Oximetry 100 98 Oxygen Delivery Method Room Air 09/23/22 12:30 09/23/22 12:30 09/23/22 13:00 Temperature Pulse Rate 63 Respiratory Rate 18 Blood Pressure 106/66 118/65 Pulse Oximetry 97 Oxygen Delivery Method 09/23/22 13:00 09/23/22 13:35 09/23/22 13:37 Temperature Pulse Rate 58 L 75 Respiratory Rate 24 Blood Pressure 131/63 Pulse Oximetry 99 91 Oxygen Delivery Method Room Air 09/23/22 13:37 09/23/22 14:00 09/23/22 14:00 Temperature Pulse Rate 66 61 Respiratory Rate 18 17 Blood Pressure 123/77 Pulse Oximetry 98 99 Oxygen Delivery Method Room Air 09/23/22 14:30 09/23/22 14:30 Temperature Pulse Rate 66 Respiratory Rate 21 Blood Pressure 119/69 Pulse Oximetry 98 Oxygen Delivery Method Room Air <Ingrid Woodard DO - Last Filed: 09/24/22 08:27> Orders Ordered: Discontinued Medications Acetaminophen (Acetaminophen 325 Mg Tablet) 650 mg PO NOW ONE Stop: 09/23/22 13:31 Last Admin: 09/23/22 13:54 Dose: 650 mg Documented By: SHAI Cephalexin HCl (Cephalexin 250 Mg Capsule) 500 mg PO NOW ONE Stop: 09/23/22 14:19 Last Admin: 09/23/22 14:30 Dose: 500 mg Documented By: SPF Al Hydrox/Mg Hydrox/Simethicone 20 ml/ Lidocaine HCl 15 ml 0 ml PO NOW ONE Stop: 09/23/22 13:31 Last Admin: 09/23/22 13:54 Dose: 45 ml Documented By: BS Ondansetron HCl (Ondansetron 4 Mg Odt) 4 mg PO NOW PRN PRN Reason: Nausea And Vomiting Ondansetron HCl (Ondansetron 4 Mg/2 Ml Inj) 4 mg IV NOW PRN PRN Reason: Nausea And Vomiting Pantoprazole Sodium (Pantoprazole 40 Mg Vial) 80 mg IV NOW ONE Stop: 09/23/22 13:31 Last Admin: 09/23/22 13:58 Dose: 80 mg Documented By: BS Vital Signs Vital signs: Vital Signs - 8 hr 09/23/22 11:10 09/23/22 11:18 09/23/22 11:30 Temperature 97.3 F L Pulse Rate 64 61 Respiratory Rate 18 22 Blood Pressure 165/75 H 130/60 Pulse Oximetry 98 98 Oxygen Delivery Method Room Air 09/23/22 11:30 09/23/22 12:00 09/23/22 12:00 Temperature Pulse Rate 58 L 63 Respiratory Rate 22 22 Blood Pressure 118/71 Pulse Oximetry 100 98 Oxygen Delivery Method Room Air 09/23/22 12:30 09/23/22 12:30 09/23/22 13:00 Temperature Pulse Rate 63 Respiratory Rate 18 Blood Pressure 106/66 118/65 Pulse Oximetry 97 Oxygen Delivery Method 09/23/22 13:00 09/23/22 13:35 09/23/22 13:37 Temperature Pulse Rate 58 L 75 Respiratory Rate 24 Blood Pressure 131/63 Pulse Oximetry 99 91 Oxygen Delivery Method Room Air 09/23/22 13:37 09/23/22 14:00 09/23/22 14:00 Temperature Pulse Rate 66 61 Respiratory Rate 18 17 Blood Pressure 123/77 Pulse Oximetry 98 99 Oxygen Delivery Method Room Air 09/23/22 14:30 09/23/22 14:30 Temperature Pulse Rate 66 Respiratory Rate 21 Blood Pressure 119/69 Pulse Oximetry 98 Oxygen Delivery Method Room Air MDM - Abdominal Pain <TYREE Hatfield - Last Filed: 09/23/22 16:31> Lab Data 09/23/22 11:29 09/23/22 11:29 Labs: Lab Results 09/23/22 09/23/22 09/23/22 Range/Units 11:29 11:29 11:29 WBC 4.6 (4.5-11.0) X10^3/uL RBC 3.85 L (4.0-5.2) X10^6/uL Hgb 12.6 (12.0-16.0) g/dL Hct 37.2 (36-46) % MCV 96.6 (80-100) fL MCH 32.7 (26-34) PG MCHC 33.9 (30-36) % RDW 13.2 (11.6-14.8) % Plt Count 179 (150-400) X10^3/uL Neut % (Auto) 46.0 L (50-75) % Lymph % (Auto) 35.3 (25-40) % Weber % (Auto) 8.9 (3-14) % Eos % (Auto) 8.6 H (2-4) % Baso % (Auto) 1.2 (0-2) % Neut # (Auto) 2100 (9735-7541) /uL Lymph # (Auto) 1600 (3294-3665) /uL Weber # (Auto) 400 (0-900) /uL Eos # (Auto) 400 (0-450) /uL Baso # (Auto) 100 (0-100) /uL PT 11.6 (10.1-12.7) SECONDS INR 1.0 (0.9-1.3) Sodium 137 (137-145) mmol/L Potassium 4.0 (3.4-5.1) mmol/L Chloride 102 (98-107) mmol/L Carbon Dioxide 30 (22-32) mmol/L BUN 11 (7-17) mg/dL Creatinine 0.69 (0.52-1.04) mg/dL Estimated GFR > 60 (>60) mL/min BUN/Creatinine Ratio 15.9 (6-22) Glucose 95 (80-110) mg/dL Calcium 9.6 (8.4-10.2) mg/dL Total Bilirubin 0.6 (0.2-1.3) mg/dL AST 40 H (14-36) IU/L ALT 32 (<35) IU/L Alkaline Phosphatase 112 (38-126) U/L Total Creatine Kinase 117 (30-135) U/L CK-MB (CK-2) 0.44 (<2.37) ng/mL CK-MB (CK-2) Rel Index 0.4 L (1.5-5.0) % Troponin I < 0.012 (0.01-0.034) ng/mL C-Reactive Protein (<1.0) mg/dL Total Protein 7.5 (6.3-8.2) g/dL Albumin 4.2 (3.5-5.0) g/dL Globulin 3.3 (1.7-4.1) g/dL Albumin/Globulin Ratio 1.3 (1.0-2.8) Lipase 40 (23-300) U/L Urine Color Urine Appearance Urine pH (4.5-8.0) Ur Specific Waka (1.000-1.035) Urine Protein (Negative) Urine Glucose (UA) (Negative) g/dL Urine Ketones (NEGATIVE) Urine Occult Blood (Negative) Urine Nitrate (Negative) Urine Bilirubin (NEGATIVE) Urine Urobilinogen (0.2) E.U./dL Ur Leukocyte Esterase (NEGATIVE) Urine RBC Urine WBC Ur Squamous Epith Cells Ur Transition Epith Cell Ur Renal Epithelial Cell Calcium Oxalate Crystal Uric Acid Crystals Triple Phos Crystals Other Crystals Amorphous Sediment Urine Bacteria Hyaline Casts Granular Casts RBC Casts WBC Casts Other Casts Urine Mucus Urine Trichomonas Urine Yeast Urine Sperm Ur Culture Indicated? Micro UA Comment 09/23/22 09/23/22 09/23/22 Range/Units 11:29 13:35 13:35 WBC (4.5-11.0) X10^3/uL RBC (4.0-5.2) X10^6/uL Hgb (12.0-16.0) g/dL Hct (36-46) % MCV (80-100) fL MCH (26-34) PG MCHC (30-36) % RDW (11.6-14.8) % Plt Count (150-400) X10^3/uL Neut % (Auto) (50-75) % Lymph % (Auto) (25-40) % Weber % (Auto) (3-14) % Eos % (Auto) (2-4) % Baso % (Auto) (0-2) % Neut # (Auto) (7386-5343) /uL Lymph # (Auto) (4522-7028) /uL Weber # (Auto) (0-900) /uL Eos # (Auto) (0-450) /uL Baso # (Auto) (0-100) /uL PT (10.1-12.7) SECONDS INR (0.9-1.3) Sodium (137-145) mmol/L Potassium (3.4-5.1) mmol/L Chloride (98-107) mmol/L Carbon Dioxide (22-32) mmol/L BUN (7-17) mg/dL Creatinine (0.52-1.04) mg/dL Estimated GFR (>60) mL/min BUN/Creatinine Ratio (6-22) Glucose (80-110) mg/dL Calcium (8.4-10.2) mg/dL Total Bilirubin (0.2-1.3) mg/dL AST (14-36) IU/L ALT (<35) IU/L Alkaline Phosphatase (38-126) U/L Total Creatine Kinase (30-135) U/L CK-MB (CK-2) (<2.37) ng/mL CK-MB (CK-2) Rel Index (1.5-5.0) % Troponin I (0.01-0.034) ng/mL C-Reactive Protein 0.7 (<1.0) mg/dL Total Protein (6.3-8.2) g/dL Albumin (3.5-5.0) g/dL Globulin (1.7-4.1) g/dL Albumin/Globulin Ratio (1.0-2.8) Lipase (23-300) U/L Urine Color Yellow Urine Appearance Clear Urine pH 7.0 (4.5-8.0) Ur Specific Waka 1.010 (1.000-1.035) Urine Protein Negative (Negative) Urine Glucose (UA) Negative (Negative) g/dL Urine Ketones Negative (NEGATIVE) Urine Occult Blood Negative (Negative) Urine Nitrate Negative (Negative) Urine Bilirubin Negative (NEGATIVE) Urine Urobilinogen 0.2 (0.2) E.U./dL Ur Leukocyte Esterase 2+ H (NEGATIVE) Urine RBC Cancelled 0-1/hpf Urine WBC Cancelled 5-10/hpf H Ur Squamous Epith Cells Cancelled 0-1 /hpf Ur Transition Epith Cell Cancelled Ur Renal Epithelial Cell Cancelled Calcium Oxalate Crystal Cancelled Uric Acid Crystals Cancelled Triple Phos Crystals Cancelled Other Crystals Cancelled Amorphous Sediment Cancelled Urine Bacteria Cancelled Occasional (0-1) Hyaline Casts Cancelled Granular Casts Cancelled RBC Casts Cancelled WBC Casts Cancelled Other Casts Cancelled Urine Mucus Cancelled Urine Trichomonas Cancelled Urine Yeast Cancelled Urine Sperm Cancelled Ur Culture Indicated? Cancelled Specimen cultured Micro UA Comment Cancelled Imaging Data CT scan - abdomen/pelvis: Radiologist's Impression: PROCEDURE:? CT ABDOMEN PELVIS W CON ? INDICATIONS:? Hx Ovidio fundoplication, cholecystectomy, RUQ/Flank pain ? TECHNIQUE:? After the administration of intravenous contrast, axial sections acquired from the lung bases to the pubic symphysis.? Coronal and sagittal reformats were performed.? For radiation dose reduction, the following was used:? automated exposure control, adjustment of mA and/or kV according to patient size.? ? COMPARISON:? None. ? FINDINGS:? Image quality:? Excellent.? ? Lung bases:? Unremarkable. Heart:? No significant findings. ? ABDOMEN: Liver:? No masses. Gallbladder:? Surgically absent.? ? Biliary ducts:? Appropriate post cholecystectomy. Pancreas:? Normal. Spleen:? Normal. Adrenal Glands:? No nodules. Kidneys and Ureters: Symmetric enhancement.? No nephrolithiasis or hydronephrosis.? No hydroureter. ? Stomach and Bowel:? There is morphology of a Brianna fundoplication and very small hiatal hernia suggesting partial slipped Brianna.? The stomach is decompressed.? Normal caliber small bowel with some air-fluid levels.? Mildly increased quantity of solid stool throughout the colon.? No focal colon wall thickening or inflammation. Peritoneum:? No abnormal intraperitoneal fluid.? No free air.? ? Ventral Wall: ? No hernias.? Abdominal Nodes:? No retroperitoneal or mesenteric adenopathy by size criteria.? Vessels:? Aorta and inferior vena cava are normal in size.? ? PELVIS: Pelvic Organs:? Normal CT appearance of the uterus.? Ovarian tissue is not seen. Bladder:? Normal wall thickness. Pelvic Nodes: No enlarged lymph nodes.? Miscellaneous: No hernias are seen. ? ? ? Bones:? Multilevel moderate degeneration of the lumbar discs.? Grade 1 anterolisthesis L4-5.? Mild facet arthropathy.? No fractures to explain right flank pain. ? ? IMPRESSION:? ? 1. No visible fractures or right renal pathology to explain right flank pain. ? 2. Mild diffuse colonic obstipation. ? 3. Partial slipped Brianna.? ? ? Dictated by: Jes Collazo M.D. on 09/23/2022 at 13:33 ? ? Approved by: Jes Collazo M.D. on 09/23/2022 at 13:40 ? MDM Narrative Medical decision making narrative: Chief Complaint: Epigastric pain, bloating, Independent historian: Patient Differential diagnoses include but are not limited to: Acute viral process, gastritis, gastric ulcer, duodenal ulcer, cholangitis, gastroenteritis, GERD with reflux esophagitis, bowel obstruction, perforated viscus, appendicitis, colitis, diverticulitis, IBD/IBS, intestinal ischemia, obstructive uropathy, acute cystitis, pyelonephritis, urinary tract infection, constipation Doubt atypical ACS. No peritoneal signs on abdominal exam. Patient remains p.o. tolerant. Serial abdominal exam without increase in abdominal pain. Extensive conversation about ER return precautions and need for close follow-up. I have independently reviewed the patient's vital signs and nursing notes as well as prior records if available. Pertinent lab findings reviewed: Lab work overall is unremarkable, UA shows 5-10 RBCs and WBCs with small bacteria, she does not dysuria but endorses urinary frequency, leukocyte esterase was positive on the urine dip. No leukocytosis or anemia, no elevation to patient's liver enzymes or troponin, no elevation to CRP, lipase is Pertinent Imaging reviewed: CT abdomen pelvis without evidence of acute inflammation, obstructive uropathy, she does have mild diffuse colonic obstipation with a partial slipped Ovidio, increased quantity of stool throughout the colon without wall thickening or inflammation, no intraperitoneal free fluid or air. Course of care: Discuss patient's findings with the patient, she is passing gas but has not had a bowel movement for 2 days. Discussed this can worsen some symptoms especially if she has a urinary tract infection, encouraged her to start taking MiraLax twice a day until her stool is soft, titrate down to once a day since she is taking Carafate and dicyclomine for her stools. I urged her to avoid anti-inflammatories, coffee, triggers for epigastric pain and start taking her omeprazole 40 mg twice a day for the next 30 days and use Carafate as needed for epigastric pain. I gave her contact information for [facility] so she can follow-up for endoscopy. She is not had any dark stools or blood in her stool. She is not had any vomiting. She was given contact information for her specialist providers and is set to have esophageal dilatation in 2 weeks at [facility]. She understands follow up with her specialist providers as indicated. Social considerations that may affect disposition: none Questions are addressed and there is agreement with the plan and for follow-up. Patient is appropriate for outpatient management. MIPS: This encounter doesn't have any diagnosis' associated with MIPS criteria. <Ingrid Woodard, DO - Last Filed: 09/24/22 08:27> Lab Data Labs: Lab Results 09/23/22 09/23/22 09/23/22 Range/Units 11:29 11:29 11:29 WBC 4.6 (4.5-11.0) X10^3/uL RBC 3.85 L (4.0-5.2) X10^6/uL Hgb 12.6 (12.0-16.0) g/dL Hct 37.2 (36-46) % MCV 96.6 (80-100) fL MCH 32.7 (26-34) PG MCHC 33.9 (30-36) % RDW 13.2 (11.6-14.8) % Plt Count 179 (150-400) X10^3/uL Neut % (Auto) 46.0 L (50-75) % Lymph % (Auto) 35.3 (25-40) % Weber % (Auto) 8.9 (3-14) % Eos % (Auto) 8.6 H (2-4) % Baso % (Auto) 1.2 (0-2) % Neut # (Auto) 2100 (0903-7219) /uL Lymph # (Auto) 1600 (0300-1125) /uL Weber # (Auto) 400 (0-900) /uL Eos # (Auto) 400 (0-450) /uL Baso # (Auto) 100 (0-100) /uL PT 11.6 (10.1-12.7) SECONDS INR 1.0 (0.9-1.3) Sodium 137 (137-145) mmol/L Potassium 4.0 (3.4-5.1) mmol/L Chloride 102 (98-107) mmol/L Carbon Dioxide 30 (22-32) mmol/L BUN 11 (7-17) mg/dL Creatinine 0.69 (0.52-1.04) mg/dL Estimated GFR > 60 (>60) mL/min BUN/Creatinine Ratio 15.9 (6-22) Glucose 95 (80-110) mg/dL Calcium 9.6 (8.4-10.2) mg/dL Total Bilirubin 0.6 (0.2-1.3) mg/dL AST 40 H (14-36) IU/L ALT 32 (<35) IU/L Alkaline Phosphatase 112 (38-126) U/L Total Creatine Kinase 117 (30-135) U/L CK-MB (CK-2) 0.44 (<2.37) ng/mL CK-MB (CK-2) Rel Index 0.4 L (1.5-5.0) % Troponin I < 0.012 (0.01-0.034) ng/mL C-Reactive Protein (<1.0) mg/dL Total Protein 7.5 (6.3-8.2) g/dL Albumin 4.2 (3.5-5.0) g/dL Globulin 3.3 (1.7-4.1) g/dL Albumin/Globulin Ratio 1.3 (1.0-2.8) Lipase 40 (23-300) U/L Urine Color Urine Appearance Urine pH (4.5-8.0) Ur Specific Waka (1.000-1.035) Urine Protein (Negative) Urine Glucose (UA) (Negative) g/dL Urine Ketones (NEGATIVE) Urine Occult Blood (Negative) Urine Nitrate (Negative) Urine Bilirubin (NEGATIVE) Urine Urobilinogen (0.2) E.U./dL Ur Leukocyte Esterase (NEGATIVE) Urine RBC Urine WBC Ur Squamous Epith Cells Ur Transition Epith Cell Ur Renal Epithelial Cell Calcium Oxalate Crystal Uric Acid Crystals Triple Phos Crystals Other Crystals Amorphous Sediment Urine Bacteria Hyaline Casts Granular Casts RBC Casts WBC Casts Other Casts Urine Mucus Urine Trichomonas Urine Yeast Urine Sperm Ur Culture Indicated? Micro UA Comment 09/23/22 09/23/22 09/23/22 Range/Units 11:29 13:35 13:35 WBC (4.5-11.0) X10^3/uL RBC (4.0-5.2) X10^6/uL Hgb (12.0-16.0) g/dL Hct (36-46) % MCV (80-100) fL MCH (26-34) PG MCHC (30-36) % RDW (11.6-14.8) % Plt Count (150-400) X10^3/uL Neut % (Auto) (50-75) % Lymph % (Auto) (25-40) % Weber % (Auto) (3-14) % Eos % (Auto) (2-4) % Baso % (Auto) (0-2) % Neut # (Auto) (4265-5660) /uL Lymph # (Auto) (7500-4510) /uL Weber # (Auto) (0-900) /uL Eos # (Auto) (0-450) /uL Baso # (Auto) (0-100) /uL PT (10.1-12.7) SECONDS INR (0.9-1.3) Sodium (137-145) mmol/L Potassium (3.4-5.1) mmol/L Chloride (98-107) mmol/L Carbon Dioxide (22-32) mmol/L BUN (7-17) mg/dL Creatinine (0.52-1.04) mg/dL Estimated GFR (>60) mL/min BUN/Creatinine Ratio (6-22) Glucose (80-110) mg/dL Calcium (8.4-10.2) mg/dL Total Bilirubin (0.2-1.3) mg/dL AST (14-36) IU/L ALT (<35) IU/L Alkaline Phosphatase (38-126) U/L Total Creatine Kinase (30-135) U/L CK-MB (CK-2) (<2.37) ng/mL CK-MB (CK-2) Rel Index (1.5-5.0) % Troponin I (0.01-0.034) ng/mL C-Reactive Protein 0.7 (<1.0) mg/dL Total Protein (6.3-8.2) g/dL Albumin (3.5-5.0) g/dL Globulin (1.7-4.1) g/dL Albumin/Globulin Ratio (1.0-2.8) Lipase (23-300) U/L Urine Color Yellow Urine Appearance Clear Urine pH 7.0 (4.5-8.0) Ur Specific Waka 1.010 (1.000-1.035) Urine Protein Negative (Negative) Urine Glucose (UA) Negative (Negative) g/dL Urine Ketones Negative (NEGATIVE) Urine Occult Blood Negative (Negative) Urine Nitrate Negative (Negative) Urine Bilirubin Negative (NEGATIVE) Urine Urobilinogen 0.2 (0.2) E.U./dL Ur Leukocyte Esterase 2+ H (NEGATIVE) Urine RBC Cancelled 0-1/hpf Urine WBC Cancelled 5-10/hpf H Ur Squamous Epith Cells Cancelled 0-1 /hpf Ur Transition Epith Cell Cancelled Ur Renal Epithelial Cell Cancelled Calcium Oxalate Crystal Cancelled Uric Acid Crystals Cancelled Triple Phos Crystals Cancelled Other Crystals Cancelled Amorphous Sediment Cancelled Urine Bacteria Cancelled Occasional (0-1) Hyaline Casts Cancelled Granular Casts Cancelled RBC Casts Cancelled WBC Casts Cancelled Other Casts Cancelled Urine Mucus Cancelled Urine Trichomonas Cancelled Urine Yeast Cancelled Urine Sperm Cancelled Ur Culture Indicated? Cancelled Specimen cultured Micro UA Comment Cancelled ECG Data Attestation: I personally reviewed and interpreted this ECG as follows: Interpretation: Sinus bradycardia rate of 50 9p are 160 QRS 87 QTC 376. No acute ST elevation patient has prior from 12/18/2016 which appears similar. Discharge Plan Departure Patient Disposition: Home Clinical Impression: Epigastric abdominal pain Constipated Qualifiers: Constipation type: slow transit constipation Qualified Code(s): K59.01 - Slow transit constipation Urinary tract infection Qualifiers: Urinary tract infection type: site unspecified Hematuria presence: with hematuria Qualified Code(s): N39.0 - Urinary tract infection, site not specified Instructions: Constipation, DI for Urinary Tract Infection (UTI), DI for Epigastric Pain Activity Restrictions/Additional Instructions: *You have been diagnosed with colon, this is likely just slow moving stool. No signs of inflammation, your lab work is all very reassuring and no buildup of liver enzymes or other concerning signs in your abdomen. I encouraged her to start using MiraLax for soft stools morning and night. Those small pencil stools maybe related to this as well. You may start feeling better and it might be related to the dicyclomine. Please avoid the coffee, if you can avoid NSAIDs like ibuprofen and meloxicam, that will help your. Since you have other medications which get rid the mucous barrier in your stomach have a harder time keeping this safe. Please use Carafate as needed to help coat your stomach prior to having something that is not good for it and drink plenty of water and take food with all of your medications except for your omeprazole. Please start taking this morning and night. Please schedule follow-up endoscopy/colonoscopy with [facility] when you are free of your pain. If you have worsening pain, develop fever and chills, please come back to the emergency department. There was a small amount of bacteria and some blood found in your urine, we will treat this as if it is infected since you had a little bit of tenderness on exam. I hope you start feeling better soon, I encouraged her to use the MiraLax daily as it may help get rid of this bulkiness and if you have any urinary symptoms, that is always exacerbated by constipation. Please follow-up with your team at [facility] and mentioned that you have been having worsening epigastric pain, you will start taking omeprazole twice daily, Carafate as needed for epigastric pain, take this course of antibiotics for the urine infection and avoid any triggers for epigastric pain if you can. If it gets worse, you may benefit from famotidine and an endoscopy looking for an ulcer in your stomach or duodenum. *What to do: *Please continue to take your regular medications as directed. [x ] New medication prescriptions sent to your pharmacy: [ [facility]] [ ] New medication written as a paper prescription [ ] No new medications given *Please follow up with your primary care provider in 2-3 days, call for an appointment. Let them know you were seen in the Emergency Department and that we asked that you be seen for follow-up. We will electronically transmit a record of today's note if your PCP is in our system *If you do not have a primary care provider please contact [phone] to establish care with one of the [facility] primary care providers. *Return to Emergency Department if you should have any new, worsening, or concerning symptoms, such as [fever greater than 101F, chills, worsening pain, persistent vomiting or other bothersome symptoms]. Prescriptions: New sucralfate [Carafate] 1 gram tablet 1 g PO TID PRN (Reason: epigastric pain) Qty: 60 0RF omeprazole 40 mg capsule,delayed release(DR/EC) 40 mg PO BID Qty: 60 0RF polyethylene glycol 3350 [Miralax] 17 gram/dose powder 17 g PO BID PRN (Reason: soft stools) Qty: 510 0RF cephalexin 500 mg capsule 500 mg PO TID 5 Days Qty: 15 0RF No Action cyanocobalamin (vitamin B-12) [Vitamin B-12] 2,000 mcg Tablet Extended Release 2,000 mcg PO DAILY omeprazole 40 mg capsule,delayed release(DR/EC) 40 mg PO DAILY meloxicam 15 mg tablet 15 mg PO PRN PRN (Reason: Pain (Scale Score 1-3)) cholecalciferol (vitamin D3) [Vitamin D3] 50 mcg (2,000 unit) Capsule 50 mcg PO DAILY methotrexate sodium 2.5 mg tablet 17.5 mg PO WEEKLY dicyclomine 10 mg capsule 10 mg PO .PRN cyclobenzaprine 5 mg tablet 5 mg PO .PRN hydrocortisone-acetic acid 1-2 % drops otic (ear) escitalopram oxalate 10 mg tablet 10 mg PO DAILY folic acid 1 mg tablet 4 mg PO DAILY atorvastatin 10 mg tablet 10 mg PO DAILY Referrals: [facility] [Provider Group] Divine Spear ARNP [Primary Care Provider] - Eliezer Zuñiga MD [Non-Staff] - Manfred Baumann MD [Non-Staff] - Rosalio Kent MD [Non-Staff] - Eve Danielle DO [Physician] - Stand Alone Forms: Patient Portal/API <Ingrid Woodard DO - Last Filed: 09/24/22 08:27> Cosign ED Attending Cosignature Attestation: I was immediately available in the department for consultation.
[2022-09-23 13:54] LABS: Appearance Urine UA CLEAR; Bilirubin Urine UA NEGATIVE (NEGATIVE); Color Urine UA YELLOW; Glucose Urine UA NEGATIVE (Negative); Ketones Urine UA NEGATIVE (NEGATIVE); Leukocyte Esterase Urine UA 2+ (NEGATIVE); Nitrite Urine UA NEGATIVE (Negative); Occult Blood Urine UA NEGATIVE (Negative); Protein Urine UA NEGATIVE (Negative); Urobilinogen Urine UA 0.2 E.U./dL (0.2)
[2022-09-23] MEDS: ACETAMINOPHEN 325 MG TABLET 650 MG PO (13:54)
[2022-09-23] MEDS: MAG HYDROX/ALUMINUM/SIMETH SUS 20 ML, LIDOCAINE VISCOUS 2% 15 ML PO (13:54)
[2022-09-23 13:56] LABS: Bacteria Urine Occasional (0-1); Culture Indicated Urine Specimen Cultured; RBC Urine 0-1/HPF (0-5/HPF); Squamous Epithelial Cell Urine 0-1 /HPF (0-5/HPF); WBC Urine 5-10/HPF (0-5/HPF)
[2022-09-23] MEDS: PANTOPRAZOLE 40 MG VIAL 80 MG IV (13:58)
[2022-09-23] MEDS: cephALEXin 250 MG CAPSULE 500 MG PO (14:30)
== END 2022-09-23 14:38 | disposition home or self-care (01) ==
PROVIDERS: Emergency Medicine; Emergency Provider Nurse Practitioner Critical Care Medicine; Family Provider Physician Assistant; PCP Family Medicine
DX: R10.13 Epigastric pain (principal); K59.01 Slow transit constipation; N39.0 Urinary tract infection, site not specified; R00.1 Bradycardia, unspecified
CPT/HCPCS: 36415; 71045; 74177; 80053; 81001; 82550; 82553; 83690; 84484; 85025; 85610; 86140; 87086; 93005; 96374; 99284; C9113; Q9967

== ENCOUNTER → 2022-11-22 08:06 | Outpatient (CLI) | payer MEDICARE, SELFPAY ==
--- NOTE | 2022-11-22 08:08 | DI.RAD.S_ITS ---
PROCEDURE: FL BARIUM SWALLOW INDICATIONS: hiatal hernia COMPARISON: [facility], CT, CT CHEST WO CON, 06/02/2021, 15:17. [facility], CT, CT ABDOMEN PELVIS W CON, 09/23/2022, 13:15. FINDINGS: Function: There is mild esophageal dysmotility. No elicited gastroesophageal reflux. There is normal transit of a calibrated barium tablet through the esophagus into the stomach. Morphology: Postsurgical changes is noted at the gastroesophageal junction compatible. Air-contrast images demonstrate normal mucosal morphology. Single contrast views show no esophageal strictures, extrinsic mass effects, or diverticula. Limited images of the stomach demonstrate normal appearance. IMPRESSION: 1. Postsurgical changes at the GE junction. 2. Mild esophageal dysmotility. 3. No esophageal obstruction. Dictated by: Karl Davis M.D. on 11/22/2022 at 10:24 Approved by: Karl Davis M.D. on 11/22/2022 at 10:26
== END ==
PROVIDERS: Family Provider Physician Assistant; PCP Internal Medicine; Referring Provider Internal Medicine; Visit Provider Internal Medicine
DX: K44.9 Diaphragmatic hernia without obstruction or gangrene (principal); K22.4 Dyskinesia of esophagus; Z98.890 Other specified postprocedural states
CPT/HCPCS: 74220

== ENCOUNTER → 2023-01-28 07:26 | Outpatient (CLI) | payer MEDICARE, SELFPAY ==
[2023-01-28 08:27] LABS: Add Manual Diff / Slide Review NO; Basophils Absolute Auto 0 /uL (0-100); Basophils Percent Auto 0.7 % (0-2); Eosinophils Absolute Auto 400 /uL (0-450); Eosinophils Percent Auto 6.7 % (2-4); Hematocrit 35.6 % (36-46); Lymphocytes Absolute Auto 1800 /uL (1100-4500); Lymphocytes Percent Auto 31.4 % (25-40); Mean Corpuscular HGB Conc 33.6 % (30-36); Mean Corpuscular Hemoglobin 32.5 PG (26-34); Mean Corpuscular Volume 96.7 fL (80-100); Monocytes Absolute Auto 600 /uL (0-900); Monocytes Percent Auto 9.9 % (3-14); Neutrophils Absolute Auto 2900 /uL (1500-7000); Neutrophils Percent Auto 51.3 % (50-75); Platelet Count 172 X10^3/uL (150-400); Red Blood Cell Count 3.68 X10^6/uL (4.0-5.2); Red Cell Distribution Width 13.3 % (11.6-14.8); White Blood Cell Count 5.7 X10^3/uL (4.5-11.0)
[2023-01-28 08:44] LABS: Alanine Aminotransferase 27 IU/L (<35); Albumin 3.9 g/dL (3.5-5.0); Albumin Globulin Ratio 1.3 (1.0-2.8); Alkaline Phosphatase 75 U/L (38-126); Aspartate Aminotransferase 34 IU/L (14-36); Bilirubin Total 0.3 mg/dL (0.2-1.3); Blood Urea Nitrogen 17 mg/dL (7-17); C-Reactive Protein Quant < 0.5 mg/dL (<1.0); Calcium 9.1 mg/dL (8.4-10.2); Carbon Dioxide 30 mmol/L (22-32); Chloride 104 mmol/L (98-107); Estimated Glomerular Filt Rate > 60 mL/min (>60); Globulin 2.9 g/dL (1.7-4.1); Glucose 91 mg/dL (80-110); HEMOLYSIS < 15 (0-50); Potassium 4.5 mmol/L (3.4-5.1); Sodium 139 mmol/L (137-145); Total Protein 6.8 g/dL (6.3-8.2)
[2023-01-28 08:54] LABS: Erythrocyte Sedimentation Rate 37 MM/HR (0-20)
[2023-01-28 09:12] LABS: Thyroid Stimulating Hormone 2.83 uIU/mL (0.47-4.68)
== END ==
PROVIDERS: Family Provider Physician Assistant; PCP Internal Medicine; Referring Provider Internal Medicine; Visit Provider Internal Medicine
DX: M06.9 Rheumatoid arthritis, unspecified (principal); E03.9 Hypothyroidism, unspecified
CPT/HCPCS: 36415; 80053; 84443; 85025; 85651; 86140

== ENCOUNTER 2023-02-06 09:25 | Day surgery (SDC) | payer MEDICARE, SELFPAY ==
--- NOTE | 2023-02-06 | PATH_ITS ---
[facility] Accession Number: [id number] No. of containers..01 Tissue . 01 Material submitted: . gastrointestinal site - GASTRIC . 01 Clinical history: . R/O H.PYLORI . 01 Diagnosis: Stomach, Biopsy: Antral mucosa with reactive gastropathy. Body type mucosa with no diagnostic abnormality. Negative for Helicobacter organisms by immunohistochemistry. Negative for intestinal metaplasia. Negative for dysplasia and malignancy. [facility] 02/19/2023 0916 Local . 01 Electronically signed: . Blanka Barone MD, Pathologist NPI- [id number] . 01 Gross description: . GASTRIC: Received in formalin is 2 fragment(s) of jennings, soft tissue measuring 0.3 x 0.2 x 0.2 cm to 0.2 x 0.1 x 0.1 cm submitted entirely in 1 cassette(s) /AAY 02/11/2023 2302 Local . 01 Microscopic: . A. An immunohistochemical stain was performed to evaluate for Helicobacter organisms and is negative. The control stain showed appropriate reactivity. . * This test was developed and its performance characteristics determined by [facility]. It has not been cleared or approved by the U.S. Food and Drug Administration. The FDA has determined that such clearance or approval is not necessary. This test is used for clinical purposes. It should not be regarded as investigational or for research. . 01 Pathologist provided ICD-10: R10.9 . 01 CPT . 424111, [id number] Specimen Comment: A courtesy copy of this report has been sent to [phone] Performed at: 01 [facility] [address] [place] [address] [address], [place], [place] [id number] MD Lobo Casarez MD Phone: [phone]
[2023-02-06 09:35] VITALS: BP 112/74; PULSE 67; RESP 17; TEMP 36.4; O2SAT 95; BMI 26.1
--- NOTE | 2023-02-06 09:44 | P.HP_ITS ---
History of Present Illness History of Present Illness Chief complaint: EGD w/poss bx Narrative: Recurrent GE reflux post Brianna fundoplication 2011. Done by Dr. Alvarez. 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 FOR[facility]LY [facility], [facility] Medical History Abnormal chest xray Ankle fracture, left (~2013) Asthma, mild intermittent Bronchiectasis Chicken pox Chronic back pain Chronic cough Depression, major, recurrent Foot pain (~1998) GERD without esophagitis (~1995) Hepatitis A (~1966) Hepatitis B core antibody positive History of anemia History of DVT (deep vein thrombosis) Interstitial lung disease (~2020) Liver enzyme elevation Low vitamin D level Measles Mixed hyperlipidemia Osteopenia (~2021) Rheumatic fever Shoulder pain (~2021) Sjogren syndrome with inflammatory arthritis (~2020) Slow transit constipation Surgical History Anesthesia H/O exploratory laparotomy (~1969) History of appendectomy (~1967) History of cataract removal with insertion of prosthetic lens (~2021) History of cholecystectomy (~2003) History of foot surgery (~2004) History of fundoplication (~2012) Family History Father Cancer Mother Cancer Social History details: (Otoniel), 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, retired sex offender counselling, eclectic household members: spouse Smoking Status: Never smoker alcohol intake: never Meds Home Medications and Allergies Home Medications Medication Instructions Recorded Confirmed Type cholecalciferol (vitamin D3) 50 50 mcg PO DAILY 02/21/21 11/30/22 History mcg (2,000 unit) capsule (Vitamin D3) meloxicam 15 mg tablet 15 mg PO PRN PRN Pain (Scale Score 02/21/21 11/30/22 History 1-3) methotrexate sodium 2.5 mg tablet 17.5 mg PO WEEKLY 02/07/22 11/30/22 History atorvastatin 10 mg tablet 10 mg PO DAILY 05/23/22 11/30/22 History omeprazole 40 mg capsule,delayed 40 mg PO BID #60 caps 09/23/22 11/30/22 Rx release coenzyme Q10 100 mg capsule 100 mg PO DAILY 09/28/22 11/30/22 History (CoQ-10) cyanocobalamin (vitamin B-12) 1,000 mcg PO DAILY 09/28/22 11/30/22 History 1,000 mcg capsule cyclobenzaprine 5 mg tablet 5 mg PO DAILY PRN muscle spasm 09/28/22 11/30/22 History escitalopram oxalate 20 mg tablet 20 mg PO DAILY 09/28/22 11/30/22 History fluticasone propionate 115 2 puff inhalation BID PRN Breathig 09/28/22 11/30/22 History mcg-salmeterol 21 mcg/actuation issues HFA inhaler (Advair HFA) Allergies Allergy/AdvReac Type Severity Reaction Status Date / Time No Known Drug Allergies Allergy Verified 11/30/22 07:49 Exam Narrative Exam Narrative: Oropharynx free of lesions Chest clear to auscultation percussion Cardiac exam reveals no S3 or murmur Assessment & Plan Assessment & Plan narrative: Recurrent reflux symptoms post fundoplication over 10 years ago. Rule out breakdown of the wrap. Rule out erosive disease. Risks benefits and alternatives have been explained.
--- NOTE | 2023-02-06 09:46 | P.OP.EGD_ITS ---
Operative Date/Time/Diagnoses Date of procedure: 02/06/23 Pre-op diagnosis: See indication and findings Procedure & Clinicians Study performed: EGD Indications: Recurrent reflux symptoms post fundoplication 2011 Surgeon: Phillip Urrutia Procedure Notes Procedure in detail: After informed consent was obtained the patient was placed in left lateral decubitus position. The video upper scope was placed into the oropharynx and with the patient's help swallowed into the esophagus. The esophagus stomach and duodenum were carefully examined. On withdrawal, retroflexed view the GE junction was performed. The scope was removed. The patient tolerated procedure well. Blood loss none Complications none Sedation mac Findings 1. Normal appearing GE junction with no evidence of failure of the wrap. Squamocolumnar junction was intact and fairly regular. Retroflexed view the GE junction showed the wrap to be intact 2. Striped gastric erythema biopsies taken to rule out Helicobacter Three. Normal duodenal bulb and sweep I will leave it up to her diet technician registered as to whether he wants to pursue consultation with Dr. Dodge.
[2023-02-06] MEDS: LACTATED RINGERS 1,000 ML 125 ML IV (09:49)
[2023-02-06 10:41] VITALS: BP 147/88; PULSE 88; RESP 23; TEMP 36.7; O2SAT 85
[2023-02-06 10:45] VITALS: BP 105/68; PULSE 68; RESP 20; O2SAT 95
[2023-02-06 10:50] VITALS: BP 99/69; PULSE 74; RESP 19; O2SAT 93
[2023-02-06 10:53] VITALS: BP 107/75; PULSE 70; RESP 17; TEMP 36.7; O2SAT 94
[2023-02-06 11:25] VITALS: BP 114/80; PULSE 60; RESP 14; TEMP 36.3; O2SAT 98
== END 2023-02-06 11:34 | disposition home or self-care (01) ==
PROVIDERS: Family Provider Physician Assistant; PCP Internal Medicine; Referring Provider Internal Medicine Gastroenterology; Visit Provider Internal Medicine Gastroenterology
PROC: 0DJ08ZZ Inspection of Upper Intestinal Tract, Via Natural or Artificial Opening Endoscopic (ICD-10-PCS; CPT 43235; principal; 2023-02-06 10:30)
DX: K21.9 Gastro-esophageal reflux disease without esophagitis (principal); K31.9 Disease of stomach and duodenum, unspecified
CPT/HCPCS: 43239; J2704

== ENCOUNTER → 2023-04-01 16:40 | Outpatient (CLI) | payer MEDICARE, SELFPAY ==
--- NOTE | 2023-04-01 16:41 | DI.US.S_ITS ---
PROCEDURE: US SOFT TISSUE HEAD AND NECK INDICATIONS: LEFT PALPABLE AREA AND LEFT NECK PAIN TECHNIQUE: Real-time scanning was performed of the neck region of interest, with image documentation. COMPARISON: None. FINDINGS: There are no sonographic abnormalities in the region palpated by the patient. The patient appears to be palpating in the region of the left carotid bulb. The right neck was also interrogated and has a normal sonographic appearance. IMPRESSION: No suspicious sonographic abnormalities in the region palpated by the patient. No findings to explain patient's pain. Dictated by: Kemi Lepe M.D. on 04/01/2023 at 17:24 Approved by: Kemi Lepe M.D. on 04/01/2023 at 17:25
== END ==
PROVIDERS: Family Provider Physician Assistant; PCP Internal Medicine; Referring Provider Family Medicine; Visit Provider Family Medicine
DX: M54.2 Cervicalgia (principal)
CPT/HCPCS: 76536

== ENCOUNTER → 2023-07-02 11:52 | Outpatient (CLI) | payer MEDICARE, SELFPAY ==
--- NOTE | 2023-07-02 11:54 | DI.US.S_ITS ---
LIMITED ULTRASOUND OF LEFT BREAST: 07/02/2023 CLINICAL: Palpable left breast lumps. Comparison is made to exams dated: 07/02/2023 mammogram, 06/01/2022 mammogram, 05/04/2021 mammogram, and 04/25/2020 mammogram - [facility]. Real-time ultrasound of the left breast 2 o'clock, 6 o'clock, and 12 o'clock regions was performed. Oreilly scale images of the real-time examination were reviewed. No significant abnormalities were seen sonographically in the left breast. IMPRESSION: NEGATIVE There is no sonographic evidence of malignancy. There are no abnormalities seen in the left breast to correspond with the palpable nodularities, however, clinical followup is recommended. Return to annual mammogram screening schedule is recommended. This exam was interpreted at Station ID: [id number]. Electronically Signed By: Yinka del castillo/eduar:07/02/2023 20:40:30 Ultrasound BI-RADS: 1 Negative
--- NOTE | 2023-07-02 11:54 | DI.US.S_ITS ---
LIMITED ULTRASOUND OF RIGHT BREAST: 07/02/2023 CLINICAL: Nipple discharge, right breast, not bloody. Comparison is made to exams dated: 07/02/2023 mammogram, 06/01/2022 mammogram, 05/04/2021 mammogram, and 04/25/2020 mammogram - [facility]. Real-time ultrasound of the right breast retroareolar was performed. Oreilly scale images of the real-time examination were reviewed. No significant abnormalities were seen sonographically in the right breast. IMPRESSION: NEGATIVE There is no sonographic evidence of malignancy. There is no abnormality seen in the right breast to correspond with the non-bloody discharge from the nipple, however, clinical followup is recommended. Return to annual mammogram screening schedule is recommended. This exam was interpreted at Station ID: [id number]. Electronically Signed By: Yinka del castillo/eduar:07/02/2023 20:36:52 letter sent: Clinical Evaluation Ultrasound BI-RADS: 1 Negative
--- NOTE | 2023-07-02 11:54 | DI.MG.S_ITS ---
BILATERAL DIGITAL DIAGNOSTIC MAMMOGRAM 3D/2D: 07/02/2023 CLINICAL: Left breast mass and Right nipple discharge. Comparison is made to exams dated: 06/01/2022 mammogram, 05/04/2021 mammogram, and 04/25/2020 mammogram - [facility]. There are scattered areas of fibroglandular density in both breasts (category b / 25%-50% glandular tissue). No significant masses, calcifications, or other findings are seen in either breast. IMPRESSION: INCOMPLETE: NEEDS ADDITIONAL IMAGING EVALUATION There are no abnormalities seen in the left breast to correspond with the palpable nodularities, however, ultrasound is recommended. There is no abnormality seen in the right breast to correspond with the non-bloody discharge from the nipple, however, ultrasound is recommended. Based on the Tyrer Cuzick model (a risk assessment model) the patient's lifetime risk is 5.3% and her 10 year risk is 5.3%. According to the ACR, ACS, and NCCN guidelines, an annual breast MRI exam along with mammogram is recommended if the patient's lifetime risk is 20% or greater. This exam was interpreted at Station ID: [id number]. NOTE: For mammograms, a report in lay terms will be sent to the patient. Approximately 15% of breast malignancies will not be visualized mammographically. In the management of a palpable breast mass, a negative mammogram must not discourage biopsy of a clinically suspicious lesion. Electronically Signed By: Yinka del castillo/eduar:07/02/2023 20:35:40 ACR BI-RADS Category 0: Incomplete [id number]
== END ==
PROVIDERS: Family Provider Physician Assistant; PCP Internal Medicine; Referring Provider Physician Assistant; Visit Provider Physician Assistant
DX: R92.2 Inconclusive mammogram; R92.323 Mammographic fibroglandular density, bilateral breasts; N63.20 Unspecified lump in the left breast, unspecified quadrant; N64.52 Nipple discharge
CPT/HCPCS: 76642; 77066; G0279

== ENCOUNTER → 2023-07-16 07:54 | Outpatient (CLI) | payer MEDICARE, SELFPAY ==
[2023-07-16 09:34] LABS: Add Manual Diff / Slide Review NO; Basophils Absolute Auto 0 /uL (0-100); Basophils Percent Auto 0.8 % (0-2); Eosinophils Absolute Auto 400 /uL (0-450); Eosinophils Percent Auto 7.4 % (2-4); Hematocrit 37.2 % (36-46); Hemoglobin 12.5 g/dL (12.0-16.0); Lymphocytes Absolute Auto 2000 /uL (1100-4500); Lymphocytes Percent Auto 39.7 % (25-40); Mean Corpuscular HGB Conc 33.8 % (30-36); Mean Corpuscular Volume 97.8 fL (80-100); Monocytes Absolute Auto 400 /uL (0-900); Monocytes Percent Auto 7.9 % (3-14); Neutrophils Absolute Auto 2300 /uL (1500-7000); Neutrophils Percent Auto 44.2 % (50-75); Platelet Count 178 X10^3/uL (150-400); Red Cell Distribution Width 13.5 % (11.6-14.8); White Blood Cell Count 5.1 X10^3/uL (4.5-11.0)
[2023-07-16 10:51] LABS: TSH w/ Reflex to FT4 3.75 uIU/mL (0.47-4.68)
== END ==
LOC: LAB 07:56
PROVIDERS: Family Provider Physician Assistant; PCP Internal Medicine; Referring Provider Physician Assistant; Visit Provider Physician Assistant
DX: N64.52 Nipple discharge (principal)
CPT/HCPCS: 36415; 84146; 84443; 85025

== ENCOUNTER 2023-08-02 16:31 | Emergency (ER) | payer MEDICARE, SELFPAY ==
[2023-08-02] VITALS (7 sets, daily range): BP systolic 106–143; BP diastolic 65–90; PULSE 78–100; RESP 14–22; TEMP 36.4; O2SAT 97–99; BMI 25.0
--- NOTE | 2023-08-02 16:48 | DI.RAD.S_ITS ---
PROCEDURE: XR CHEST 1V INDICATIONS: chest pain TECHNIQUE: One view of the chest was acquired. COMPARISON: [facility], CR, XR CHEST 1V, 09/23/2022, 11:25. FINDINGS: Surgical changes and devices: None. Lungs and pleura: Lungs are clear. No pleural effusions or pneumothorax. Mediastinum: Mediastinal contours appear normal. Heart size is normal. Bones and chest wall: No suspicious bony lesions. Overlying soft tissues appear unremarkable. IMPRESSION: No acute cardiopulmonary pathology. Dictated by: Zaheer Suggs M.D. on 08/02/2023 at 17:11 Approved by: Zaheer Suggs M.D. on 08/02/2023 at 17:12
[2023-08-02 17:10] LABS: Add Manual Diff / Slide Review NO; Basophils Absolute Auto 0 /uL (0-100); Basophils Percent Auto 0.8 % (0-2); Eosinophils Absolute Auto 300 /uL (0-450); Eosinophils Percent Auto 5.1 % (2-4); Hematocrit 36.3 % (36-46); Hemoglobin 12.2 g/dL (12.0-16.0); Lymphocytes Absolute Auto 2500 /uL (1100-4500); Lymphocytes Percent Auto 40.5 % (25-40); Mean Corpuscular HGB Conc 33.7 % (30-36); Mean Corpuscular Hemoglobin 32.3 PG (26-34); Mean Corpuscular Volume 95.9 fL (80-100); Monocytes Absolute Auto 400 /uL (0-900); Monocytes Percent Auto 6.2 % (3-14); Neutrophils Absolute Auto 2900 /uL (1500-7000); Neutrophils Percent Auto 47.4 % (50-75); Platelet Count 195 X10^3/uL (150-400); Red Blood Cell Count 3.78 X10^6/uL (4.0-5.2); Red Cell Distribution Width 13.6 % (11.6-14.8); White Blood Cell Count 6.1 X10^3/uL (4.5-11.0)
[2023-08-02 17:12] LABS: INR 0.9 (0.9-1.3); Prothrombin Time 10.7 SECONDS (9.4-12.5)
[2023-08-02 17:15] LABS: PTT Partial Thromboplastin Tim 46 SECONDS (25.1-36.5)
[2023-08-02 17:19] LABS: Alanine Aminotransferase 34 IU/L (<35); Albumin 4.2 g/dL (3.5-5.0); Albumin Globulin Ratio 1.4 (1.0-2.8); Alkaline Phosphatase 75 U/L (38-126); Aspartate Aminotransferase 45 IU/L (14-36); BUN Creatinine Ratio 19.2 (6-22); Bilirubin Total 0.5 mg/dL (0.2-1.3); Blood Urea Nitrogen 20 mg/dL (7-17); Calcium 9.4 mg/dL (8.4-10.2); Carbon Dioxide 27 mmol/L (22-32); Chloride 102 mmol/L (98-107); Creatine Kinase 118 U/L (30-135); Estimated Glomerular Filt Rate 56 mL/min (>60); Globulin 3.1 g/dL (1.7-4.1); Glucose 97 mg/dL (80-110); HEMOLYSIS < 15 (0-50); Lipase 72 U/L (23-300); Potassium 3.8 mmol/L (3.4-5.1); Sodium 138 mmol/L (137-145); Total Protein 7.3 g/dL (6.3-8.2)
--- NOTE | 2023-08-02 17:21 | ED_ITS ---
HPI - Arrhythmia/Palpitations <Ingrid Smallwood MD - Last Filed: 08/03/23 07:17> General Chief Complaint: Arrhythmia/Palpitations Stated Complaint: pulse up to 130/irregular/SOB Time Seen by Provider: 08/02/23 16:43 Source: patient Mode of arrival: Family Vehicle History of Present Illness HPI narrative: 73-year-old female with history of hyperlipidemia, fibromyalgia presents by private vehicle from home for elevated heart rate. Patient states that for the last 3 weeks she will have random elevations in her heart rate, however these will spontaneously resolve after several minutes. She decided to come in today because the elevation in heart rate lasted longer than usual and she felt very poorly and weak all over. Currently on finance insurance manager, pulse rate 88 beats per minute. Related Data Home Medications Medication Instructions Recorded Confirmed cholecalciferol (vitamin D3) 50 50 mcg PO DAILY 02/21/21 06/20/23 mcg (2,000 unit) capsule (Vitamin D3) methotrexate sodium 2.5 mg tablet 17.5 mg PO WEEKLY 02/07/22 06/20/23 cyanocobalamin (vitamin B-12) 1,000 mcg PO DAILY 09/28/22 06/20/23 1,000 mcg capsule cyclobenzaprine 5 mg tablet 5 mg PO DAILY PRN muscle spasm 09/28/22 06/20/23 folic acid 1 mg tablet 1 mg PO DAILY 02/11/23 06/20/23 Previous Rx's Medication Instructions Recorded omeprazole 40 mg capsule,delayed 40 mg PO BID #60 caps 09/23/22 release atorvastatin 10 mg tablet 10 mg PO DAILY #90 tabs 02/27/23 duloxetine 20 mg capsule,delayed 60 mg (3 x 20 mg) PO DAILY #270 05/31/23 release caps Allergies Allergy/AdvReac Type Severity Reaction Status Date / Time No Known Drug Allergies Allergy Verified 06/20/23 13:45 Review of Systems <Ingrid Smallwood MD - Last Filed: 08/03/23 07:17> Review of Systems Narrative: negative except as noted above Patient History <Ingrdi Smallowod MD - Last Filed: 08/03/23 07:17> Medical History Left breast mass Right rotator cuff tendonitis Fibromyalgia Abnormal chest xray Osteopenia (~2021) Ankle fracture, left (~2013) Foot pain (~1998) Rheumatic fever Measles Hepatitis A (~1966) Chicken pox Bronchiectasis Asthma, mild intermittent History of DVT (deep vein thrombosis) Interstitial lung disease (~2020) Slow transit constipation Depression, major, recurrent GERD without esophagitis (~1995) Sjogren syndrome with inflammatory arthritis (~2020) Mixed hyperlipidemia Hepatitis B core antibody positive Low vitamin D level Liver enzyme elevation History of anemia Surgical History Anesthesia History of fundoplication (~2012) History of foot surgery (~2004) H/O exploratory laparotomy (~1969) History of appendectomy (~1967) History of cholecystectomy (~2003) History of cataract removal with insertion of prosthetic lens (~2021) Family History Father Cancer Mother Cancer Social History details: (Otoniel), 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, retired sex offender counselling, eclectic household members: spouse Smoking Status: Never smoker alcohol intake: current Smoking Status: Never smoker alcohol intake frequency: holidays/special occasions only Substance Use Type: does not use Exam <Ingrid Smallwood MD - Last Filed: 08/03/23 07:17> Initial Vital Signs Initial Vital Signs: Vital Signs Temperature 97.5 F L 08/02/23 16:40 Pulse Rate 100 H 08/02/23 16:40 Respiratory Rate 22 08/02/23 16:40 Blood Pressure 143/90 H 08/02/23 16:40 Pulse Oximetry 98 08/02/23 16:40 Oxygen Delivery Method Room Air 08/02/23 16:40 Const: Awake, alert, no acute distress, nontoxic appearing Eyes: PERRL, EOMI, conjunctiva normal ENT: Atraumatic, dentition normal, mucous membranes moist Cardiac: regular rate, regular rhythm RESP: unlabored, clear bilaterally, no wheezing GI: Atraumatic, soft, nontender, nondistended, no rebound, no guarding MSK: Atraumatic, full range of motion, pulses equal Skin: Warm, Dry, intact, no rashes Neuro: AO x3, CN II-XII grossly intact, moves all extremities Psych: affect normal, mood normal, not suicidal, not homicidal <Ranulfo Gómez DO - Last Filed: 08/02/23 18:53> Initial Vital Signs Initial Vital Signs: Vital Signs Temperature 97.5 F L 08/02/23 16:40 Pulse Rate 100 H 08/02/23 16:40 Respiratory Rate 22 08/02/23 16:40 Blood Pressure 143/90 H 08/02/23 16:40 Pulse Oximetry 98 08/02/23 16:40 Oxygen Delivery Method Room Air 08/02/23 16:40 Scores <Ingrid Smallwood MD - Last Filed: 08/03/23 07:17> CHADS-VASc Congestive heart failure: no Hypertension: no Age 75 years or older: yes Diabetes mellitus: no Stroke, TIA, or TE: no Vascular disease: no Age 65 to 74 years: no Sex category (female): Female CHADS-VASc Score: 3 <Ranulfo Gómez DO - Last Filed: 08/02/23 18:53> CHADS-VASc CHADS-VASc Score: 3 Course <Ingrid Smallwood MD - Last Filed: 08/03/23 07:17> Orders Ordered: Discontinued Medications Aspirin (Aspirin 81 Mg Chew Tab) 324 mg PO NOW ONE Stop: 08/02/23 16:49 Vital Signs Vital signs: Vital Signs - 8 hr 08/02/23 16:40 08/02/23 16:47 08/02/23 17:00 Temperature 97.5 F L Pulse Rate 100 H 85 88 Respiratory Rate 22 14 16 Blood Pressure 143/90 H 143/75 H 132/78 Pulse Oximetry 98 99 98 Oxygen Delivery Method Room Air Room Air Room Air 08/02/23 17:30 08/02/23 18:00 Temperature Pulse Rate 83 80 Respiratory Rate 22 18 Blood Pressure 116/70 110/70 Pulse Oximetry 98 98 Oxygen Delivery Method Room Air Room Air <Ranulfo Gómez DO - Last Filed: 08/02/23 18:53> Orders Ordered: Discontinued Medications Aspirin (Aspirin 81 Mg Chew Tab) 324 mg PO NOW ONE Stop: 08/02/23 16:49 Vital Signs Vital signs: Vital Signs - 8 hr 08/02/23 16:40 08/02/23 16:47 08/02/23 17:00 Temperature 97.5 F L Pulse Rate 100 H 85 88 Respiratory Rate 22 14 16 Blood Pressure 143/90 H 143/75 H 132/78 Pulse Oximetry 98 99 98 Oxygen Delivery Method Room Air Room Air Room Air 08/02/23 17:30 08/02/23 18:00 Temperature Pulse Rate 83 80 Respiratory Rate 22 18 Blood Pressure 116/70 110/70 Pulse Oximetry 98 98 Oxygen Delivery Method Room Air Room Air MDM - Arrhythmia/Palpitations <Ingrid Smallwood MD - Last Filed: 08/03/23 07:17> Differential Diagnosis Differential diagnosis: Likely palpitations, anxiety and sinus tachycardia Lab Data 08/02/23 16:55 08/02/23 16:55 Labs: Lab Results 08/02/23 Range/Units 16:55 WBC 6.1 (4.5-11.0) X10^3/uL RBC 3.78 L (4.0-5.2) X10^6/uL Hgb 12.2 (12.0-16.0) g/dL Hct 36.3 (36-46) % MCV 95.9 (80-100) fL MCH 32.3 (26-34) PG MCHC 33.7 (30-36) % RDW 13.6 (11.6-14.8) % Plt Count 195 (150-400) X10^3/uL Neut % (Auto) 47.4 L (50-75) % Lymph % (Auto) 40.5 H (25-40) % Canadian % (Auto) 6.2 (3-14) % Eos % (Auto) 5.1 H (2-4) % Baso % (Auto) 0.8 (0-2) % Neut # (Auto) 2900 (6962-3431) /uL Lymph # (Auto) 2500 (6327-9496) /uL Canadian # (Auto) 400 (0-900) /uL Eos # (Auto) 300 (0-450) /uL Baso # (Auto) 0 (0-100) /uL PT 10.7 (9.4-12.5) SECONDS INR 0.9 (0.9-1.3) APTT 46 H (25.1-36.5) SECONDS Sodium 138 (137-145) mmol/L Potassium 3.8 (3.4-5.1) mmol/L Chloride 102 (98-107) mmol/L Carbon Dioxide 27 (22-32) mmol/L BUN 20 H (7-17) mg/dL Creatinine 1.04 (0.52-1.04) mg/dL Estimated GFR 56 L (>60) mL/min BUN/Creatinine Ratio 19.2 (6-22) Glucose 97 (80-110) mg/dL Calcium 9.4 (8.4-10.2) mg/dL Magnesium 2.0 (1.6-2.3) mg/dL Total Bilirubin 0.5 (0.2-1.3) mg/dL AST 45 H (14-36) IU/L ALT 34 (<35) IU/L Alkaline Phosphatase 75 (38-126) U/L Total Creatine Kinase 118 (30-135) U/L Troponin I < 0.012 (0.01-0.034) ng/mL Total Protein 7.3 (6.3-8.2) g/dL Albumin 4.2 (3.5-5.0) g/dL Globulin 3.1 (1.7-4.1) g/dL Albumin/Globulin Ratio 1.4 (1.0-2.8) Lipase 72 (23-300) U/L TSH 3.50 (0.47-4.68) uIU/mL ECG Data Interpretation: normal sinus rhythm, rate 83bpm, normal intervals, normal axis, no ST-T wave changes MDM Narrative Medical decision making narrative: Well appearing patient with 3 weeks of intermittent tachycardia. Currently normal sinus rhythm in ED. Will place on finance insurance manager and obtain cardiac workup.... Laboratory work is reviewed, so far unremarkable. Chest x-ray negative for acute findings. No cardiac events noted on the monitor. We will continue to observe on finance insurance manager to see if any events occur. Care of patient is signed over to Dr. Gómez at 1800 <Ranulfo Gómez DO - Last Filed: 08/02/23 18:53> Lab Data Labs: Lab Results 08/02/23 Range/Units 16:55 WBC 6.1 (4.5-11.0) X10^3/uL RBC 3.78 L (4.0-5.2) X10^6/uL Hgb 12.2 (12.0-16.0) g/dL Hct 36.3 (36-46) % MCV 95.9 (80-100) fL MCH 32.3 (26-34) PG MCHC 33.7 (30-36) % RDW 13.6 (11.6-14.8) % Plt Count 195 (150-400) X10^3/uL Neut % (Auto) 47.4 L (50-75) % Lymph % (Auto) 40.5 H (25-40) % Canadian % (Auto) 6.2 (3-14) % Eos % (Auto) 5.1 H (2-4) % Baso % (Auto) 0.8 (0-2) % Neut # (Auto) 2900 (6936-0075) /uL Lymph # (Auto) 2500 (6599-1443) /uL Canadian # (Auto) 400 (0-900) /uL Eos # (Auto) 300 (0-450) /uL Baso # (Auto) 0 (0-100) /uL PT 10.7 (9.4-12.5) SECONDS INR 0.9 (0.9-1.3) APTT 46 H (25.1-36.5) SECONDS Sodium 138 (137-145) mmol/L Potassium 3.8 (3.4-5.1) mmol/L Chloride 102 (98-107) mmol/L Carbon Dioxide 27 (22-32) mmol/L BUN 20 H (7-17) mg/dL Creatinine 1.04 (0.52-1.04) mg/dL Estimated GFR 56 L (>60) mL/min BUN/Creatinine Ratio 19.2 (6-22) Glucose 97 (80-110) mg/dL Calcium 9.4 (8.4-10.2) mg/dL Magnesium 2.0 (1.6-2.3) mg/dL Total Bilirubin 0.5 (0.2-1.3) mg/dL AST 45 H (14-36) IU/L ALT 34 (<35) IU/L Alkaline Phosphatase 75 (38-126) U/L Total Creatine Kinase 118 (30-135) U/L Troponin I < 0.012 (0.01-0.034) ng/mL Total Protein 7.3 (6.3-8.2) g/dL Albumin 4.2 (3.5-5.0) g/dL Globulin 3.1 (1.7-4.1) g/dL Albumin/Globulin Ratio 1.4 (1.0-2.8) Lipase 72 (23-300) U/L TSH 3.50 (0.47-4.68) uIU/mL MDM Narrative Medical decision making narrative: Well appearing patient with 3 weeks of intermittent tachycardia. Currently normal sinus rhythm in ED. Will place on finance insurance manager and obtain cardiac workup.... Laboratory work is reviewed, so far unremarkable. Chest x-ray negative for acute findings. No cardiac events noted on the monitor. We will continue to observe on finance insurance manager to see if any events occur. Care of patient is signed over to Dr. Gómez at [address] Dr Gómez: Received turned over. Reviewed patient's history and physical and workup up to this point. Patient has had sinus rhythm with a heart rate less than 100 since arrival here in the ER. Labs are unremarkable. She states at 1 point she thought maybe she was having the palpitations but nothing was happening on the monitor that time. Advised the patient that she needed to talk with her primary doctor about further workup into discuss the indications for a Holter monitor. I do feel holding on any medications for now would be beneficial as to not mask any potential arrhythmias on the Holter monitor. She was given return precautions. She expressed understanding and agreement. Discharge Plan Departure Patient Disposition: Home Clinical Impression: Palpitations Instructions: Arrhythmias Activity Restrictions/Additional Instructions: I do recommend that you contact your primary care provider to discuss the indications for a Holter monitor. Continue to take all of your medications as directed. Return to the emergency department for new or worsening symptoms like we discussed. Prescriptions: No Action duloxetine 20 mg capsule,delayed release(DR/EC) 60 mg PO DAILY Qty: 270 3RF Rx Instructions: Dose increased. atorvastatin 10 mg tablet 10 mg PO DAILY Qty: 90 3RF folic acid 1 mg tablet 1 mg PO DAILY cyanocobalamin (vitamin B-12) 1,000 mcg capsule 1,000 mcg PO DAILY omeprazole 40 mg capsule,delayed release(DR/EC) 40 mg PO BID Qty: 60 0RF cholecalciferol (vitamin D3) [Vitamin D3] 50 mcg (2,000 unit) Capsule 50 mcg PO DAILY methotrexate sodium 2.5 mg tablet 17.5 mg PO WEEKLY cyclobenzaprine 5 mg tablet 5 mg PO DAILY PRN (Reason: muscle spasm) Referrals: Darren Razo MD [Primary Care Provider] - Stand Alone Forms: Patient Portal/API
[2023-08-02 17:30] LABS: Troponin I < 0.012 ng/mL (0.01-0.034)
== END 2023-08-02 19:06 | disposition home or self-care (01) ==
PROVIDERS: Emergency Medicine; Emergency Provider Emergency Medicine; Family Provider Physician Assistant; PCP Internal Medicine
DX: R00.2 Palpitations (principal)
CPT/HCPCS: 36415; 71045; 80053; 82550; 83690; 83735; 84443; 84484; 85025; 85610; 85730; 93005; 93010; 99283; 99284

== ENCOUNTER → 2023-08-07 10:27 | Outpatient (CLI) | payer MEDICARE, SELFPAY | PROVIDERS: Family Provider Physician Assistant; PCP Internal Medicine; Referring Provider Internal Medicine; Visit Provider Internal Medicine | DX: R00.2 Palpitations (principal) | CPT/HCPCS: 93242 ==

== ENCOUNTER → 2024-02-20 09:18 | Outpatient (CLI) | payer MEDICARE, SELFPAY ==
[2024-02-20 10:04] LABS: Add Manual Diff / Slide Review NO; Basophils Absolute Auto 0 /uL (0-100); Basophils Percent Auto 0.9 % (0-2); Eosinophils Absolute Auto 400 /uL (0-450); Eosinophils Percent Auto 8.8 % (2-4); Hematocrit 36.8 % (36-46); Hemoglobin 12.5 g/dL (12.0-16.0); Lymphocytes Absolute Auto 1700 /uL (1100-4500); Mean Corpuscular HGB Conc 34.1 % (30-36); Mean Corpuscular Hemoglobin 32.6 PG (26-34); Mean Corpuscular Volume 95.4 fL (80-100); Monocytes Absolute Auto 400 /uL (0-900); Monocytes Percent Auto 7.5 % (3-14); Neutrophils Absolute Auto 2400 /uL (1500-7000); Neutrophils Percent Auto 48.8 % (50-75); Platelet Count 196 X10^3/uL (150-400); Red Blood Cell Count 3.85 X10^6/uL (4.0-5.2); Red Cell Distribution Width 12.8 % (11.6-14.8); White Blood Cell Count 4.9 X10^3/uL (4.5-11.0)
[2024-02-20 10:34] LABS: C-Reactive Protein Quant < 0.5 mg/dL (<1.0)
[2024-02-20 10:48] LABS: Erythrocyte Sedimentation Rate 36 MM/HR (0-20)
== END ==
PROVIDERS: Family Provider Physician Assistant; PCP Internal Medicine; Referring Provider Orthopaedic Surgery; Visit Provider Orthopaedic Surgery
DX: Z96.651 Presence of right artificial knee joint (principal)
CPT/HCPCS: 36415; 85025; 85651; 86140

== ENCOUNTER → 2024-05-07 14:26 | Outpatient (CLI) | payer MEDICARE, SELFPAY | PROVIDERS: Family Provider Physician Assistant; PCP Internal Medicine; Referring Provider Internal Medicine Critical Care Medicine; Visit Provider Internal Medicine Critical Care Medicine | DX: R06.02 Shortness of breath (principal); R94.2 Abnormal results of pulmonary function studies; Z87.09 Personal history of other diseases of the respiratory system | CPT/HCPCS: 94060; 94726; 94729 ==

== ENCOUNTER → 2024-05-26 07:48 | Outpatient (CLI) | payer MEDICARE, SELFPAY ==
--- NOTE | 2024-05-26 07:49 | DI.ECHO.S_ITS ---
[facility] : : [id number] : : [place] : : [id number] : : Phone: [phone] Echocardiogram Report + + :Name: ASHER RODRIGUEZ Study Date: 05/26/2024 Height: 65.5 in: :[facility] ReadingLocation: Weight: 160 lb : : Gender: Female BSA: 1.8 m2 : :: 1950 Age: 74 yrs BP: 129/89 mmHg: :Reason For Study: SHORTNESS OF BREATH : :Ordering Physician: YANG, : :LAN Performed By: Mariel Joyce : :Referring: LAN SORIA : + + Interpretation Summary The ejection fraction is estimated to be 55-60%. Diastolic parameters suggest probable normal left ventricular diastolic function and normal filling pressures. The right ventricle is normal in size and function. No significant valvular abnormalities. Pulmonary artery pressures cannot be estimated because of the lack of a measurable TR jet velocity but the IVC suggests a CVP of around 3 mmHg. Compared to the prior study dated 07/03/2021, no significant change. Procedure: A two-dimensional transthoracic echocardiogram with color flow and Doppler was performed. The study quality was technically adequate. Comparison is made with the echocardiogram of 07/03/2021. The patient was in sinus rhythm with heart rates between 59-71 bpm during the exam. Left Ventricle: The left ventricle is normal in size and wall thickness. The ejection fraction is estimated to be 55-60%. Diastolic parameters suggest probable normal left ventricular diastolic function and normal filling pressures. Right Ventricle: The right ventricle is normal in size and function. Atria: The left atrial size is normal. Right atrial size is normal. There is no Doppler evidence for an interatrial shunt. Mitral Valve: The mitral valve is normal in structure and function. There is trace mitral regurgitation. Aortic Valve: The aortic valve is trileaflet. The aortic valve opens well. There is mild aortic valve sclerosis. There is no aortic valve stenosis. No aortic regurgitation is present. Tricuspid Valve: The tricuspid valve is normal in structure and function. There is trace tricuspid regurgitation. Pulmonary artery pressures cannot be estimated because of the lack of a measurable TR jet velocity but the IVC suggests a CVP of around 3 mmHg. Pulmonic Valve: The pulmonic valve leaflets are thin and pliable; valve motion is normal. There is mild pulmonic regurgitation. Great Vessels: The aortic root is normal size. The dimensions of the ascending aorta are normal. The IVC is of normal diameter and collapses greater than 50% with a sniff. This suggests a low right atrial pressure of 3 mm Hg. Pericardium/ Pleura There is no pericardial effusion. There is no pleural effusion. MMode/2D Measurements & Calculations LVIDd: 4.1 cm LVOT diam: 2.1 cm LVIDs: 2.8 cm Ao root diam: 2.8 cm FS: 31.4 % asc Aorta Diam: 3.2 cm IVSd: 0.82 cm Ao Arch Diam (Prox Trans): 2.7 cm LVPWd: 0.78 cm LV lipscomb. diameter/BSA (cm/m^2): 2.3 LV sys. diameter/BSA (cm/m^2): 1.6 LA A2 area: 16.6 cm2 RA long axis: 5.0 cm LA A4 area: 16.6 cm2 RA area: 14.9 cm2 LA length (vol): 4.4 cm RA vol: 38.1 ml LA vol: 53.6 ml RA : 21.0 ml/m2 LA vol index: 29.6 ml/m2 IVC diam: 1.6 cm RVD1 (basal): 3.3 cm RVD2 (mid): 2.8 cm TAPSE: 1.8 cm Doppler Measurements & Calculations Ao V2 max: 108.3 cm/sec LVOT Max King: 88.8 cm/sec Ao V2 mean: 72.3 cm/sec LV V1 max P.2 mmHg Ao max P.7 mmHg LV V1 VTI: 18.7 cm Ao mean P.4 mmHg JENNIFER(I,D): 3.1 cm2 Ao V2 VTI: 21.5 cm JENNIFER(V,D): 2.9 cm2 sev ratio: 0.87 JENNIFER indexed to BSA (cm^2/m^2): 1.7 MV E max king: 56.2 cm/sec PA pr(Accel): 34.5 mmHg MV A max king: 80.5 cm/sec MV E/A: 0.70 Med Peak E' King: 5.9 cm/sec E/E' med: 9.5 Lat Peak E' King: 6.7 cm/sec E/E' lat: 8.3 E/e' average: 8.9 MV dec time: 0.18 sec SV(LVOT): 66.1 ml Reading Physician:09:49 AM
== END ==
PROVIDERS: Family Provider Physician Assistant; PCP Internal Medicine; Referring Provider Internal Medicine Critical Care Medicine; Visit Provider Internal Medicine Critical Care Medicine
DX: I35.8 Other nonrheumatic aortic valve disorders (principal); I37.1 Nonrheumatic pulmonary valve insufficiency; R06.02 Shortness of breath; J84.9 Interstitial pulmonary disease, unspecified; J45.20 Mild intermittent asthma, uncomplicated
CPT/HCPCS: 93306; 99214

== ENCOUNTER → 2024-05-29 06:58 | Outpatient (CLI) | payer MEDICARE, SELFPAY ==
--- NOTE | 2024-05-29 06:59 | DI.CT.S_ITS ---
PROCEDURE: CT CHEST HIGH RESOLUTION INDICATIONS: possible ILD TECHNIQUE: Noncontrast 1.0 and 5.0 mm thick contiguous axial sections from the pulmonary apex to the posterior costophrenic angles, with 7 mm thick coronal and sagittal MIP reformats. 1 mm thick dynamic expiratory images acquired through the upper, mid, and lower lungs. 1.0 mm thick axial sections acquired from the amrik to the posterior costophrenic angles in the prone end-inspiration position. For radiation dose reduction, the following was used: automated exposure control, adjustment of mA and/or kV according to patient size. COMPARISON: None. FINDINGS: Image quality: Diagnostic. Lower Neck: No enlarged lymph nodes. Thyroid: Normal CT appearance. Axillae: No enlarged lymph nodes. Chest Wall: Unremarkable. Bones: Unremarkable. Lungs and Pleura: Central and peripheral airways are normal without bronchial wall thickening or bronchiectasis. No visible endobronchial lesions. There is mild peripheral scattered mosaic attenuation in the lower lungs on exhalation images thin-walled unilocular pulmonary cyst in the right lower lobe. No dense or ground-glass opacities. No pulmonary nodules. Irregular pleural plaquing present along the right posterior lung apex with a punctate calcification. Minimal plaquing at the extreme left lung apex. No pleural effusions. No interstitial or septal thickening. No reticulation, emphysema, or honeycombing. Heart: Heart size is normal. No pericardial effusion. Mild coronary artery calcification. Thoracic Vessels: The aorta and pulmonary arteries demonstrate normal size. Mediastinum and Kika: No enlarged lymph nodes. Esophagus: No wall thickening. Small hiatal hernia. Surgical changes present at the GE junction. Upper Abdomen: Cholecystectomy. Scattered atherosclerotic calcification. Visible portions of upper abdominal organs are otherwise normal. IMPRESSION: Biapical pleural plaquing, mild. No other pulmonary findings to indicate chronic disease. Dictated by: Jes Collazo M.D. on 05/29/2024 at 10:40 Approved by: Jes Collazo M.D. on 05/29/2024 at 10:56
== END ==
PROVIDERS: Family Provider Physician Assistant; PCP Internal Medicine; Referring Provider Internal Medicine Critical Care Medicine; Visit Provider Internal Medicine Critical Care Medicine
DX: J84.9 Interstitial pulmonary disease, unspecified (principal); J92.9 Pleural plaque without asbestos; I25.10 Atherosclerotic heart disease of native coronary artery without angina pectoris; K44.9 Diaphragmatic hernia without obstruction or gangrene; Z90.49 Acquired absence of other specified parts of digestive tract
CPT/HCPCS: 71250

== ENCOUNTER → 2024-06-27 08:06 | Outpatient (CLI) | payer MEDICARE, SELFPAY ==
--- NOTE | 2024-06-27 08:07 | DI.MG.S_ITS ---
BILATERAL DIGITAL SCREENING MAMMOGRAM 3D/2D WITH CAD: 06/27/2024 CLINICAL: Routine screening. Family history of breast cancer. Comparison is made to exams dated: 07/02/2023 mammogram, 06/01/2022 mammogram, and 05/04/2021 mammogram - [facility]. There are scattered areas of fibroglandular density (category b / 25%-50% glandular tissue). Current study was also evaluated with a Computer Aided Detection (CAD) system. There is a biopsy clip in the right breast. No significant masses, calcifications, or other findings are seen in either breast. There has been no significant interval change. IMPRESSION: NEGATIVE There is no mammographic evidence of malignancy. A 1 year screening mammogram is recommended. Based on the Tyrer Cuzick model (a risk assessment model) the patient's lifetime risk is 4.9% and her 10 year risk is 0.0%. According to the ACR, ACS, and NCCN guidelines, an annual breast MRI exam along with mammogram is recommended if the patient's lifetime risk is 20% or greater. This exam was interpreted at Station ID: [id number]. NOTE: For mammograms, a report in lay terms will be sent to the patient. Approximately 15% of breast malignancies will not be visualized mammographically. In the management of a palpable breast mass, a negative mammogram must not discourage biopsy of a clinically suspicious lesion. Electronically Signed By: Jes may/eduar:06/29/2024 08:23:17 letter sent: Normal Exam ACR BI-RADS Category 1: Negative
== END ==
LOC: MAMMO 08:06
PROVIDERS: Family Provider Physician Assistant; PCP Internal Medicine; Referring Provider Internal Medicine; Visit Provider Internal Medicine
DX: Z12.31 Encounter for screening mammogram for malignant neoplasm of breast (principal); Z80.3 Family history of malignant neoplasm of breast
CPT/HCPCS: 77063; 77067

== ENCOUNTER → 2024-09-25 06:59 | Outpatient (CLI) | payer MEDICARE, SELFPAY ==
[2024-09-25 07:35] LABS: Hematocrit 39.4 % (36-46); Hemoglobin 13.2 g/dL (12.0-16.0); Mean Corpuscular HGB Conc 33.5 % (30-36); Mean Corpuscular Hemoglobin 31.9 PG (26-34); Platelet Count 188 X10^3/uL (150-400); Red Blood Cell Count 4.15 X10^6/uL (4.0-5.2); Red Cell Distribution Width 12.4 % (11.6-14.8); White Blood Cell Count 4.4 X10^3/uL (4.5-11.0)
[2024-09-25 08:07] LABS: Alanine Aminotransferase 26 IU/L (<35); Albumin 4.3 g/dL (3.5-5.0); Albumin Globulin Ratio 1.6 (1.0-2.8); Alkaline Phosphatase 74 U/L (38-126); Aspartate Aminotransferase 32 IU/L (14-36); Bilirubin Total 0.5 mg/dL (0.2-1.3); Blood Urea Nitrogen 15 mg/dL (7-17); C-Reactive Protein Quant < 0.5 mg/dL (<1.0); Calcium 9.7 mg/dL (8.4-10.2); Carbon Dioxide 27 mmol/L (22-32); Chloride 106 mmol/L (98-107); Cholesterol 259 mg/dL (140-199); Estimated Glomerular Filt Rate > 60 mL/min (>60); Globulin 2.7 g/dL (1.7-4.1); Glucose 99 mg/dL (80-110); HDL Cholesterol 87 mg/dL (40-60); HEMOLYSIS < 15 (0-50); LDL Cholesterol Calculated 158 mg/dL (<100); Potassium 4.2 mmol/L (3.4-5.1); Sodium 140 mmol/L (137-145); Triglycerides 68 mg/dL (35-150)
[2024-09-25 08:14] LABS: Erythrocyte Sedimentation Rate 33 MM/HR (0-20)
[2024-09-25 08:20] LABS: Vitamin D 25 Hydroxy (D3) 26.9 ng/mL (30.0-100.0)
[2024-09-25 08:32] LABS: TSH w/ Reflex to FT4 2.83 uIU/mL (0.47-4.68)
== END ==
PROVIDERS: Family Provider Physician Assistant; PCP Internal Medicine; Referring Provider Internal Medicine; Visit Provider Internal Medicine
DX: E78.2 Mixed hyperlipidemia (principal); R74.8 Abnormal levels of other serum enzymes; M35.05 Sjogren syndrome with inflammatory arthritis; R79.89 Other specified abnormal findings of blood chemistry
CPT/HCPCS: 36415; 80053; 80061; 82306; 84443; 85027; 85651; 86140

== ENCOUNTER → 2024-10-06 09:00 | Outpatient (CLI) | payer MEDICARE, SELFPAY ==
[2024-10-06 10:05] LABS: Influenza A - CEPHEID Flu A NEGATIVE (NEGATIVE); Influenza B - CEPHEID Flu B NEGATIVE (NEGATIVE); Respiratory Syncytial Virus Negative (Negative)
[2024-10-06 10:17] LABS: COVID-19 CEPHEID 4-PLEX PCR Negative (Negative)
== END ==
LOC: LAB 09:00
PROVIDERS: Family Provider Physician Assistant; PCP Internal Medicine; Visit Provider Nurse Practitioner Family
DX: R05.1 Acute cough (principal)
CPT/HCPCS: 0241U

== ENCOUNTER → 2024-10-06 09:30 | Outpatient (CLI) | payer MEDICARE, SELFPAY ==
--- NOTE | 2024-10-06 09:32 | DI.RAD.S_ITS ---
PROCEDURE: XR CHEST 2V INDICATIONS: Cough TECHNIQUE: 2 views of the chest were acquired. COMPARISON: [facility], CR, XR CHEST 1V, 08/02/2023, 16:55. FINDINGS: No acute cardiopulmonary abnormality is seen. Dictated by: Neal Serna M.D. on 10/07/2024 at 2:05 Approved by: Neal Serna M.D. on 10/07/2024 at 2:06
== END ==
PROVIDERS: Family Provider Physician Assistant; PCP Internal Medicine; Referring Provider Nurse Practitioner Family; Visit Provider Nurse Practitioner Family
DX: R05.9 Cough, unspecified (principal)
CPT/HCPCS: 0241U; 71046

== ENCOUNTER → 2024-12-14 10:15 | Outpatient (CLI) | payer MEDICARE, SELFPAY ==
[2024-12-14 10:52] LABS: Hematocrit 37.2 % (36-46); Hemoglobin 12.5 g/dL (12.0-16.0); Mean Corpuscular HGB Conc 33.6 % (30-36); Mean Corpuscular Hemoglobin 32.1 PG (26-34); Mean Corpuscular Volume 95.5 fL (80-100); Platelet Count 164 X10^3/uL (150-400); Red Blood Cell Count 3.89 X10^6/uL (4.0-5.2); Red Cell Distribution Width 12.6 % (11.6-14.8); White Blood Cell Count 7.4 X10^3/uL (4.5-11.0)
[2024-12-14 11:12] LABS: Erythrocyte Sedimentation Rate 56 MM/HR (0-20)
[2024-12-14 11:27] LABS: Alanine Aminotransferase 371 IU/L (<35); Albumin 4.1 g/dL (3.5-5.0); Albumin Globulin Ratio 1.4 (1.0-2.8); Alkaline Phosphatase 158 U/L (38-126); Amylase 50 U/L (30-110); Aspartate Aminotransferase 529 IU/L (14-36); BUN Creatinine Ratio 17.9 (6-22); Bilirubin Total 0.8 mg/dL (0.2-1.3); Blood Urea Nitrogen 12 mg/dL (7-17); C-Reactive Protein Quant 2.1 mg/dL (<1.0); Calcium 9.6 mg/dL (8.4-10.2); Carbon Dioxide 25 mmol/L (22-32); Chloride 104 mmol/L (98-107); Estimated Glomerular Filt Rate > 60 mL/min (>60); Globulin 2.9 g/dL (1.7-4.1); Glucose 96 mg/dL (70-99); HEMOLYSIS < 15 (0-50); Lipase 36 U/L (23-300); Sodium 137 mmol/L (137-145)
[2024-12-14 13:48] LABS: Appearance Urine UA CLEAR; Bilirubin Urine UA 1+ (NEGATIVE); Color Urine UA YELLOW; Glucose Urine UA TRACE g/dL (Negative); Ketones Urine UA TRACE (NEGATIVE); Leukocyte Esterase Urine UA 2+ (NEGATIVE); Nitrite Urine UA POSITIVE (Negative); Occult Blood Urine UA NEGATIVE (Negative); Protein Urine UA 1+ (Negative)
[2024-12-14 14:01] LABS: pH Urine UA 5.5 (4.5-8.0)
[2024-12-14 14:05] LABS: Bacteria Urine Moderate (10-30); Culture Indicated Urine Specimen Cultured; Ictotest Urine Negative (Negative); RBC Urine 1-5/HPF (0-5/HPF); Squamous Epithelial Cell Urine 1-5 /HPF (0-5/HPF); Urine Volume 10mL (spun); WBC Urine 10-30/HPF (0-5/HPF)
== END ==
PROVIDERS: Family Provider Physician Assistant; PCP Internal Medicine; Referring Provider Internal Medicine; Visit Provider Internal Medicine
DX: R10.11 Right upper quadrant pain (principal); M35.05 Sjogren syndrome with inflammatory arthritis
CPT/HCPCS: 36415; 80053; 81001; 82150; 83690; 85027; 85651; 86140; 87086

== ENCOUNTER → 2024-12-21 07:45 | Outpatient (CLI) | payer MEDICARE, SELFPAY ==
--- NOTE | 2024-12-21 07:46 | DI.US.S_ITS ---
PROCEDURE: US ABDOMEN LIMITED INDICATIONS: upper abdominal pain, elevated liver enzymes TECHNIQUE: Real-time scanning was performed of the abdominal and retroperitoneal organs, with image documentation. COMPARISON: [facility], , US ABDOMEN LIMITED, 02/08/2020, 8:18. FINDINGS: Liver: Liver is normal in size and homogeneous in echotexture. Gallbladder: Surgically absent Biliary ducts: Intrahepatic bile ducts are non-dilated. Extrahepatic bile duct caliber measures 3 mm. Normal is 6-7 mm or less in diameter, or 10 mm or less post-cholecystectomy. Pancreas: Visualized portions of the pancreas are sonographically normal. Miscellaneous: No free abdominal fluid. IMPRESSION: No acute sonographic abnormality identified Dictated by: Lobo Subramanian M.D. on 12/21/2024 at 8:36 Approved by: Lobo Subramanian M.D. on 12/21/2024 at 8:38
== END ==
PROVIDERS: Family Provider Physician Assistant; PCP Internal Medicine; Referring Provider Internal Medicine; Visit Provider Internal Medicine
DX: R10.11 Right upper quadrant pain (principal); R76.8 Other specified abnormal immunological findings in serum; R74.8 Abnormal levels of other serum enzymes; Z90.49 Acquired absence of other specified parts of digestive tract
CPT/HCPCS: 76705

== ENCOUNTER → 2024-12-21 13:54 | Outpatient (CLI) | payer MEDICARE, SELFPAY ==
[2024-12-21 14:57] LABS: Alanine Aminotransferase 123 IU/L (<35); Albumin 4.3 g/dL (3.5-5.0); Albumin Globulin Ratio 1.6 (1.0-2.8); Alkaline Phosphatase 162 U/L (38-126); Aspartate Aminotransferase 53 IU/L (14-36); Bilirubin Total 0.3 mg/dL (0.2-1.3); Bilirubin Unconjugated 0.1 mg/dL (0.0-1.1); Globulin 2.7 g/dL (1.7-4.1); HEMOLYSIS < 15 (0-50)
[2024-12-22 22:10] LABS: HBsAg Screen Negative (Negative); Hepatitis A Antibody IgM Negative (Negative); Hepatitis B Core Antibody IgM Negative (Negative); Hepatitis C Antibody Non Reactive (Non Reactive)
[2024-12-26 05:39] LABS: ANA Screen, IFA Positive (.)
== END ==
PROVIDERS: Family Provider Physician Assistant; PCP Internal Medicine; Referring Provider Internal Medicine; Visit Provider Internal Medicine
DX: B19.9 Unspecified viral hepatitis without hepatic coma (principal); R74.8 Abnormal levels of other serum enzymes; M35.05 Sjogren syndrome with inflammatory arthritis; R10.11 Right upper quadrant pain; R76.8 Other specified abnormal immunological findings in serum; Z90.49 Acquired absence of other specified parts of digestive tract
CPT/HCPCS: 36415; 76705; 80074; 80076; 86038

== ENCOUNTER → 2025-04-15 07:52 | Outpatient (CLI) | payer MEDICARE, SELFPAY ==
[2025-04-15 09:20] LABS: Add Manual Diff / Slide Review NO; Hematocrit 36.2 % (36-46); Hemoglobin 12.2 g/dL (12.0-16.0); Lymphocytes Absolute Auto 1700 /uL (1100-4500); Mean Corpuscular HGB Conc 33.7 % (30-36); Mean Corpuscular Hemoglobin 32.0 PG (26-34); Mean Corpuscular Volume 94.8 fL (80-100); Platelet Count 204 X10^3/uL (150-400)
[2025-04-15 09:42] LABS: Alanine Aminotransferase 29 IU/L (<35); Albumin 3.9 g/dL (3.5-5.0); Albumin Globulin Ratio 1.5 (1.0-2.8); Alkaline Phosphatase 73 U/L (38-126); Blood Urea Nitrogen 14 mg/dL (7-17); Calcium 9.6 mg/dL (8.4-10.2); Carbon Dioxide 27 mmol/L (22-32); Chloride 105 mmol/L (98-107); Creatine Kinase 115 U/L (30-135); Estimated Glomerular Filt Rate > 60 mL/min (>60); Globulin 2.6 g/dL (1.7-4.1); Glucose 87 mg/dL (70-99); HEMOLYSIS < 15 (0-50); Potassium 4.3 mmol/L (3.4-5.1); Sodium 137 mmol/L (137-145); Total Protein 6.5 g/dL (6.3-8.2)
[2025-04-15 09:56] LABS: Free T3, Triiodothyronine Free 3.03 pg/mL (2.77-5.27)
[2025-04-15 10:10] LABS: TSH w/ Reflex to FT4 3.38 uIU/mL (0.47-4.68)
[2025-04-15 12:01] LABS: Appearance Urine UA CLEAR; Bilirubin Urine UA NEGATIVE (NEGATIVE); Color Urine UA YELLOW; Glucose Urine UA NEGATIVE (Negative); Ketones Urine UA NEGATIVE (NEGATIVE); Leukocyte Esterase Urine UA 1+ (NEGATIVE); Nitrite Urine UA NEGATIVE (Negative); Occult Blood Urine UA NEGATIVE (Negative); Protein Urine UA NEGATIVE (Negative); Specific Gravity Urine UA 1.025 (1.000-1.035); Urobilinogen Urine UA 0.2 E.U./dL (0.2)
[2025-04-15 12:03] LABS: pH Urine UA 6.0 (4.5-8.0)
[2025-04-15 12:05] LABS: Culture Indicated Urine Specimen Cultured
[2025-04-15 15:52] LABS: Hepatitis B Surface Antigen NEGATIVE s/c (NEGATIVE)
[2025-04-15 16:14] LABS: Hep C Virus Ab w/Reflex Quant NEGATIVE s/c (NEGATIVE)
== END ==
PROVIDERS: PCP Internal Medicine; Referring Provider Internal Medicine; Visit Provider Internal Medicine Rheumatology
DX: M25.50 Pain in unspecified joint (principal); M35.00 Sjogren syndrome, unspecified; M79.10 Myalgia, unspecified site; R53.83 Other fatigue; Z11.59 Encounter for screening for other viral diseases; Z72.89 Other problems related to lifestyle
CPT/HCPCS: 36415; 80053; 81001; 82550; 84443; 84481; 85025; 85651; 86038; 86140; 86160; 86200; 86256; 86430; 86803; 87086; 87340